=== PATIENT | female | born 1945 | race Caucasian/White ===

== ENCOUNTER 2024-04-14 22:45 | Emergency (ER) | payer MEDICARE, SELFPAY ==
--- NOTE | ~2024-04-14 | CT_ITS ---
EXAMINATION CT HEAD WITHOUT CONTRAST CT CERVICAL SPINE WITHOUT CONTRAST CLINICAL INFORMATION: Head trauma COMPARISON: None TECHNIQUE: CT of the head was performed without intravenous contrast. Reformatted axial, coronal, and sagittal images were reviewed. Then, multidetector CT of the cervical spine was performed without intravenous contrast. Reformatted axial, coronal and sagittal images were reviewed. This CT examination was performed using dose optimization techniques as appropriate, variously including the following: *Automated exposure control *Adjustment of mA and/or kV according to patient size (this includes techniques or standardized protocols for targeted exams where dose is matched to indication/reason for exam; i.e. extremities or head) *Use of iterative reconstruction technique DLP: 1235 mGy-cm FINDINGS: HEAD: No intracranial hemorrhage, extra-axial fluid collection, or midline shift is identified. Tran-white matter differentiation is preserved. Frontoparietal sulcal prominence disproportionate to ventricular size. The ventricles are within normal limits. Basal cisterns are within normal limits. Paranasal sinuses are clear. Mastoid air cells and middle ear cavities are clear. Right parietal scalp hematoma. No acute calvarial fractures. CERVICAL SPINE: There is no fracture, malalignment or prevertebral soft tissue abnormality seen in the cervical spine. There is no abnormal widening of the predental space, separation of the lateral masses of C1 or facet joint distraction. Vertebral body and intervertebral disc height are normal. No significant central canal or neuroforaminal stenosis. The visualized portions of the lung parenchyma is unremarkable. CT/CT head/brain wo IV con IMPRESSION: CT HEAD: 1. No acute intracranial abnormality. 2. Right parietal scalp hematoma without fracture. 3. Frontoparietal cerebral atrophy. CT CERVICAL SPINE: 1. No acute fracture or malalignment of the cervical spine. Electronically signed by: Barry Hansen DO 04/14/2024 11:52 PM EDT
--- NOTE | ~2024-04-14 | CT_ITS ---
EXAMINATION CT HEAD WITHOUT CONTRAST CT CERVICAL SPINE WITHOUT CONTRAST CLINICAL INFORMATION: Head trauma COMPARISON: None TECHNIQUE: CT of the head was performed without intravenous contrast. Reformatted axial, coronal, and sagittal images were reviewed. Then, multidetector CT of the cervical spine was performed without intravenous contrast. Reformatted axial, coronal and sagittal images were reviewed. This CT examination was performed using dose optimization techniques as appropriate, variously including the following: *Automated exposure control *Adjustment of mA and/or kV according to patient size (this includes techniques or standardized protocols for targeted exams where dose is matched to indication/reason for exam; i.e. extremities or head) *Use of iterative reconstruction technique DLP: 1235 mGy-cm FINDINGS: HEAD: No intracranial hemorrhage, extra-axial fluid collection, or midline shift is identified. Tran-white matter differentiation is preserved. Frontoparietal sulcal prominence disproportionate to ventricular size. The ventricles are within normal limits. Basal cisterns are within normal limits. Paranasal sinuses are clear. Mastoid air cells and middle ear cavities are clear. Right parietal scalp hematoma. No acute calvarial fractures. CERVICAL SPINE: There is no fracture, malalignment or prevertebral soft tissue abnormality seen in the cervical spine. There is no abnormal widening of the predental space, separation of the lateral masses of C1 or facet joint distraction. Vertebral body and intervertebral disc height are normal. No significant central canal or neuroforaminal stenosis. The visualized portions of the lung parenchyma is unremarkable. CT/CT cervical spine wo IV con IMPRESSION: CT HEAD: 1. No acute intracranial abnormality. 2. Right parietal scalp hematoma without fracture. 3. Frontoparietal cerebral atrophy. CT CERVICAL SPINE: 1. No acute fracture or malalignment of the cervical spine. Electronically signed by: Barry Hansen DO 04/14/2024 11:52 PM EDT
--- NOTE | ~2024-04-14 | XR_ITS ---
EXAMINATION: XR SHOULDER, RIGHT CLINICAL INFORMATION: Post reduction COMPARISON: Shoulder radiograph 04/15/2024. TECHNIQUE: AP and transscapular radiographs of the right shoulder. FINDINGS: Images are suboptimal secondary to suboptimal radiographic penetration and orientation. Grossly normal glenohumeral joint space and alignment is noted. Right axillary lymph node dissection clips are visualized. Focal cortical discontinuity and irregularity is present along the lateral aspect of the humeral head in the region of the greater tuberosity. XR/XR shoulder RT min 2V IMPRESSION: Normal glenohumeral alignment status post interval reduction compared with 04/15/2024 12:17 AM. Focal cortical irregularity of the humeral head in the region of the greater tuberosity which may represent partial visualization of an acute fracture. Electronically signed by: Riky Padilla MD 04/15/2024 01:54 AM EDT
--- NOTE | ~2024-04-14 | XR_ITS ---
EXAMINATION: RIGHT SHOULDER AND RIGHT HUMERUS CLINICAL INFORMATION: Fall with pain COMPARISON: None available. TECHNIQUE: 2 views right shoulder, 2 views right humerus FINDINGS: There is anteroinferior dislocation of the right glenohumeral joint. No fractures are seen. Some degenerative changes are seen at the right AC joint. Surgical clips present likely in the right axilla. XR/XR shoulder RT min 2V IMPRESSION: Anteroinferior dislocation of the right glenohumeral joint. Electronically signed by: Sadiq Piña MD 04/15/2024 12:37 AM EDT
--- NOTE | ~2024-04-14 | XR_ITS ---
EXAMINATION: RIGHT SHOULDER AND RIGHT HUMERUS CLINICAL INFORMATION: Fall with pain COMPARISON: None available. TECHNIQUE: 2 views right shoulder, 2 views right humerus FINDINGS: There is anteroinferior dislocation of the right glenohumeral joint. No fractures are seen. Some degenerative changes are seen at the right AC joint. Surgical clips present likely in the right axilla. XR/XR humerus RT IMPRESSION: Anteroinferior dislocation of the right glenohumeral joint. Electronically signed by: Sadiq Piña MD 04/15/2024 12:37 AM EDT
[2024-04-14 22:55] VITALS: BP 150/100; PULSE 80; O2SAT 98
[2024-04-14 22:56] VITALS: BP 180/88; PULSE 99; RESP 22; TEMP 36.7; O2SAT 97; BMI 41.0
--- NOTE | 2024-04-14 23:17 | ED.FALL ---
HPI - Fall General Chief Complaint: Fall Stated Complaint: HUBERT FALL +HS -LOC, R ARM PAIN PER EMS Source: patient and EMS Mode of arrival: EMS Limitations: no limitations History of Present Illness ED Provider: CARL HPI Narrative: 79 yo female with PMH of throat cancer on therapy, daily baby aspirin who reports feeling fine today but went to go downstairs and thought she was at the bottom of stairs but in fact there was another step and she fell down hitting her head on floor. No LOC. Brother came right up and got her. She has pain on R shoulder. She is R hand dominant. Denies any other injuries. complaint: fall Onset (ago): hour(s) (1) Fall from: standing Fall witnessed: no Place fall occurred: home Loss of consciousness: none Prolonged down time: no Symptoms prior to fall: none Context: tripped/slipped Location of injury: head Location of injury - extremities: right: shoulder Severity: moderate Quality: dull and aching Associated symptoms (after fall): headache Related Data Allergies Allergy/AdvReac Type Severity Reaction Status Date / Time No Known Allergies Allergy Verified 04/14/24 23:01 [No Known Allergies*] Review of Systems Review of Systems: Constitutional : No Fever, No Chills ENT/Mouth : No Ear Pain, No Hoarseness, No sore throat Eyes: No Eye Pain, No Swelling, No Redness, No Foreign Body Cardiovascular : No Chest Pain, No SOB Respiratory : No Cough, No Dyspnea Gastrointestinal : No Nausea, No Vomiting, No Diarrhea, No abdominal Pain Genitourinary : No Dysuria, No Hematuria Musculoskeletal : positive joint pain, No Myalgias, No Joint Swelling Skin : No Skin lacerations, No rash Neuro : No Weakness, No Numbness, No Loss of Consciousness, No Dizziness, pos Headache Psych : No Anxiety/Panic, No Depression All other systems reviewed and are negative COUNTS INCLUDE 234 BEDS AT THE [facility] Past Medical History Attestation statement: The following information was validated with the patient. Source: old records reviewed Medical History (Updated 04/15/24 @ 00:53 by Fern Barber DO) Throat cancer Social History Social History (Updated 04/14/24 @ 23:35 by Fern Barber DO) Patient Tobacco Use Status: Tobacco use Unknown Advance Directives: No Physical Exam Vital Signs: Vital Signs: Last Vital Signs Temp 98.2 F 04/15/24 03:13 Pulse 92 04/15/24 03:13 Resp 20 04/15/24 03:13 BP 139/66 04/15/24 03:13 Pulse Ox 94 04/15/24 03:13 O2 Del Method Room Air 04/15/24 03:13 Oxygen Flow Rate 3 04/15/24 01:30 BMI result Body Mass Index 41.0 Appearance: Alert. Oriented X3. No acute distress. Eyes: Pupils equal, round and reactive to light. ENT: Pharynx normal. R parietal scalp hematoma noted no iqbal or raccoon sign Neck: Normal inspection. Neck supple. CVS: Normal heart rate and rhythm. Pulses normal. Respiratory: No respiratory distress. Breath sounds normal. Abdomen: Soft and nontender. Skin: Skin warm and dry. Normal skin color. Normal skin turgor. Extremities: No lower extremity edema. 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 No motor deficit. No sensory deficit. Course Course Course Narrative: possible greater tuberosity fracture on xray but patient was very easy to reduce x 1 attempt with simple maneuver no issues did notify patient of results of post reduction xray Medications Administered Discontinued Medications Generic Name Dose Route Start Last Admin Trade Name Dick PRN Reason Stop Dose Admin Morphine Sulfate 15 mg 04/14/24 23:06 04/14/24 23:35 Morphine Sulfate Immed Release 15 Mg Tablet PO 04/14/24 23:07 15 mg ONCE ONE Administration Ondansetron HCl 4 mg 04/15/24 01:27 04/15/24 01:18 Ondansetron Hcl 4 Mg/2 Ml Vial IVPUSH 04/15/24 01:28 4 mg ONCE ONE Administration Propofol 100 mg 04/15/24 00:38 04/15/24 01:20 Propofol 200 Mg/20 Ml Vial IVPUSH 04/15/24 00:39 50 mg ONCE ONE Administration Procedures Orthopedic Joint Reduction Joint #1: Time Out Performed: Yes Side: right Joint Reduction Location: shoulder Analgesia: procedural sedation Shoulder Technique Used (if applicable): external rotation Post-reduction neuro exam: intact and no change Post-reduction vascular: intact and no change Post Reduction X-Ray Obtained: Yes Post Reduction X-Ray Results: reduced Splint Applied: Yes Patient Tolerated Procedure: well and no complications Procedural Sedation Indication: fracture/dislocation reduction ASA Class: II Mallampati Class: II Time of Last PO Intake: 18:00 Preparation: cardiac monitor technician applied, pulse oximeter, capnometry used, supplemental O2 applied, suction/airway equipment at bedside and IV secured IV Propofol dose (mg): 50 Patient Tolerated Procedure: well and no complications Complications: none Medical Decision Making Medical Decision Making MDM Narrative: 79 yo female with PMH of throat cancer here with c/o mechanical trip and fall now with R shoulder injury and head trauma not on thinners at this time will need shoulder xray and head/cspine. PO morphine ordered. Differential Diagnosis Differential Diagnoses: The differential diagnosis associated with the presentation includes head trauma, neck trauma, shoulder fracture/contusion/dislocation Admission/Observation Consideration of admission/observation: Escalation of care including admission/observation considered back to baseline GCS 15 Independent Interpretation I performed an independent interpretation of an: Plain X-Ray (+ dislocation) and CT Scan (no trauma) Radiology Impression Discussion of test interpretation with radiology: I have reviewed the radiologist's reading. Independent Historian Clinical information obtained from an independent historian. History obtained from or confirmed by: EMS and Other Discharge Plan Discharge Clinical Impression: Head injury Qualifiers: Encounter type: initial encounter Qualified Code(s): S09.90XA - Unspecified injury of head, initial encounter Anterior shoulder dislocation Qualifiers: Encounter type: initial encounter Laterality: right Qualified Code(s): S43.014A - Anterior dislocation of right humerus, initial encounter Patient Disposition: Home, Self-Care Instructions: Shoulder Dislocation (ED), Head Injury (ED), Shoulder Immobilizer (ED) Additional Instructions: no reaching above behind or below for 2 weeks no lifting more than 10lbs for 2 weeks sling for one week can take off to shower follow up with orthopedics call Tuesday to schedule appointment return for any worsening symptoms or concerns such as numbness weakness vomiting confusion xray did show possible small fracture of the greater tuberosity of the humeral head it is important you follow up with orthopedics so they can monitor you Referrals: [facility] [place] Orthopedic Surgeons [Provider Group] Interventions: ED Discharge Assessment Last Done: 04/15/24 03:13 Discharge Date/Time: 04/15/24 03:15 Print Language: Thai
[2024-04-14] MEDS: Morphine Sulfate Immed Release 15 MG TABLET PO (23:35)
--- OUTSIDE RECORDS SUMMARY | 2024-04-14 23:39 | XMS_ITS | Continuity of Care Document ---
Author Organization [facility] Address [address] [place] [address]- Care Team Providers Care Land Sales Agent Name Role Phone Aditya Haley HU Primary Care Physician Encounter [facility] Date(s): 11/10/21 - 12/10/21 [facility] [address] [place] [id number] Allergies, Adverse Reactions, Alerts No Known Allergies Immunizations Given and Recorded Vaccine Date Status Refusal Reason SARS-CoV-2 (COVID-19) mRNA BNT-162b2 vac 03/26/21 Recorded SARS-CoV-2 (COVID-19) mRNA BNT-162b2 vac 08/25/20 Given SARS-CoV-2 (COVID-19) mRNA BNT-162b2 vac 08/04/20 Given influenza virus vaccine, inactivated 02/17/21 Carrillo rded Influenza Virus Vaccine (oldterm) 03/19/20 Recorde d Influenza Virus Vaccine (oldterm) 03/17/19 Recorde d zoster vaccine, inactivated 08/05/18 Recorded zoster vaccine, inactivated 03/23/18 Recorded pneumococcal 23-valent vaccine 04/01/17 Recorded pneumococcal 23-valent vaccine 06/20/09 Recorded pneumococcal 13-valent vaccine 10/28/15 Recorded pneumococcal 13-valent vaccine 06/20/15 Recorded Not Given Vaccine Date Status Refusal Reason tetanus-diphtheria toxoids (Td) 06/27/19 Not Given Parent Or Guardian Refuses tetanus-diphtheria toxoids (Td) 01/16/19 Not Given Parent Or Guardian Refuses Medications benazepril-hydrochlorothiazide 10 mg-12.5 mg oral tablet 1 tablet, By Mouth, Daily, # 90 tablet, 3 Refills, Maintenance, 11/06/20 16:40:00 EDT, [facility], 90, TAKE 1 TABLET BY MOUTH DAILY, 156, cm, 12/27/19 12:57:00 EDT, Height Start Date: 11/06/20 Status: Ordered fenofibrate 160 mg oral tablet 1 tablet, By Mouth, Daily in AM, # 90 tablet, 3 Refills, [facility], 156, cm, 12/27/19 12:57:00 EDT, Height Start Date: 05/04/21 Status: Ordered Fish Oil = 1,000 mg, By Mouth, Daily, 0 Refills, Maintenance, 05/09/18 13:21:40 EST Start Date: 05/09/18 Status: Ordered lidocaine-prilocaine 2.5%-2.5% topical cream 1 application, Topically, Once, use 40 min before port access, # 30 Gm, 0 Refills, Soft Stop, 11/30/21 16:17:00 EDT, [id number], Partial fill upon patient request if the prescription is for a schedule II opioid drug., 1 applica... Start Date: 11/30/21 Status: Ordered Misc Rx Refills 0, Maintenance, [facility], 10/27/21 14:50:00 EDT, Supply Start Date: 10/27/21 Status: Ordered Multivitamin Daily, 0 Refills, Maintenance, 09/05/18 15:47:17 EDT Start Date: 09/05/18 Status: Ordered omeprazole 20 mg oral enteric coated capsule 1 capsule, By Mouth, Daily, # 90 capsule, 0 Refills, Maintenance, 09/01/21 10:17:00 EDT, [facility], 156, cm, 09/01/21 8:41:00 EDT, Height Start Date: 09/01/21 Status: Ordered ondansetron 8 mg oral tablet 1 tablet = 8 mg, By Mouth, Every 8 hours, PRN as needed for nausea/vomiting, # 30 tablet, 1 Refills, Maintenance, 11/30/21 8:53:00 EDT, Tablet, [facility] #[id number], Partial fill upon patient request if the prescription is for a schedule II opi... Start Date: 11/30/21 Status: Ordered oxybutynin 10 mg/24 hr oral tablet, extended release 1 tablet = 10 mg, By Mouth, Daily, # 90 tablet, 3 Refills, Maintenance, 05/02/19 13:43:21 EST, ER Tablet Start Date: 05/02/19 Status: Ordered prochlorperazine 5 mg oral tablet 1 tablet = 5 mg, By Mouth, Every 6 hours, PRN Nausea & Vomiting, may cause drowsiness, # 30 tablet, 0 Refills, Maintenance, 11/30/21 8:53:00 EDT, [facility] #[id number], Partial fill upon patient request if the prescription is for a schedule II o... Start Date: 11/30/21 Status: Ordered traMADol 50 mg oral tablet 1 tablet = 50 mg, By Mouth, Every 12 hours, PRN as needed for pain, # 8 tablet, 0 Refills, Maintenance, 11/25/21 14:58:00 EDT, Tablet, [facility] #[id number], Partial fill upon patient request if the prescription is for a schedule II opioid drug.... Start Date: 11/25/21 Status: Ordered Problem List Condition Effective Dates Status Health Status Inform ant Allergic rhinitis(Confirmed) Active OAB (overactive bladder)(Confirmed) Active Chronic kidney disease (CKD) stage G3a/Ax(Confirmed) Active Bochdalek hernia(Confirmed) Active Degenerative lumbar disc(Confirmed) Active Dyslipidemia(Confirmed) Active GERD (gastroesophageal reflu x disease)(Confirmed) Active History of breast cancer ([facility] breast) 1996 S/P umpectomy and radiation(Confirmed) Active Hypertension(Confirmed) Active Nephrolithiasis(Confirmed) Active Malignant neoplasm of tonsil(Confirmed) Active Morbid obesity(Confirmed) Active Multiple pulmonary nodules - incidental finding stable, next CT December 2019(Confirmed) Active DNR (do not resuscitate)(Confirmed) Active Osteopenia of femoral neck(Confirmed) Active NSAID long-term use(Confirmed) Active Severe obesity(Confirmed) Active Social History Social History Type Response Smoking Status Former smoker, quit more than 30 days ago; Tobacco use times per day: social smoker; Started at age: 18; Stopped at age: 23; entered on: 06/29/21 Sex
--- OUTSIDE RECORDS SUMMARY | 2024-04-14 23:40 | XMS_ITS | Continuity of Care Document ---
Author Organization [facility] Leonid Sergo lt Address [address] [place] [address]- Care Team Providers Care Cma Or Lpn Name Role Phone Aditya MANUFACTURING WEAVERHaley Primary Care Physician Encounter [facility] Date(s): 06/14/23 - 07/14/23 [facility] Adult [address] [place] [address]- Allergies, Adverse Reactions, Alerts No Known Allergies Immunizations Given and Recorded Vaccine Date Status Refusal Reason pneumococcal 20-valent conjugate vaccine 1 01/17/23 Given [id number] 12y+ bivalent booster vax 2 04/27/22 Given influenza virus vaccine, inactivated 04/09/22 Carrillo rded influenza virus vaccine, inactivated 02/17/21 Carrillo rded influenza virus vaccine, inactivated 03/23/18 Carrillo rded influenza virus vaccine, inactivated 04/01/17 Carrillo rded influenza virus vaccine, inactivated 03/18/16 Carrillo rded SARS-CoV-2 mRNA ([id number]) vax 09/30/21 Recorded SARS-CoV-2 (COVID-19) mRNA BNT-162b2 vac 03/26/21 Recorded SARS-CoV-2 (COVID-19) mRNA BNT-162b2 vac 08/25/20 Given SARS-CoV-2 (COVID-19) mRNA BNT-162b2 vac 08/04/20 Given Influenza Virus Vaccine (oldterm) 03/19/20 Recorde d Influenza Virus Vaccine (oldterm) 03/17/19 Recorde d zoster vaccine, inactivated 08/05/18 Recorded zoster vaccine, inactivated 03/23/18 Recorded pneumococcal 23-valent vaccine 04/01/17 Recorded pneumococcal 23-valent vaccine 06/20/09 Recorded pneumococcal 13-valent vaccine 10/28/15 Recorded pneumococcal 13-valent vaccine 06/20/15 Recorded 1Result Comment: [id number] 2Result Comment: [id number] Medications 1 breast prosthesis and three bras 1 breast prosthesis and three bras, See Instructions, # 4 each, Refills 0, Tot. Refills 0, Maintenance, DX: Breast cancer, 10/29/22 14:22:00 EDT, Supply Start Date: 10/29/22 Status: Ordered cevimeline 30 mg oral capsule 1 capsule = 30 mg, By Mouth, 3 times a day, Stop taking Pilocarpine when taking this medication, # 90 capsule, 1 Refills, Maintenance, 06/14/23 12:25:00 EST, Capsule, [id number], Partial fillupon patient request if the prescription is for a s... Start Date: 06/14/23 Stop Date: 08/13/23 Status: Ordered fenofibrate 160 mg oral tablet 1 tablet, By Mouth, Daily, # 90 tablet, 1 Refills, Maintenance, 06/14/23 20:37:00 EST, [facility], 153, cm, 04/14/23 15:06:00 EDT, Height, 87.6, kg, 04/14/23 15:06:00 EDT, Dry Weight Start Date: 06/14/23 Status: Ordered omeprazole 20 mg oral enteric coated capsule 1 capsule, By Mouth, Daily, PRN NEEDED FOR DYSPEPSIA, # 90 capsule, 1 Refills, Maintenance, 04/05/23 10:51:00 EDT, [facility] ([facility]), 153, cm, 01/17/23 9:12:00 EDT, Height, 93.3, kg, 09/29/22 15:49:00 EDT, Dry Weight Start Date: 04/05/23 Status: Ordered PreviDent 5000 Enamel Protect 1.1%-5% topical paste 1 application, Topically, 2 times a day, rinse and spit; do not swallow, # 100 mL, 6 Refills, Maintenance, 04/14/23 18:52:00 EDT, Paste, [id number], Partial fill upon patient request if the prescription is for a schedule II opioid drug., 1 aminah... Start Date: 04/14/23 Stop Date: 06/07/24 Status: Ordered Problem List Condition Confirmation Course Effective Dates Status H ealth Status Informant Allergic rhinitis Confirmed Active OAB (overactive bladder) Confirmed Active Chronic kidney disease (CKD) stage G3a/Ax Confirmed Active Bochdalek hernia Confirmed Active Degenerative lumbar disc Confirmed Active Dyslipidemia Confirmed Active GERD (gastroesophageal reflux disease) Confirmed Active History of breast cancer (right breast) 1996 S/P umpectomy and radiation Confirmed Active History of cancer tonsil Confirmed Active Nephrolithiasis Confirmed Active Multiple pulmonary nodules Confirmed Active DNR (do not resuscitate) Confirmed Active Osteopenia of femoral neck Confirmed Active Severe obesity (BMI 35.0-39.9) with comorbidity Confirmed Active 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 Social History Social History Type Response Smoking Status Former smoker, quit more than 30 days ago; Tobacco use times per day: social smoker; Started at age: 18; Stopped at age: 23; entered on: 06/29/21 Sex Patient Care team information Care Team Personnel Name: Camille Mathew RN Position: S RN Member Role: Primary Care Nurse Name: Haley Burgess NP Position: [facility] PCO Associate Professional Member Role: PCP Address: Address: [address] [place] [phone]- [place] Name: Poornima Martinez RN Position: S RN Member Role: Primary Care Nurse Name: Suhail Duckworth RN Position: [facility] RN Adela Member Role: Primary Care Nurse Name: Holli Ramos RN Position: S RN Member Role: Primary Care Nurse Name: Katina Samaniego Position: S RN Member Role: Primary Care Nurse Name: Felecia Hernandez RN Position: [facility] Onco RN Member Role: Primary Care Nurse Name: Verito Alonzo NP Position: [facility] Associate Professional Member Role: Primary Care Nurse Address: Address: [address] [place] [address] [place] [address]- [place] Name: Minh Bryant RN Position: S RN Member Role: Primary Care Nurse Care Team Related Persons Name: ZAINA ROBERSON Address: [address] [address]
--- OUTSIDE RECORDS SUMMARY | 2024-04-14 23:40 | XMS_ITS | Continuity of Care Document ---
Author Organization [facility] ter Address [address] [place] [id number]- Care Team Providers Care Glass Mold Repairer Name Role Phone Aditya Haley HU Primary Care Physician Encounter [facility] Date(s): 11/23/21 - 11/23/[address] [address] Dis[facility] Disposition: A-D/C Home Attending Physician: Ken Young MD Admitting Physician: Ken Young MD Referring Physician: Ken Young MD Allergies, Adverse Reactions, Alerts No Known Allergies [...] 13:21:40 EST Start Date: 05/09/18 Status: Ordered Misc Rx Refills 0, Maintenance, [...] EDT, Height Start Date: 09/01/21 Status: Ordered oxybutynin 10 mg/24 hr oral tablet, extended release 1 tablet = 10 mg, By Mouth, Daily, # 90 tablet, 3 Refills, Maintenance, 05/02/19 13:43:21 EST, ER Tablet Start Date: 05/02/19 Status: Ordered Problem List Condition Effective Dates Status Health Status Inform ant Allergic rhinitis(Confirmed) Active OAB (overactive bladder)(Confirmed) Active Chronic kidney disease (CKD) stage G3a/Ax(Confirmed) Active Bochdalek hernia(Confirmed) Active Degenerative lumbar disc(Confirmed) Active Dyslipidemia(Confirmed) Active GERD (gastroesophageal reflu x disease)(Confirmed) Active History of breast cancer ([facility] breast) 1996 S/P umpectomy and radiation(Confirmed) Active Hypertension(Confirmed) Active Nephrolithiasis(Confirmed) Active Malignant neoplasm of tonsil(Confirmed) Active Morbid obesity(Confirmed) Active Multiple pulmonary nodules - incidental finding stable, next CT December 2019(Confirmed) Active DNR (do not resuscitate)(Confirmed) Active Osteopenia of femoral neck(Confirmed) Active NSAID long-term use(Confirmed) Active Severe obesity(Confirmed) Active Vital Signs Most recent to oldest [Reference Range]: 1 2 3 Height 155 cm (11/23/21 6:51 PM) 155 cm (11/23/21 11:59 AM) 155 cm (11/19/21 11:50 AM) Weight 104.1 kg (11/23/21 6:51 PM) 104.1 kg (11/23/21 6:23 PM) 103.5 kg (11/19/21 11:50 AM) Oxygen Saturation [94-100 %] 97 % (11/23/21 6:51 PM) 96 % (11/23/21 6:00 PM) 93 % *L* (11/23/21 5:45 PM) Pulse Rate [55-90 bpm] 95 bpm *H* (11/23/21 6:51 PM) 92 bpm *H* (11/23/21 11:59 AM) Body Mass Index [18.5-24.99] 43.33 *>HHI* (11/23/21 6:51 PM) 43.08 *>HHI* (11/19/21 11:50 AM) Blood Pressure [90-138/55-84 mm Hg] 105/47mm Hg (11/23/21 6:51 PM) 116/59mm Hg (11/23/21 6:00 PM) 122/60mm Hg (11/23/21 5:45 PM) Respiratory Rate [16-30 br/min] 18 br/min (11/23/21 6:51 PM) 24 br/min (11/23/21 6:00 PM) 21 br/min (11/23/21 5:45 PM) Temperature [96.8-100.4 DegF] 98.2 DegF (11/23/21 6:51 PM) 98.2 DegF (11/23/21 4:30 PM) 97.7 DegF (11/23/21 11:59 AM) Liters per Minute 2 L/min (11/23/21 6:51 PM) 4 L/min (11/23/21 5:45 PM) 4 L/min (11/23/21 5:30 PM) Mode of Delivery (Oxygen) Nasal cannula (11/23/21 6:51 PM) Nasal cannula (11/23/21 5:45 PM) Nasal cannula (11/23/21 5:30 PM) Blood pressure sites Arm, right (11/23/21 6:51 PM) Arm, left (11/23/21 6:00 PM) Arm, left (11/23/21 5:45 PM) Temperature Route Oral (11/23/21 6:51 PM) Temporal (11/23/21 4:30 PM) Temporal (11/23/21 11:59 AM) Dry Weight 103.5 kg (11/19/21 11:50 AM) Weight Obtained Via Standing scale (11/23/21 6:51 PM) Standing scale (11/23/21 6:23 PM) Patient/family stated (11/19/21 11:50 AM) Dry Weight Obtained Via Patient/family s tated (11/19/21 11:50 AM) Social History Social History Type Response Smoking Status Former smoker, quit more than 30 days ago; Tobacco use times per day: social smoker; Started at age: 18; Stopped at age: 23; entered on: 06/29/21 Sex
--- OUTSIDE RECORDS SUMMARY | 2024-04-14 23:40 | XMS_ITS | Continuity of Care Document ---
Author Organization [facility] Address [address] [place] [address]- Care Team Providers Care Multicut Line Operator Name Role Phone Aditya Haley HU Primary Care Physician Encounter [facility] Date(s): 05/11/22 - 06/10/22 [facility] [address] [place] [id number] Allergies, Adverse Reactions, Alerts No Known Allergies Immunizations Given and Recorded Vaccine Date Status Refusal Reason [id number] 12y+ bivalent booster vax 1 04/27/22 Given influenza virus vaccine, inactivated 04/09/22 Carrillo rded influenza virus vaccine, inactivated 02/17/21 Carrillo rded influenza virus vaccine, inactivated 03/23/18 Carrillo rded influenza virus vaccine, inactivated 04/01/17 Carrillo rded influenza virus vaccine, inactivated 03/18/16 Carrillo rded SARS-CoV-2 mRNA ([id number]) vax 09/30/21 Recorded SARS-CoV-2 (COVID-19) mRNA BNT-162b2 [...] 01/16/19 Not Given Parent Or Guardian Refuses 1Result Comment: [id number] Medications acetaminophen 160 mg/5 mL oral liquid 20 mL = 640 mg, By Mouth, 3 times a day, PRN Pain , Mild, Check temperature before using, # 480 mL,2 Refills, Maintenance, 12/22/21 14:32:00 EDT, Liquid, [id number], Partial fill upon patient request if the prescription is for a sche... Start Date: 12/22/21 Status: Ordered cevimeline 30 mg oral capsule 1 capsule = 30 mg, By Mouth, 3 times a day, for 14 days, Stop taking Pilocarpine when taking this medication, # 42 capsule, 0 Refills, Hard Stop 06/14/22 11:18:00 EST, 05/31/22 11:18:00 EST, [id number], Partial fill upon edita... Start Date: 05/31/22 Stop Date: 06/14/22 Status: Ordered cevimeline 30 mg oral capsule 1 capsule = 30 mg, By Mouth, 3 times a day, Stop taking Pilocarpine when taking this medication, # 90 capsule, 5 Refills, Maintenance, 06/14/22 11:18:00 EST, Capsule, [facility] #[id number], Partial fill upon patient request if the prescription i... Start Date: 06/14/22 Stop Date: 12/11/22 Status: Ordered lidocaine-prilocaine 2.5%-2.5% topical cream 1 application, Topically, Once, use 40 min before port access, # 30 Gm, 0 Refills, Soft Stop, 11/30/21 16:17:00 EDT, [facility][id number], Partial fill upon patient request if the prescription is for a schedule II opioid drug., 1 applica... Start Date: 11/30/21 Status: Ordered omeprazole 20 mg oral enteric coated capsule 1 capsule = 20 mg, By Mouth, Daily, Maintenance, 05/11/22 11:55:00 EST, [facility], Partial fill upon patient request if the prescription is for a schedule II opioid drug. Start Date: 05/11/22 Status: Ordered Problem List Condition Confirmation Course Effective Dates Status H ealth Status Informant Allergic rhinitis Confirmed Active OAB (overactive bladder) Confirmed Active Chronic kidney disease (CKD) stage G3a/Ax Confirmed Active Bochdalek hernia Confirmed Active Degenerative lumbar disc Confirmed Active Dyslipidemia Confirmed Active GERD (gastroesophageal reflux disease) Confirmed Active History of breast cancer (right breast) 1996 S/P umpectomy and radiation Confirmed Active Hypertension Confirmed Active Nephrolithiasis Confirmed Active Malignant neoplasm of tonsil Confirmed Active Multiple pulmonary nodules Confirmed Active DNR (do not resuscitate) Confirmed Active Osteopenia of femoral neck Confirmed Active NSAID long-term use Confirmed Active Severe obesity (BMI 35.0-39.9) with comorbidity Confirmed Active Social History Social History Type Response Smoking Status Former smoker, quit more than 30 days ago; Tobacco use times per day: social smoker; Started at age: 18; Stopped at age: 23; entered on: 06/29/21 Sex Patient Care team information Care Team Personnel Name: Camille Mathew RN Position: [facility] RN Member Role: Primary Care Nurse Name: Haley Burgess NP Position: [facility] PCO Associate Professional Member Role: PCP Address: Address: [address] [place] [phone]- Name: Suhail Duckworth RN Position: S RN Member Role: Primary Care Nurse Name: Holli Ramos RN Position: S RN Member Role: Primary Care Nurse Name: Felecia Hernandez RN Position: S Onco RN Member Role: Primary Care Nurse Name: Verito Alonzo RN Position: S RN Member Role: Primary Care Nurse Name: Minh Bryant RN Position: S RN Member Role: Primary Care Nurse Care Team Related Persons Name: DAZAINA Melissa Address: home [address] [place] [address]
--- OUTSIDE RECORDS SUMMARY | 2024-04-14 23:40 | XMS_ITS | Continuity of Care Document ---
Author Organization [facility] Address [address] [place] [address]- Care Team Providers Care Tank Calibrator Name Role Phone Aditya LEAD CYTOGENETIC TECHNOLOGIST, Haley Brownlee Primary Care Physician Encounter 10/03/22 - 10/28/22 [facility] [address] [place] [phone]- Discharge Disposition: [facility] Allergies, Adverse Reactions, Alerts No Known Allergies Immunizations Given and Recorded Vaccine Date Status Refusal Reason [id number] 12y+ bivalent booster vax 1 04/27/22 Given influenza virus vaccine, inactivated 04/09/22 Carrillo rded influenza virus vaccine, inactivated 02/17/21 Carrillo rded influenza virus vaccine, inactivated 03/23/18 Carrillo rded influenza virus vaccine, inactivated 04/01/17 Carrillo rded influenza virus vaccine, inactivated 03/18/16 Carrillo rded SARS-CoV-2 mRNA ([id number]) vax 09/30/21 Recorded SARS-CoV-2 (COVID-19) mRNA BNT-162b2 [...] 13-valent vaccine 10/28/15 Recorded pneumococcal 13-valent vaccine 1/1/16 Recorded Not Given Vaccine Date Status Refusal Reason tetanus-diphtheria toxoids (Td) 06/27/19 Not Given Parent Or Guardian Refuses tetanus-diphtheria toxoids (Td) 01/16/19 Not Given Parent Or Guardian Refuses 1Result Comment: [id number] Medications acetaminophen 160 mg/5 mL oral liquid 20 mL = 640 mg, By Mouth, 3 times a day, PRN Pain , Mild, Check temperature before using, # 480 mL,2 Refills, Maintenance, 12/22/21 14:32:00 EDT, Liquid, [facility][id number], Partial fill upon patient request if the prescription is for a sche... Start Date: 12/22/21 Status: Ordered cevimeline 30 mg oral capsule 1 capsule = 30 mg, By Mouth, 3 times a day, Stop taking Pilocarpine when taking this medication, # 90 capsule, 5 Refills, Maintenance, 06/14/22 11:18:00 EST, Capsule, [facility] #[id number], Partial fill upon patient request if the prescription i... Start Date: 06/14/22 Stop Date: 12/11/22 Status: Ordered cevimeline 30 mg oral capsule 1 capsule = 30 mg, By Mouth, 3 times a day, # 270 capsule, 0 Refills, Maintenance, 09/29/22 4:45:00EDT, Capsule, Partial fill upon patient request if the prescription is for a schedule II opioid drug. Start Date: 09/29/22 Status: Ordered fenofibrate 160 mg oral tablet 1 tablet = 160 mg, By Mouth, Daily, # 90 tablet, 1 Refills, Maintenance, 07/16/22 11:49:00 EST, Tablet, [facility] #[id number], 156, cm, 07/14/22 10:10:00 EST, Height, 91.5, kg, 06/08/22 10:54:00 EST, Dry Weight Start Date: 07/16/22 Stop Date: 01/12/23 Status: Ordered omeprazole 20 mg oral enteric coated capsule 1 capsule = 20 mg, By Mouth, Daily, PRN Dyspepsia, Maintenance, 05/11/22 11:55:00 EST, EC Capsule Start Date: 05/11/22 Status: Ordered ondansetron 4 mg oral tablet 1 tablet = 4 mg, By Mouth, Every 8 hours, # 30 tablet, 0 Refills, Maintenance, 09/26/22 11:11:00 EDT, Tablet, [id number], Partial fill upon patient request if the prescription is for a schedule II opioid drug., 156, cm, 09/16/22 14:53:00 EDT,... Start Date: 09/26/22 Status: Ordered Problem List Condition Confirmation Course Effective Dates Status H ealth Status Informant Allergic rhinitis Confirmed Active OAB (overactive bladder) Confirmed Active Chronic kidney disease (CKD) stage G3a/Ax Confirmed Active Bochdalek hernia Confirmed Active Degenerative lumbar disc Confirmed Active Dyslipidemia Confirmed Active GERD (gastroesophageal reflux disease) Confirmed Active History of breast cancer (right breast) 1996 S/P umpectomy and radiation Confirmed Active Nephrolithiasis Confirmed Active Malignant neoplasm [...] Team Personnel Name: Camille Mathew RN Position: [facility] RN Member Role: Primary Care Nurse Name: Haley Burgess NP Position: [facility] PCO Associate Professional Member Role: PCP Address: Address: [address] [place] [id number] Name: Poornima Martinez RN Position: S RN Member Role: Primary Care Nurse Name: Suhail Duckworth RN Position: [facility] RN Supv Member Role: Primary Care Nurse Name: Holli [...] Persons Name: DAZAINA Melissa Address: home [address] [place] [address]
--- OUTSIDE RECORDS SUMMARY | 2024-04-14 23:40 | XMS_ITS | Continuity of Care Document ---
Author Organization [facility] Leonid Sergo lt Address [address] [place] [address]- Care Team Providers Care Animal Rescuer Name Role Phone Cynthia SEGURA, Ricardo Nicole Primary Care Physician Encounter [facility] Date(s): 06/23/20 - 07/23/20 [facility] Adult [address] [place] [address]- Allergies, Adverse Reactions, Alerts Substance Reaction Severity Status NKA Active Immunizations Given and Recorded Vaccine Date Status Refusal Reason Influenza Virus Vaccine (oldterm) 03/19/20 Recorde d Influenza Virus Vaccine (oldterm) 03/17/19 Recorde d zoster vaccine, inactivated 08/05/18 Recorded zoster vaccine, inactivated 03/23/18 Recorded pneumococcal 13-valent vaccine 06/20/15 Recorded pneumococcal 23-valent vaccine 06/20/09 Recorded Not Given Vaccine Date Status Refusal Reason tetanus-diphtheria toxoids (Td) 06/27/19 Not Given Parent Or Guardian Refuses tetanus-diphtheria toxoids (Td) 01/16/19 Not Given Parent Or Guardian Refuses Medications aspirin 81 mg oral tablet 1 tablet = 81 mg, By Mouth, Daily, 0 Refills, Maintenance, 05/09/18 13:22:31 EST Start Date: 05/09/18 Status: Ordered benazepril-hydrochlorothiazide 10 mg-12.5 mg oral tablet 1 tablet, By Mouth, Daily, # 90 tablet, 0 Refills, Maintenance, 06/23/20 11:16:00 EST, Tablet, [facility], 1 tablet By Mouth Daily, 156, cm, 12/27/19 12:57:00 EDT, Height, 117.7, kg, 08/22/18 15:00:00 EST, Dry Weight Start Date: 06/23/20 Status: Ordered fenofibrate 160 mg oral tablet 1 tablet = 160 mg, By Mouth, Daily in AM, # 90 tablet, 3 Refills, Maintenance, 06/26/20 17:13:00 EST, Tablet, [facility], 156, cm, 12/27/19 12:57:00 EDT, Height, 117.7, kg, 08/22/18 15:00:00 EST, Dry Weight Start Date: 06/26/20 Status: Ordered Fish Oil By Mouth, Daily, 0 Refills, Maintenance, 05/09/18 13:21:40 EST Start Date: 05/09/18 Status: Ordered Lab Order Lab Order, See Instructions, # 1 applicator, Refills 0, Tot. Refills 0, Maintenance, Electrolytes, BUN, Creatinine Please draw by Tuesday Send results to myself and Dr. Ricardo Marie, 08/23/18 11:40:52EST, Compound Start Date: 08/23/18 Status: Ordered Multivitamin Daily, 0 Refills, Maintenance, 09/05/18 15:47:17 EDT Start Date: 09/05/18 Status: Ordered Nasacort Allergy 24HR 55 mcg/inh nasal spray 2 sprays, Nares, Both, Daily at bedtime, # 40 Gm, 5 Refills, Maintenance, 04/12/19 13:35:04 EDT, 2 sprays Nares, Both Daily at bedtime Start Date: 04/12/19 Status: Ordered omeprazole 20 mg oral enteric coated capsule 1 capsule = 20 mg, By Mouth, Daily, # 90 capsule, 0 Refills, Maintenance, 06/04/20 9:21:00 EST, EC Capsule, [facility], 156, cm, 12/27/19 12:57:00 EDT, Height, 117.7, kg, 08/22/18 15:00:00 EST, Dry Weight Start Date: 06/04/20 Status: Ordered oxybutynin 10 mg/24 hr oral tablet, extended release 1 tablet = 10 mg, By Mouth, Daily, # 90 tablet, 3 Refills, Maintenance, 05/02/19 13:43:21 EST, ER Tablet Start Date: 05/02/19 Status: Ordered Problem List Condition Effective Dates Status Health Status Inform ant Allergic rhinitis(Confirmed) Active OAB (overactive bladder)(Confirmed) Active Chronic kidney disease (CKD) stage G3a/Ax(Confirmed) Active Dyslipidemia(Confirmed) Active GERD (gastroesophageal reflu x disease)(Confirmed) Active Hypertension(Confirmed) Active Nephrolithiasis(Confirmed) Active Breast cancer, right - 1996, Lumpectomy and radiation(Confirmed) Active Morbid obesity(Confirmed) Active Multiple pulmonary nodules - incidental finding stable, next CT December 2019(Confirmed) Active Social History Social History Type Response Smoking Status Former smoker, quit more than 30 days ago; Total pack years: 5; Started at age: 18; Stopped at age: 23; entered on: 08/21/18 Sex
--- OUTSIDE RECORDS SUMMARY | 2024-04-14 23:40 | XMS_ITS | Continuity of Care Document ---
Author Organization [facility] Sal Jaquez Sergo lt Address [address] [place] [phone]- Care Team Providers Care Cavalry Scout Name Role Phone Ricardo Marie MD Primary Care Physician [place] [facility] [place] 06/27/19 - 07/04/19 [facility] Sal Jaquez Adult [address] [place] [address]- [facility] Encounter Diagnosis Chronic cough(Discharge Diagnosis) - 06/27/19 GERD (gastroesophageal reflux disease)(Discharge Diagnosis) - 06/27/19 Attending Physician: Ricardo Marie MD Allergies, Adverse Reactions, Alerts Substance Reaction Severity Status NKA Active Immunizations Given and Recorded Vaccine Date Status Refusal Reason Influenza Virus Vaccine (oldterm) 03/17/19 Recorde d [...] Daily, # 90 tablet, 3 Refills, Maintenance, 06/27/19 13:55:00 EST, Tablet Start Date: 06/27/19 Status: Ordered fenofibrate 160 mg oral tablet 1 tablet = 160 mg, By Mouth, Daily in AM, # 90 tablet, 3 Refills, Maintenance, 09/05/18 16:16:30 EDT, Tablet Start Date: 09/05/18 Status: Ordered Fish Oil By Mouth, Daily, [...] 04/12/19 Status: Ordered omeprazole 20 mg oral delayed release tablet 1 tablet = 20 mg, By Mouth, Daily, # 90 tablet, 3 Refills, Maintenance, 06/27/19 13:55:00 EST, EC Tablet, [facility], 156, cm, 06/27/19 13:30:00 EST, Height, 117.7, kg, 08/22/18 15:00:00 EST, Dry Weight Start Date: 06/27/19 Status: Ordered oxybutynin 10 mg/24 hr oral [...] Active Nephrolithiasis(Confirmed) Active Breast cancer, right - 1997, Lumpectomy and radiation(Confirmed) Active Morbid obesity(Confirmed) Active Multiple pulmonary nodules - incidental finding stable, next CT December 2019(Confirmed) Active Diagnosis Diagnosis Type Effective Dates Health Status Cl inical Service Informant Chronic cough Discharge Diagnosis 06/27/19 GERD (gastroesophagea l reflux disease) Discharge Diagnosis 06/27/19 Vital Signs Most recent to oldest [Reference Range]: 1 Height 156.0 cm (06/27/19 1:30 PM) Weight 119.6 kg (06/27/19 1:30 PM) Oxygen Saturation [94-100 %] 96 % (06/27/19 1:30 PM) Pulse Rate [55-90 bpm] 91 bpm *H* (06/27/19 1:30 PM) Body Mass Index [18.5-24.99] 49.15 *>HHI* (06/27/19 1:30 PM) Blood Pressure [90-138/55-84 mm Hg] 126/ 70mm Hg (06/27/19 1:30 PM) Respiratory Rate [16-30 br/min] 16 br/mi n (06/27/19 1:30 PM) Temperature [96.8-100.4 DegF] 98.1 DegF (06/27/19 1:30 PM) Mode of Delivery (Oxygen) Room air (06/27/19 1:30 PM) Blood pressure sites Arm, left (06/27/19 1:30 PM) Temperature Route Oral (06/27/19 1:30 PM) Weight Obtained Via Standing scale (06/27/19 1:30 PM) Social History Social History Type Response Smoking Status Former smoker, quit more than 30 days ago; Total pack years: 5; Started at age: 18; Stopped at age: 23; entered on: 08/21/18 Sex
--- OUTSIDE RECORDS SUMMARY | 2024-04-14 23:40 | XMS_ITS | Continuity of Care Document ---
Author Organization [facility] Address [address] [place] [phone]- Care Team Providers Care City Engineer Name Role Phone Aditya Haley HU Primary Care Physician Encounter [facility] Date(s): 01/28/23 - 02/27/23 [facility] [address] [place] [phone]- [place] Allergies, Adverse Reactions, Alerts No Known Allergies Immunizations Given and Recorded Vaccine Date Status Refusal Reason pneumococcal 20-valent conjugate vaccine 1 01/17/23 Given [id number] 12y+ bivalent booster vax 2 04/27/22 Given influenza virus vaccine, inactivated 04/09/22 Carrillo rded influenza virus vaccine, inactivated 02/17/21 Carrillo rded influenza virus vaccine, inactivated 03/23/18 Carrillo rded influenza virus vaccine, inactivated 04/01/17 Carrillo rded influenza virus vaccine, inactivated 03/18/16 Carrillo rded SARS-CoV-2 mRNA ([id number]) vax 09/30/21 Recorded SARS-CoV-2 (COVID-19) mRNA BNT-162b2 [...] pneumococcal 13-valent vaccine 06/20/15 Recorded 1Result Comment: [id number] 2Result Comment: [id number] Medications 1 breast prosthesis and three bras [...] medication, # 90 capsule, 5 Refills, Maintenance, 12/16/22 12:25:00 EDT, Capsule, [id number], Partial fillupon patient request if the prescription is for a s... Start Date: 12/16/22 Stop Date: 06/14/23 Status: Ordered fenofibrate 160 mg oral tablet 1 tablet = 160 mg, By Mouth, Daily, # 90 tablet, 1 Refills, Maintenance, 01/27/23 16:11:00 EDT, Tablet, [facility]), 153, cm, 01/17/23 9:12:00 EDT, Height, 93.3, kg, 09/29/22 15:49:00 EDT, Dry Weight Start Date: 01/27/23 Stop Date: 07/26/23 Status: Ordered omeprazole 20 mg oral enteric coated capsule 1 capsule = 20 mg, By Mouth, Daily, PRN Dyspepsia, # 90 capsule, 0 Refills, Maintenance, 01/31/23 20:54:00 EDT, EC Capsule, [facility]), Partial fill upon patient request if the prescription is for a schedule II opioid d... Start Date: 01/31/23 Status: Ordered Problem List Condition Confirmation Course [...] Care Nurse Name: Haley Burgess NP Position: [facility] Associate Professional Member Role: PCP Address: Address: [address] [place] [phone]- Name: Poornima Martinez RN Position: S RN Member Role: Primary Care Nurse Name: Suhail Duckworth RN Position: [facility] RN Supv Member Role: Primary Care Nurse Name: Katina Samaniego Position: S RN Member Role: Primary Care Nurse Name: Felecia Hernandez RN Position: [facility] Onco RN Member Role: Primary Care Nurse Name: Verito Alonzo RN Position: S RN Member Role: Primary Care Nurse Name: Minh Bryant RN Position: S RN Member Role: Primary Care Nurse Care Team Related Persons Name: ZAINA ROBERSON Address: home [address] [place] [phone]
--- OUTSIDE RECORDS SUMMARY | 2024-04-14 23:40 | XMS_ITS | Continuity of Care Document ---
Author Organization [facility] [place] Sergo lt Address [address] [place] [address]- Care Team Providers Care Calculation Reviewer Name Role Phone Haley Burgess NP Primary Care Physician [phone] [place] [facility] [place](s): 04/27/22 - 05/04/22 [facility] Adult [address] [place] [address]- Encounter Diagnosis Hypertension(Discharge Diagnosis) - 04/27/22 Dyslipidemia(Discharge Diagnosis) - 04/27/22 Malignant neoplasm of tonsil(Discharge Diagnosis) - 04/27/22 Multiple pulmonary nodules(Discharge Diagnosis) - 04/27/22 Obese class II(Discharge Diagnosis) - 04/27/22 Chronic kidney disease (CKD) stage G3a/Ax(Discharge Diagnosis) - 04/27/22 Osteopenia of femoral neck(Discharge Diagnosis) - 04/27/22 Attending Physician: Haley Burgess NP Referring Physician: Elizabet SEGURA, Austin Lin Allergies, Adverse Reactions, Alerts No Known Allergies Immunizations Given and Recorded Vaccine Date Status Refusal Reason [id number] 12y+ bivalent booster vax 1 04/27/22 Given influenza virus vaccine, inactivated 04/09/22 Carrillo rded influenza virus vaccine, inactivated 02/17/21 Carrillo rded influenza virus vaccine, inactivated 03/23/18 Carrillo rded influenza virus vaccine, inactivated 04/01/17 Carrillo rded influenza virus vaccine, inactivated 03/18/16 Carrillo rded SARS-CoV-2 mRNA ([id number]) vax 09/30/21 Recorded SARS-CoV-2 (COVID-19) mRNA BNT-162b2 [...] Given Parent Or Guardian Refuses 1Result Comment: [id number] Medications acetaminophen 160 mg/5 mL oral liquid 20 mL = 640 mg, By Mouth, 3 times a day, PRN Pain , Mild, Check temperature before using, # 480 mL,2 Refills, Maintenance, 12/22/21 14:32:00 EDT, [facility] #[id number], Partial fill upon patient request if the prescription is for a sche... Start Date: 12/22/21 Status: Ordered lidocaine-prilocaine 2.5%-2.5% topical cream 1 application, Topically, Once, use 40 min before port access, # 30 Gm, 0 Refills, Soft Stop, 11/30/21 16:17:00 EDT, [facility] #[id number], Partial fill upon patient request if the prescription is for a schedule II opioid drug., 1 applica... Start Date: 11/30/21 Status: Ordered pilocarpine 5 mg oral tablet 1 - 1.5 tablets, By Mouth, 4 times a day, May cause sweating or dizziness so do not drive after first dose to ensure you tolerate it. Do not take more than 6 tablets (30 mg) in 24 hours, # 540 tablet, 1 Refills, Maintenance, 04/15/22 17:43:00 EDT, Tab... Start Date: 04/15/22 Status: Ordered Problem List Condition Confirmation Course [...] Active DNR (do not resuscitate) Confirmed Active Obese class II Confirmed Active Osteopenia of femoral neck Confirmed Active NSAID long-term use Confirmed Active Diagnosis Diagnosis Type Effective Dates Health Status Clinical Service Informant Hypertension Discharge Diagnosis 04/27/22 Dyslipidemia Discharge Diagnosis 04/27/22 Malignant neoplasm of tonsil Discharge Diagnosis 04/27/22 Multiple pulmonary nodules Discharge Diagnosis 04/27/22 Obese class II Discharge Diagnosis 04/27/22 Chronic kidney disease (CKD) stage G3a/Ax Discharge Diagnosis 04/27/22 Osteopenia of femoral neck Discharge Diagnosis 04/27/22 Vital Signs Most recent to oldest [Reference Range]: 1 2 Height 156 cm (04/27/22 9:54 AM) 156 cm (04/27/22 9:29 AM) Weight 94 kg (04/27/22 9:29 AM) Oxygen Saturation [94-100 %] 95 % (04/27/22 9:29 AM) Pulse Rate [55-90 bpm] 90 bpm (04/27/22 9:54 AM) 104 bpm *H* (04/27/22 9:29 AM) Body Mass Index [18.5-24.99 kg/m2] 38.63 kg/m2 *>HHI* (04/27/22 9:29 AM) Blood Pressure [90-138/55-84 mm Hg] 128/ 70mm Hg (04/27/22 9:29 AM) Mode of Delivery (Oxygen) Room air (04/27/22 9:29 AM) Blood pressure sites Arm, left (04/27/22 9:29 AM) Weight Obtained Via Standing scale (04/27/22 9:29 AM) Social History Social History Type Response Smoking Status Former smoker, quit more than 30 days ago; Tobacco use times per day: social smoker; Started at age: 18; Stopped at age: 23; entered on: 06/29/21 Sex Note * Aide Lopez: PERFORM, SIGN, VERIFY Event Display: Patient Education/Instruction Authored Date: [id number] [facility] *BMP So [place] Clinical Summary Name OBINNA RIOS Age 77 Years 1945 PCP Haley Burgess NP PCP Visit Date 04/27/2022 09:26:00 Additional Instructions: Scheduled Appointments?? Future Appointments ?*BMP??So[facility] [address],??[address] ?Phone:??--?Fax:??-- ?Appt. Date:??07/14/2022?10:10 AM ?Scheduled Provider:??Haley Burgess NP. Follow-Up Instructions ?? Diagnosis Malignant neoplasm of tonsil, unspecified; Hyperlipidemia, unspecified; Other nonspecific abnormal finding of lung field; Body mass index [BMI] 35.0-35.9, adult; Other specified disorders of bone density and structure, unspecified thigh; Chronic kidney disease, stage 3a; Essential (primary) hypertension Medications: Please continue your medications until treatment is completed or stopped by your provider. Discuss any questions related to medications with your provider. Medications to Continue with No Changes These medications were not printed or sent to your pharmacy Acetaminophen (acetaminophen 160 mg/5 mL oral liquid) 20 Milliliter Oral 3 times a day as needed Pain , Mild. Check temperature before using. Refills: 2. Next Dose: Lidocaine/Prilocaine Topical (lidocaine-prilocaine 2.5%-2.5% topical cream) 1 aminah Topically once. use 40 min before port access. Refills: 0. Next Dose: Pilocarpine (pilocarpine 5 mg oral tablet) 1 - 1.5 tablets Oral 4 times a day. May cause sweating or dizziness so do not drive after first dose to ensure you tolerate it. Do not take more than 6 tablets (30 mg) in 24 hours. Refills: 1. Next Dose: Allergy Info:?? NKA Medications Given This Visit Medication Dose Route [id number] 12y+ bivalent booster vax (NotesFirst-BioNTech COVID-19 (12y+) Bivalent Booster vacc) 0.3 mL Intramuscular Future Orders ?No future orders Vital Signs Height 156 cm Weight 94 kg BMI 38.63 kg/m2 Blood Pressure 128 mm Hg/70 mm Hg Temperature Pulse Rate 90 bpm Respiratory Rate 02 Sat Mode of Delivery 95 %/Room air You can now view a summary of your hospital visit from the comfort of your home through a free online portal called [employer]. [employer] is a website that allows you to securely view your medical information including discharge summary, medications and follow-up visits. ??You can alsosend a secure electronic message to your doctor???s office to request appointments, renew medications or just ask a question. You can enroll at [email or web address] or register during your next office visit. Disclaimer:?? The information provided is of a general nature and is intended to be used in conjunction with the recommendations and advice of your health care practitioner. ??Every effort has been made to ensure that the information provided is accurate and complete at the time it is provided to you however, as your needs change, or, as new ??information becomes available, different or additional instructions may be required. If you have questions, please consult with your primary care provider or pharmacist, as appropriate. ??This information is not intended to serve as substitution for assessment and evaluation by a qualified health care provider. If you do not have a primary care provider, you may find a [facility] provider by calling [facility] at [phone]. For information about the plan of care including goals and instructions for your diagnosis, please see the patient education orders section of this document. Patient Education Materials?? The content of this educational material or handout may have been modified, supplemented, or adapted from its original content and format to support your individualized medical care. Patient Care team information Care Team Personnel Name: Camille Mathew RN Position: S RN Member Role: Primary Care Nurse Name: Haley Burgess NP Position: [facility] Associate Professional Member Role: PCP Address: Address: [address] [place] [id number] Name: Suhail Duckworth RN Position: S RN [...] Related Persons Name: ZAINA ROBERSON Address: home [address] [place] [address]
--- OUTSIDE RECORDS SUMMARY | 2024-04-14 23:40 | XMS_ITS | Continuity of Care Document ---
Author Organization [facility] [place] Sergo lt Address [address] [place] [address]- Care Team Providers Care Supply Chain Director Name Role Phone Aditya PERIPHERAL EDP EQUIPMENT OPERATOR, Haley Brownlee Primary Care Physician Encounter [facility] Date(s): 01/17/23 - 02/16/23 [facility] Adult [address] [place] [address]- Attending Physician: Dena Burroughs Admitting Physician: AdmtrDena Referring Physician: Admtr, Dnea Allergies, Adverse Reactions, Alerts No Known Allergies Immunizations Given and Recorded Vaccine Date Status Refusal Reason pneumococcal 20-valent conjugate vaccine 1 01/17/23 Given [id number] 12y+ bivalent booster vax 2 04/27/22 Given influenza virus vaccine, inactivated 04/09/22 Carrillo rded influenza virus vaccine, inactivated 02/17/21 Carrillo rded influenza virus vaccine, inactivated 03/23/18 Carrillo rded influenza virus vaccine, inactivated 04/01/17 Carrillo rded influenza virus vaccine, inactivated 03/18/16 Carrillo rded SARS-CoV-2 mRNA ([id number]) vax 09/30/21 Recorded SARS-CoV-2 (COVID-19) mRNA BNT-162b2 vac 03/26/21 Recorded SARS-CoV-2 (COVID-19) mRNA BNT-162b2 vac 08/25/20 Given SARS-CoV-2 (COVID-19) mRNA BNT-162b2 vac 08/04/20 Given Influenza Virus Vaccine (oldterm) 03/19/20 Recorde d Influenza Virus Vaccine (oldterm) 03/17/19 Recorde d zoster vaccine, inactivated 08/05/18 Recorded zoster vaccine, inactivated 10/4/18 Recorded pneumococcal 23-valent vaccine 04/01/17 Recorded pneumococcal 23-valent vaccine 06/20/09 Recorded pneumococcal 13-valent vaccine 10/28/15 Recorded pneumococcal 13-valent vaccine 06/20/15 Recorded 1Result Comment: [id number] 2Result Comment: [id number] Medications 1 breast prosthesis and three bras [...] 01/27/23 16:11:00 EDT, Tablet, [facility] ([facility]), 153, cm, 01/17/23 9:12:00 EDT, Height, 93.3, kg, 09/29/22 15:49:00 EDT, Dry Weight Start Date: 01/27/23 Stop Date: 07/26/23 Status: Ordered omeprazole 20 mg oral enteric coated capsule 1 capsule = 20 mg, By Mouth, Daily, PRN Dyspepsia, # 90 capsule, 0 Refills, Maintenance, 01/31/23 20:54:00 EDT, EC Capsule, [facility] ([facility]), Partial fill upon patient request [...] at age: 23; entered on: 06/29/21 Sex Laboratory * Event Display: Non BH Lab Results Authored Date: * Event Display: Non BH Lab Results Authored Date: * Event Display: Non BH Lab Results Authored Date: Radiology * Event Display: IR Special Procedures, Non-BH Authored Date: * Event Display: IR Special Procedures, Non-BH Authored Date: Patient Care team information Care Team Personnel Name: Camille Mathew RN Position: S RN Member Role: Primary Care Nurse Name: Haley Burgess NP Position: [facility] Associate Professional Member Role: PCP Address: Address: [address] [place] [id number]- Name: Poornima Martinez RN Position: S RN Member Role: Primary Care Nurse Name: Suhail Duckworth RN Position: S RN Supv Member Role: Primary Care Nurse Name: Katina Samaniego Position: S RN Member Role: Primary Care Nurse Name: Felecia Hernandez RN Position: S Onco RN Member Role: Primary Care Nurse Name: Verito Alonzo RN Position: S RN Member Role: Primary Care Nurse Name: Minh Bryant RN Position: S RN Member Role: Primary Care Nurse Care Team Related Persons Name: DAZAINA RANDALL Address: home [address] [place] [address]
--- OUTSIDE RECORDS SUMMARY | 2024-04-14 23:40 | XMS_ITS | Continuity of Care Document ---
Author Organization [facility] Address [address] [place] [address]- Care Team Providers Care Collet Driller Name Role Phone Aditya Haley HU Primary Care Physician Encounter [facility] Date(s): 09/17/22 - 10/17/22 [facility] [address] [place] [id number]- Allergies, Adverse Reactions, Alerts No Known Allergies Immunizations Given and Recorded Vaccine Date Status Refusal Reason [id number] 12y+ bivalent booster vax 1 04/27/22 Given influenza virus vaccine, inactivated 04/09/22 Carrillo rded influenza virus vaccine, inactivated 02/17/21 Carrillo rded influenza virus vaccine, inactivated 03/23/18 Carrillo rded influenza virus vaccine, inactivated 04/01/17 Carrillo rded influenza virus vaccine, inactivated 03/18/16 Carrillo rded SARS-CoV-2 mRNA ([id number]) vax 09/30/21 Recorded SARS-CoV-2 (COVID-19) mRNA BNT-162b2 [...] Given Parent Or Guardian Refuses 1Result Comment: [id number] Medications acetaminophen 160 mg/5 mL oral liquid 20 mL = 640 mg, By Mouth, 3 times a day, PRN Pain , Mild, Check temperature before using, # 480 mL,2 Refills, Maintenance, 12/22/21 14:32:00 EDT, Liquid, [facility] #[id number], Partial fill upon patient request if the prescription is for a sche... Start Date: 12/22/21 Status: Ordered cevimeline 30 mg oral capsule 1 capsule = 30 mg, By Mouth, 3 times a day, Stop taking Pilocarpine when taking this medication, # 90 capsule, 5 Refills, Maintenance, 06/14/22 11:18:00 EST, Capsule, [id number], Partial fill upon patient request if the [...] 1 Refills, Maintenance, 07/16/22 11:49:00 EST, Tablet, [id number], 156, cm, 07/14/22 10:10:00 EST, Height, 91.5, [...] 0 Refills, Maintenance, 09/26/22 11:11:00 EDT, Tablet, [facility] #[id number], Partial fill upon patient request if [...] Team Personnel Name: Camille Mathew RN Position: [facility] RN Member Role: Primary Care Nurse Name: Haley Burgess NP Position: [facility] Associate Professional Member Role: PCP Address: Address: [address] [place] [id number] Name: Poornima Martinez RN Position: S RN Member Role: Primary Care Nurse Name: Suhail Duckworth RN Position: [facility] RN Supv Member Role: Primary Care Nurse Name: Holli Ramos RN Position: S RN Member Role: Primary Care Nurse Name: Katina Samaniego Position: S RN Member Role: Primary Care Nurse Name: Felecia Hernandez RN Position: [facility] Onco RN Member Role: Primary Care Nurse Name: Verito Alonzo RN Position: S RN Member Role: Primary Care Nurse Name: Minh Bryant RN Position: S RN Member Role: Primary Care Nurse Care Team Related Persons Name: ZAINA ROBERSON Address: [address] [place] [address]
--- OUTSIDE RECORDS SUMMARY | 2024-04-14 23:40 | XMS_ITS | Continuity of Care Document ---
Author Organization [facility] ter Address [address] [place] [id number]- Care Team Providers Care Outlet Manager Name Role Phone Aditya Haley HU Primary Care Physician [phone] Encounter [facility] Date(s): 09/29/22 - 10/02/[address] [address]- Encounter Diagnosis Inguinal hernia, right(Final) - 09/29/22 CKD (chronic kidney disease)(Final) - 09/29/22 Discharge Disposition: A-D/C Home Attending Physician: Deon Black MD Admitting Physician: Deon Black MD Referring Physician: Not on Staff, Referring MD Allergies, Adverse Reactions, Alerts No Known Allergies Immunizations Given and Recorded Vaccine Date Status Refusal Reason [id number] 12y+ bivalent booster vax 1 04/27/22 Given influenza virus vaccine, inactivated 04/09/22 Carrillo rded influenza virus vaccine, inactivated 02/17/21 Carrillo rded influenza virus vaccine, inactivated 03/23/18 Carrillo rded influenza virus vaccine, inactivated 04/01/17 Carrillo rded influenza virus vaccine, inactivated 03/18/16 Carrillo rded SARS-CoV-2 mRNA ([id number]) vax 09/30/21 Recorded SARS-CoV-2 (COVID-19) mRNA BNT-162b2 [...] Given Parent Or Guardian Refuses 1Result Comment: [id number] Medications acetaminophen 160 mg/5 mL oral liquid 20 mL = 640 mg, By Mouth, 3 times a day, PRN Pain , Mild, Check temperature before using, # 480 mL,2 Refills, Maintenance, 12/22/21 14:32:00 EDT, Liquid, [facility] #[id number], Partial fill upon patient request if the prescription is for a sche... Start Date: 12/22/21 Status: Ordered cevimeline 30 mg oral capsule 1 capsule = 30 mg, By Mouth, 3 times a day, Stop taking Pilocarpine when taking this medication, # 90 capsule, 5 Refills, Maintenance, 06/14/22 11:18:00 EST, Capsule, [facility] #[id number], Partial fill upon patient request if the [...] 1 Refills, Maintenance, 07/16/22 11:49:00 EST, Tablet, [facility] #[id number], 156, cm, 07/14/22 10:10:00 EST, Height, 91.5, [...] 0 Refills, Maintenance, 09/26/22 11:11:00 EDT, Tablet, [facility]/pharmacy #[id number], Partial fill upon patient request if the prescription is for a schedule II opioid drug., 156, cm, 09/16/22 14:53:00 EDT,... Start Date: 09/26/22 Status: Ordered oxyCODONE 5 mg oral capsule 1 capsule = 5 mg, By Mouth, Every 6 hours, PRN as needed for pain, # 10 capsule, 0 Refills, Acute 10/12/22 0:00:00 EDT, 10/02/22 14:11:00 EDT, Capsule, [facility], Partial fill upon patient request if the prescription is for a schedule I... Start Date: 10/02/22 Stop Date: 10/12/22 Status: Ordered Problem List Condition Confirmation Course [...] obesity (BMI 35.0-39.9) with comorbidity Confirmed Active Procedures Procedure Date Related Diagnosis Body Site Status Femoral hernia repair Com pleted Laparoscopic resection of small intestine Completed Laparoscopy Completed Vital Signs Most recent to oldest [Reference Range]: 1 2 3 Height 155 cm (09/29/22 3:49 PM) Weight 93.3 kg (09/29/22 3:49 PM) Oxygen Saturation [94-100 %] 93 % *L* (10/02/22 11:59 AM) 96 % (10/02/22 8:15 AM) 98 % (10/02/22 6:00 AM) Pulse Rate [55-90 bpm] 76 bpm (10/02/22 6:00 AM) 77 bpm (10/02/22 4:00 AM) 84 bpm (10/02/22 2:00 AM) Body Mass Index [18.5-24.99 kg/m2] 38.83 kg/m2 *>HHI* (09/29/22 3:49 PM) Blood Pressure [90-138/55-84 mm Hg] 124/68mm Hg (10/02/22 11:59 AM) 126/66mm Hg (10/02/22 8:15 AM) 122/71mm Hg (10/02/22 6:00 AM) Respiratory Rate [16-30 br/min] 25 br/min (10/02/22 11:59 AM) 18 br/min (10/02/22 8:15 AM) 15 br/min *L* (10/02/22 6:00 AM) Temperature [96.8-100.4 DegF] 97.7 DegF (10/02/22 11:59 AM) 97.8 DegF (10/02/22 6:00 AM) 97.8 DegF (10/02/22 2:00 AM) Liters per Minute 2 L/min (10/01/22 6:00 AM) 2 L/min (10/01/22 4:00 AM) 2 L/min (10/01/22 2:00 AM) Mode of Delivery (Oxygen) Room air (10/02/22 11:59 AM) Room air (10/02/22 8:15 AM) Room air (10/02/22 6:00 AM) Blood pressure sites Arm, left (10/02/22 11:59 AM) Arm, left (10/02/22 8:15 AM) Arm, left (10/02/22 6:00 AM) Temperature Route Oral (10/02/22 11:59 AM) Oral (10/02/22 6:00 AM) Oral (10/02/22 2:00 AM) Dry Weight 93.3 kg (09/29/22 3:49 PM) Social History Social History Type Response Smoking Status Former smoker, quit more than 30 days ago; Tobacco use times per day: social smoker; Started at age: 18; Stopped at age: 23; entered on: 06/29/21 Sex Note * Tala Ding RN: PERFORM Event Display: Discharge/Transfer Note Hospital Authored Date: [id number] Nursing Discharge Note Entered On: 10/02/2022 15:29 EDT Performed On: 10/02/2022 15:28 EDT by Tala Ding RN Nursing Discharge Note 2 Discharge Time : 10/02/2022 14:55 EDT Discharge Level of Care at Discharge : Homehealth/VNA Patient Left Unit Via : Wheelchair Patient Accompanied Off Unit with : Responsible adult DC Instructions Provided & Signed by Pt : Yes Patient Understands D/C Instructions : Yes Patient Instructions Discharge Signed : Yes Discharge Comments : all d/c instructions reviewed with patient including s/s of infection at incision sites & home health services. all questions answered Did Pt have Specialty Bed or Wound Vac : No Tala Ding RN - 10/02/2022 15:28 EDT * Martha Garcia DO: PERFORM, MODIFY, MODIFY, MODIFY Event Display: Discharge/Transfer Note Hospital Authored Date: [id number] Patient: ??JENNIFER RIOS ? Age:??77 Years?Sex:??Female?:??1945?? Patient Information Discharge Location: [facility] Primary Care Physician: Haley Burgess NP Admit Date/Time: 09/29/22 04:42 Discharge Disposition Discharge Disposition: Home with Home Health Discharge Diagnosis CKD (chronic kidney disease) (N18.9) Femoral hernia of right side with gangrene and obstruction (K41.40) Inguinal hernia, right (K40.90) ?? _ Discharge Medications Acetaminophen (acetaminophen 160 mg/5 mL oral liquid)?20?Milliliter?640?Milligram?ByMouth?3 times a day?as needed?Pain , Mild?Check temperature before using Cevimeline (cevimeline 30 mg oral capsule)?1?capsule?30?Milligram?By Mouth?3 times a day?for 30?Days?Stop taking Pilocarpine when taking this medication Cevimeline (cevimeline 30 mg oral capsule)?1?capsule?30?Milligram?By Mouth?3 times a day Fenofibrate (fenofibrate 160 mg oral tablet)?1?tab(s)?160?Milligram?By Mouth?Daily?for 90?Days Omeprazole (omeprazole 20 mg oral enteric coated capsule)?1?capsule?20?Milligram?By Mouth?Daily?as needed?Dyspepsia Ondansetron (ondansetron 4 mg oral tablet)?1?tab(s)?4?Milligram?By Mouth?Every 8 hours Oxycodone (oxyCODONE 5 mg oral tablet)?5?Milligram?1?tablet?By Mouth?Every 4 hours?as needed?Pain , Severe ? Medications Started Oxycodone (oxyCODONE 5 mg oral tablet)?5?Milligram?1?tablet?By Mouth?Every 4 hours?as needed?Pain , Severe Allergies Allergies ?(Active and Proposed Allergies Only) NKA? (Severity: Unknown severity, Onset: Unknown) ? Future Appointments Tuesday. 2022 10:30 AM EDT ?? Where: Interventional Radiology Hospital Course Jennifer Rios is a 77-year-old woman with multiple medical comorbidities, who presented to [facility] as a transfer from [place] with a 3-day history of lower abdominal discomfort, nausea, and vomiting. ??Work-up at [place] was consistent with a small bowel obstruction secondary to an incarcerated vs strangulated right inguinal hernia. ??Upon [facility] arrival, patient was afebrile, hemodynamically normal andsatting at 100% on room air. ??Laboratory noted mild leukocytosis 14.[address] scan obtained at [facility] was reviewed and showed evidence of multiple dilated loops of small bowel with air-fluid levels, and a right inguinal hernia containing thick walled small bowel loops measuring up to 3.2 cm with fat stranding, no evidence of free air. ??On exam, she was tender to palpation to right lower quadrant, there is a notable right inguinal bulge and palpable mass consistent with the noted small loops of bowel on CT scan. ??Unable to fully reduce the hernia at bedside. Pt was taken to the OR and underwent femoral hernia of right side with gangrene and obstruction. ??She had a laparoscopic small bowel resection, with primary anastomosis. Post op without complications. ??Advance to clear liquid diet and tolerating without issues. ??Has been out of bed. At this time, pt is stable for discharge as she is doing well this morning. Objective Physical Exam ?? Patient is: in no acute distress. ? Cardiac: RRR. ? Respiratory: CTA. ? Abdomen: Abdomen is (soft, non-tender, non-distended, mild tenderness of the incision site, no abdominal tenderness. ??Bandage removed with intact Steri- Strips. ??No bleeding or drainage from the incision sites. ??Interdry replaced in the right lower quadrant). ? Extremities: no calf tenderness.? Surgical Procedures Repair Hernia Inguinal Open Procedure Date: 09/29/2022.?? Preoperative Diagnosis: Inguinal hernia, right.?? Postoperative Diagnosis: Femoral hernia of right side with gangrene and obstruction.?? Procedure Performed: ?? Femoral hernia repair (8109337074). Laparoscopic resection of small intestine ([id number]). Laparoscopy ([id number])..?? Surgeon: Michelle SEGURA, Dariana Lin.?? Assistants: Sabi Goldman MD.?? Anesthesia Type: General.? 09/29/2022 08:15 Follow-Up Appointments Added Follow Up ?Time Frame ?Comments Michelle SEGURA, Dariana Lin?2 ?? Weeks Aditya HU, Hlaey Brownlee Patient Instructions Please follow up with the general surgery clinic in 2 weeks. Post Discharge Care Nursing will be visiting you regarding wound care and physical therapy. Home Health Face to Face *Denotes mandatory gambino ?? *I certify that this patient is under my care and that I or an allowed non- physician working with me had a face to face encounter with the patient on this date:??10/02/2022 12:34 ?? *The encounter with the patient was in whole, or in part, for the following medical condition, which is the primary diagnosis(es) for home health care:??CKD (chronic kidney disease) (N18.9) Femoral hernia of right side with gangrene and obstruction (K41.40) Inguinal hernia, right (K40.90) ? *Select the indications for the discipline/s that are being arranged for this patient. Nursing (select all that apply): [_] None [_] Medication management (reconciliation, teaching)?? [x] Chronic disease management?? [x] Wound care and treatment?? [_] Home safety evaluation [_] Administer SQ/IM/IV medications?? [_] Cath care?? [_] Drain care?? [_] Trach or GT care [x] Gait training [x] Transfer training [x] Therapeutic exercise [x] Functional Activities [x] Balance training? Other: For wound care, right groin DSD and ensure that wound is dry. Occupation Therapy (select all that apply): [_] None [x] ADL Management [x] Fall prevention training [x] Energy conservation [_] Cognitive training Other _ Physical Therapy (select all that apply): [_] None [x] Functional mobility training [x] Home exercise program to strengthen [x] Increase ROM?? [x] Falls prevention training [_] Home maintenance program for chronic disease Other _ Speech Therapy (select all that apply): [_] None [_] Swallow evaluation and training [_] Speech and language training [_] Cognitive training to process, organize, and/or recall information Other _ ? *Homebound due to (select all that apply): [x] Inability to leave home without assistance/supervision [_] Inability to ambulate without assistance [x] Pain [x] Decreased strength and endurance [_] Unsteady gait [_] Severe SOB and fatigue [_] Impaired transfers [_] Inability to negotiate stairs [_] Limited weight bearing [_] Mental status change? *Physician Signature:??Martha Garcia, DO ?? *By signing this, I certify that I have personally evaluated the patient and agree with the findings and recommendations as documented above. ?? Results Discharge Labs BLOOD COUNT & DIFF WBC 5.3 k/mm3 ()?? 10/02/2022 02:22 RBC 3.47 m/mm3 (Low)?? 10/02/2022 02:22 Hgb 10.2 Gm/dL (Low)?? 10/02/2022 02:22 Hct 31.6 % (Low)?? 10/02/2022 02:22 MCV 91.1 femtoliters ()?? 10/02/2022 02:22 MCH 29.4 pg ()?? 10/02/2022 02:22 MCHC 32.3 g/dL (Low)?? 10/02/2022 02:22 Platelet Count 174 k/mm3 ()?? 10/02/2022 02:22 RDW-SD 47.8 femtoliters (High)?? 10/02/2022 02:22 MPV 11.3 femtoliters ()?? 10/02/2022 02:22 Nucleated RBC (Automated) 0.0 #/100 WBC'S ()?? 10/02/2022 02:22 Abs. NRBC 0.0 k/mm3 ()?? 10/02/2022 02:22 Abs. Neut 3.6 k/mm3 ()?? 10/02/2022 02:22 Abs. Lymph 0.7 k/mm3 (Low)?? 10/02/2022 02:22 Abs. [place] 0.6 k/mm3 ()?? 10/02/2022 02:22 Abs. Eo 0.2 k/mm3 ()?? 10/02/2022 02:22 Abs. Baso 0.0 k/mm3 ()?? 10/02/2022 02:22 Neut % 68.4 % ()?? 10/02/2022 02:22 Lymph % 13.3 % (Low)?? 10/02/2022 02:22 [place] % 11.8 % (High)?? 10/02/2022 02:22 Eos % 4.4 % ()?? 10/02/2022 02:22 Baso % 0.8 % ()?? 10/02/2022 02:22 Imm Gran 1.3 % ()?? 10/02/2022 02:22 Abs. Imm Gran 0.1 k/mm3 ()?? 10/02/2022 02:22 ?? CHEM GENERAL Sodium 139 mmol/L ()?? 10/02/2022 02:22 Potassium 4.0 mmol/L ()?? 10/02/2022 02:22 Chloride 103 mmol/L ()?? 10/02/2022 02:22 Bicarbonate Level 27 mmol/L ()?? 10/02/2022 02:22 Anion Gap 9 ()?? 10/02/2022 02:22 Glucose Level 81 mg/dL ()?? 10/02/2022 02:22 Glucose, POC 80 mg/dL ()?? 09/30/2022 07:16 BUN 8 mg/dL ()?? 10/02/2022 02:22 Creatinine-Blood 0.7 mg/dL ()?? 10/02/2022 02:22 Estimated GFR Creatinine 89 ML/MIN/1.73 M2 ()?? 10/02/2022 02:22 Calcium 9.1 mg/dL ()?? 09/29/2022 04:13 Calcium, Ionized pH Corrected 1.25 mmol/L ()?? 10/02/2022 02:22 Phosphorus 2.6 mg/dL ()?? 10/02/2022 02:22 Magnesium 1.5 mg/dL (Low)?? 10/02/2022 02:22 Protein, Total 6.4 Gm/dL ()?? 09/29/2022 04:13 Albumin 4.0 Gm/dL ()?? 09/29/2022 04:13 AG Ratio 1.7 ()?? 09/29/2022 04:13 Alkaline Phosphatase 57 units/L ()?? 09/29/2022 04:13 AST (SGOT) 21 units/L ()?? 09/29/2022 04:13 ALT (SGPT) 11 units/L ()?? 09/29/2022 04:13 Bilirubin, Total 0.6 mg/dL ()?? 09/29/2022 04:13 Lactate 0.8 mmol/L ()?? 09/29/2022 04:13 ?? VIROLOGY COVID-19 PCR Specimen Source NASAL ()?? 09/29/2022 06:42 COVID-19 PCR Result NEGATIVE ()?? 09/29/2022 06:42 ?? This patient was seen and discussed with Dr. Cortes 30??minutes spent on discharge * Martha Garcia DO: PERFORM Event Display: Discharge/Transfer Note Hospital Authored Date: [id number] The general surgery??follow up appointment can be made at the phone number [phone]. * Martha Garcia DO: PERFORM Event Display: Discharge/Transfer Note Hospital Authored Date: [id number] Pt refusing PT services; pt understands that it is the recommendation from the PT evaluation but states that she and her daughter will be able to manage it at home on their own. * Timur CASTANEDA, Tala: PERFORM Event Display: Patient Education/Instruction Authored Date: [id number] Inpatient Adult Discharge Instructions [address] [address] Name: JENNIFER RIOS : 1945 Visit: 09/29/2022 04:42:00 Current Date: 10/02/2022 14:14 Account: [id number] Inpatient Adult Discharge Instructions We would like to thank you for allowing us to assist you with your healthcare needs. The following includes patient education materials and information regarding your injury/illness. Our entire staffstrives to provide an excellent experience for our patients and their families. PLEASE ENSURE YOU FOLLOW-UP PER THE INSTRUCTIONS BELOW! ?? YOUR OPINION IS IMPORTANT TO US! Please complete the survey you may receive by mail or email. Your feedback will be used to make improvements to the healthcare experiences of our patients and their families. Surveys are administered by [employer] ?? If further treatment with your primary care physician or another doctor is recommended, it is important for you to keep the appointment. Call your primary care physician or return to the Emergency Department immediately if your condition worsens, fails to improve, or new symptoms develop. If you need to find a doctor, you can call [facility] [employer] for a referral at [phone] or toll free at [phone] ([phone]) or log in to [email or web address] ?? You can view and manage your care through the patient portal or by using a health care aminah of your choosing. [employer] is a website that allows you to securely view your medical information including your hospital discharge summary, office visit summaries, medications and follow-up visits. You can also request appointments, renew medications, and request access to your medical information using a health care aminah of your choosing, or just ask a question. You can enroll at [email or web address] or register during your next office visit. You have been discharged from [facility], Patient Care Unit: SW5. If you have any questions regarding these instructions after you leave, please call us and we will be happy to assist you. [facility] Your Care Team Attending Physician Wayne SEGURA, Deon Consulting Providers Michelle SEGURA, Dariana Lin Discharging Providers Martha Garcia DO Reason for Your Visit hernia Your Diagnosis Abdominal pain CKD (chronic kidney disease) Femoral hernia of right side with gangrene and obstruction Inguinal hernia, right Tests Performed Below is a partial list of the tests performed during your hospitalization. You may have had other tests and procedures not included in this list. Please discuss all test results with your provider. BUN CBC w/ Differential Comprehensive Metabolic Panel COVID-19 (2019 Novel Coronavirus) PCR Creatinine Electrolytes Glucose Level GLUCOSE POC Ionized Calcium Lactate Level Magnesium Level Phosphorus Level Primary Care Provider Haley Burgess NP Advance Directive . Discharge Vitals Temperature: 97.7 DegF Height: 155 cm Pulse Rate: 76 bpm Weight: 93.3 kg Respiratory Rate: 25 br/min Body Mass Index:??38.83 kg/m2??Critical Systolic Blood Pressure: 124 mm Hg Body surface area: 2 Diastolic Blood Pressure: 68 mm Hg ?? Oxygen Saturation:??93 %??Low ?? Studies Pending All tests and labs ordered during this hospital stay have been completed unless listed below. Please discuss all pending results with your provider listed above in these instructions. ?? BUN CBC w/ Differential Creatinine Electrolytes Glucose Level Ionized Calcium Magnesium Level Pathology Tissue Request () Phosphorus Level What to do next Instructions From Your Doctor Discharge Orders Scheduled Follow-Up Appointments Tuesday. 2022 10:30 AM EDT ?? Where: Interventional Radiology You Need to Schedule the Following Appointments Follow Up with??Michelle SEGURA, Dariana Lin When??In 2 weeks Where: ?? [phone] Follow Up with??Aditya HU, Haley Brownlee When?? Where: ?? Discharge Medications JENNIFER RIOS :1945 Visit Date:09/29/2022 Medications: Please continue your medications until treatment is completed or stopped by your provider. Medications not listed below should be discontinued. Discuss any questions related to medications with your provider. What How Much When Instructions Next Dose New Oxycodone (oxyCODONE 5 mg oral capsule) 1 capsule Oral Every 6 hours as needed for as needed for pain Pickup at [facility] 3 can take now then every 6 hours as needed Unchanged Acetaminophen (acetaminophen 160 mg/ 5 mL oral liquid) 20 Milliliter Oral 3 times a day as needed for Pain , Mild Check temperature before using ?? can take now then as needed Unchanged Cevimeline (cevimeline 30 mg oral capsule) 1 capsule Oral 3 times a day Duration: 30 Days Stop taking Pilocarpine when taking this medication ?? 10/02 3pm Unchanged Fenofibrate (fenofibrate 160 mg oral tablet) 1 tab(s) Oral Daily Duration: 90 Days 10/03 9am Unchanged Omeprazole (omeprazole 20 mg oral enteric coated capsule) 1 capsule Oral Daily as needed for Dyspepsia as needed Unchanged Ondansetron (ondansetron 4 mg oral tablet) 1 tab(s) Oral Every 8 hours as needed Pharmacy Information [facility] 3: [address], [place] [id number] [phone] Test Results Below is a partial list of the most recent Laboratory test results done prior to this discharge. You may have had other tests and procedures not included in this list. Please discuss all test resultswith your provider. BUN (10/02/2022) ???BUN - 8 mg/dL CBC w/ Differential (10/02/2022) ???WBC - 5.3 k/mm3???RBC - 3.47 m/mm3???Hgb - 10.2 Gm/dL???Hct - 31.6 %???MCV - 91.1 femtoliters???MCH - 29.4 pg???MCHC - 32.3 g/dL???Platelet Count - 174 k/mm3???RDW-SD - 47.8 femtoliters???MPV - 11.3 femtoliters???Nucleated RBC (Automated) - 0.0 #/100 WBC'S???Abs. NRBC - 0.0 k/mm3???Abs. Neut - 3.6 k/mm3???Abs. Lymph - 0.7 k/mm3???Abs. [place] - 0.6 k/mm3???Abs. Eo - 0.2 k/mm3???Abs. Baso - 0.0 k/mm3???Neut % - 68.4 %???Lymph % - 13.3 %???[place] % - 11.8 %???Eos % - 4.4 %???Baso % - 0.8 %???Imm Gran - 1.3 %???Abs. Imm Gran - 0.1 k/mm3 Comprehensive Metabolic Panel (09/29/2022) ???Sodium - 136 mmol/L???Potassium - 4.1 mmol/L???Chloride - 101 mmol/L???Bicarbonate Level - 23 mmol/L???Anion Gap - 12???Glucose Level - 99 mg/dL???BUN - 34 mg/dL???Creatinine-Blood - 1.3 mg/dL???Estimated GFR Creatinine - 43 ML/MIN/1.73 M2???Calcium - 9.1 mg/dL???Protein, Total - 6.4 Gm/dL???Albu min - 4.0 Gm/dL???AG Ratio - 1.7???Alkaline Phosphatase - 57 units/L???AST (SGOT) - 21 units/L???ALT (SGPT) - 11 units/L???Bilirubin, Total - 0.6 mg/dL COVID-19 (2019 Novel Coronavirus) PCR (09/29/2022) ???COVID-19 PCR Specimen Source - NASAL???COVID-19 PCR Result - NEGATIVE Creatinine (10/02/2022) ???Creatinine-Blood - 0.7 mg/dL???Estimated GFR Creatinine - 89 ML/MIN/1.73 M2 Electrolytes (10/02/2022) ???Sodium - 139 mmol/L???Potassium - 4.0 mmol/L???Chloride - 103 mmol/L???Bicarbonate Level - 27 mmol/L???Anion Gap - 9 Glucose Level (10/02/2022) ???Glucose Level - 81 mg/dL GLUCOSE POC (09/30/2022) ???Glucose, POC - 80 mg/dL Ionized Calcium (10/02/2022) ???Calcium, Ionized pH Corrected - 1.25 mmol/L Lactate Level (09/29/2022) ???Lactate - 0.8 mmol/L Magnesium Level (10/02/2022) ???Magnesium - 1.5 mg/dL Phosphorus Level (10/02/2022) ???Phosphorus - 2.6 mg/dL Allergies (NKA means No Known Allergies) NKA Problems Active Problems??(14) Allergic rhinitis?? Bochdalek hernia?? Chronic kidney disease (CKD) stage G3a/Ax?? Degenerative lumbar disc?? DNR (do not resuscitate)?? Dyslipidemia?? GERD (gastroesophageal reflux disease)?? History of breast cancer (right breast) 1997 S/P umpectomy and radiation?? Malignant neoplasm of tonsil?? Multiple pulmonary nodules?? Nephrolithiasis?? OAB (overactive bladder)?? Osteopenia of femoral neck?? Severe obesity (BMI 35.0-39.9) with comorbidity?? Education Materials Below is the list of Educational Leaflet Providered with your Discharge Instructions. Valuables and Belongings I fully understand and agree that [facility] accepts no responsibility for all my personal property including clothing, toilet articles, radios, jewelry, dentures, hearing aids, rings, money, or any other property that is in my possession or is brought to me after admission. I understand certain valuables may be placed in a hospital safe for a short period of time. I understand that the hospital is not liable for loss or damage due to accident, fire, or other natural occurrence while said property is in the safe. I accept full responsibility for any personal property that I keep with me, and will not hold the hospital responsible in case of loss or disappearance. I acknowledge that i have been encouraged to send valuables and belongings home. ?? Review of Valuable and Belonging List: With patient Date for Pt to Sign Valuables/Belongings: 09/29/22 18:29:00 ?? Other Discharge Information ? Pulmonary Rehab Status?? Pulmonary Rehab Discharge Status?? Respiratory Rate: 25 br/min ? Common Emergency Awareness Tips IS IT A STROKE? Act FAST and Check for these signs: FACE Does the face look uneven? ARM Does one arm drift down? SPEECH Does their speech sound strange? TIME Call at any sign of stroke ?? Heart Attack Signs Chest discomfort: Most heart attacks involve discomfort in the center of the chest and lasts more than a few minutes, or goes away and comes back. It can feel like uncomfortable pressure, squeezing, fullness or pain. Discomfort in upper body: Symptoms can include pain or discomfort in one or both arms, back, neck, jaw or stomach. Shortness of breath: With or without discomfort. Other signs: Breaking out in a cold sweat, nausea, or lightheaded. Remember, MINUTES DO MATTER. If you experience any of these heart attack warning signs, call to get immediate medical attention! ?? Smoking can increase your chances of developing chronic health problems and can cause harmful effects to other family members in your house. If you smoke, you are strongly encouraged to quit. Please call [facility] Link at [phone] or [phone] ([phone]) or log in to [email or web address] for referrals to smoking cessation programs. ?? 988 Suicide & Crisis Lifeline is available 10/01 if you or someone you know needs to find a reason to keep living. By calling 988 you'll be connected to a skilled, trained counselor at a crisis center in your area. INPATIENT DISCHARGE INSTRUCTIONS SIGNATURE PAGE JENNIFER RIOS Location:[facility] Registration Date and Time:09/29/2022 04:42 EDT Primary Care Physician: Haley Burgess NP, I GABRIELJENNIFER CLAUDIO, have received the above patient education materials/instructions and have verbalized understanding. If ambulance or transport services are being used I further acknowledge being given a choice of service. ?? If you need to contact me, please call me at this number: . Patient/Supervisor Sunglasses Name: Patient/Supervisor Sunglasses Signature: Relationship to Patient: Witness Name/Signature: Date: * Event Display: Cardiac Rhythm Strips Authored Date: EKG study * Event Display: EKG Authored Date: Hospital Progress note * Tala Ding RN: PERFORM, SIGN, VERIFY, SIGN, MODIFY Event Display: Progress Note Hospital Authored Date: [id number] Patient: JENNIFER RIOS Age: 77 years Sex: Female : 1945 Associated Diagnoses: None Author: Tala Ding RN Findings Problem Related to Alteration in Gastrointestinal : Alteration in Gastrointestinal Func/new 10/02/2022 10:00 EDT Alteration in GI status Related to Abdominal Surgery Goals & Outcomes, Gastrointestinal Establish a regular pattern of elimination for pt, Nutritional intake is adequate for metabolic needs, Pt will achieve normal/improved fluid balance, Pt will have a bowel movement prior to discharge, Pt will maintain adequate GI function appropriate for pt, Ptwill maintain normal elimination patterns, Pt will resume/maintain adequate hemodynamic status, Pt will tolerate age appropriate diet prior to discharge, Pt will not experience s/s of infection priorto discharge Interventions, Gastrointestinal Assess/monitor abdomen for distention, tenderness, Assess/monitor abdominal girth & bowel function, Assess/monitor bowel pattern, bowel sounds, flatus, Assess/monitor number of bowel movements, Assess/monitor color, quantity, quality, consistency of stoo, Assess/monitor pt for nausea, vomiting, Assess/monitor effects of re-hydration, Assess/monitor intake &output, Assess if pt tolerating diet, DVT prophylaxis as ordered, Elevate HOB to facilitate lung expansion, prevent aspiration, Taking PO: Encourage/monitor intake & swallowing ability, Teach Pt/caregiver diet & give copy of dietary instructions, Teach Pt/caregiver on bowel elimination inter ventions, Teach Pt/caregiver re: importance of bowel regime, Teach Pt/caregiver re: nutritional intake & dietary restrict, Teach/encourage deep breath & cough exercises, Teach/encourage use of incentive spirometer Goals/Interventions, Gastrointestinal Yes Gastrointestinal, Problem Start 09/29/2022 15:00 Reviewed plan with, Gastrointestinal Patient Patient Progression, Gastrointestinal Pt progressing according to plan . Narrative/Incidental Patient is a+ox4. WALTER. NSR 90s on monitor. +peripheral pulses with trace ankle edema. denies any chest pain, sob, dizziness, or nausea. Lung sounds clear. on room air sating > 93%. Abdomen is round soft and appropriately/midly tender to incision sites. pt endorses a mild soreness with adequate pain control. +flatus having loose stools today however pt reports they are more formed than previous days. denies any nausea. Voiding CYU by ambulating within the room with walker and steady gait. patient sitting OOB to chair for all of shift. Surgical sites to abdomen CDI with steri strips. Right groin incision CDI with steri strips as wll, interdry placed in skin fold per MD request. Patient currently pending discharge. call scales within reach. . 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 She had a laparoscopic small bowel resection, with primary anastomosis. near baseline. Will follow for further PT. Anticipate home w services. Walker: distance 20-50 Distance pt will ambulate >100' Full chart review completed Yes Hospital course Per CIS Other findings low complexity 2/2 PMH and reason for hospitalization Plan of care PT Gait training, Transfer training, Therapeutic exercise, Functional Activities, Balance training * Tala Ding RN: PERFORM Event Display: Progress Note Hospital Authored Date: Patient informed of recommendation for physical therapy & wound care services at home. Patient refuses PT at this time. She understands the risks and benefits of having such care provided at homeand that it was recommended per inpatient PT. reports she has help from her daughter who lives withher and already owns a walker if she needs. Nursing services set up with [facility] for wound management. ACS team made aware. * Barbara Yancey RN: SIGN, VERIFY, PERFORM Event Display: Progress Note Hospital Authored Date: Patient: JENNIFER RIOS Age: 77 years Sex: Female : 1945 Associated Diagnoses: None Author: Barbara Yancey RN Findings Problem Related to Alteration in Comfort : Alteration in Comfort/new 10/01/2022 20:00 EDT Alteration in Comfort Related to Surgery Goals & Outcomes: Comfort Pt will report acceptable level of comfort & pain control, Pt will state importance of adhering to pain strategy regime, Pt will demonstrate necessary skills to manage pain, Non-verbal indicators will indicate comfort/pain control Interventions Implemented: Comfort Assess pain using appropriate pain scale/tools, Assess aggravating factors & prevent them accordingly, Assess alleviating factors & promote them accordingly Goals/Interventions, Comfort Yes Comfort, Problem Start 09/29/2022 22:30 Reviewed plan with, Comfort Patient Patient Progression, Comfort Pt progressing according to plan Comfort, Problem Ongoing Yes . Alteration in Gastrointestinal : Alteration in Gastrointestinal Func/new 10/01/2022 20:00 EDT Alteration in GI status Related to Abdominal Surgery Goals & Outcomes, Gastrointestinal Establish a regular pattern of elimination for pt, Nutritional intake is adequate for metabolic needs, Pt will achieve normal/improved fluid balance, Pt will have a bowel movement prior to discharge, Pt will maintain adequate GI function appropriate for pt, Ptwill maintain normal elimination patterns, Pt will resume/maintain adequate hemodynamic status, Pt will tolerate age appropriate diet prior to discharge, Pt will not experience s/s of infection priorto discharge Interventions, Gastrointestinal Assess/monitor abdomen for distention, tenderness, Assess/monitor abdominal girth & bowel function, Assess/monitor bowel pattern, bowel sounds, flatus, Assess/monitor number of bowel movements, Assess/monitor color, quantity, quality, consistency of stoo, Assess/monitor pt for nausea, vomiting, Assess if pt tolerating diet, Teach/encourage deep breath & cough exercises, Teach/encourage use of incentive spirometer, Monitor & document reponse to anti-diarrhea meds Goals/Interventions, Gastrointestinal Yes Gastrointestinal, Problem Start 09/29/2022 15:00 Reviewed plan with, Gastrointestinal Patient Patient Progression, Gastrointestinal Pt progressing according to plan . Nursing Data Cardiac Data. : Cardiac Data. 10/01/2022 21:00 EDT Nail Bed Color, Fingers [place] Nail Bed Color, Toes [place] Skin Temperature Upper Extremities Warm Skin Temperature Lower Extremities Warm Heart Rhythm Regular Cardiac Rhythm Normal sinus rhythm Dorsalis Pedis Pulse, Left Normal Dorsalis Pedis Pulse, Right Normal teletypesetter monitor Yes Cardiovascular WNL except . Gastrointestinal Data. : Gastrointestinal Data. 10/01/2022 21:00 EDT Gastrointestinal Symptoms Diarrhea Abdomen Soft, Tender LLQ Tenderness At rest, To palpation LUQ Tenderness At rest, To palpation RLQ Tenderness At rest, To palpation RUQ Tenderness At rest, To palpation Bowel Sounds LUQ Present Bowel Sounds RUQ Present Bowel Sounds LLQ Present Bowel Sounds RLQ Present GI WNL except . Narrative/Incidental Patient remains in C, tele: NSR. Patient alert and oriented x4. Lung sounds clear, spo2 mid 90's at room air. Tend to desat to mid 80's while asleep but goes right back up. No s/s of resp distress or c/o's of SOB. ENcouraged IS use. Abdomen soft, tender ashley low quad, +BS. No N/V. Tolerating cardiac diet. Moderate pain, good effect with oxycodone. OOB with assist to bahtroon to void and opted tohave purewick later in the night. No LE edema, +PP. Call scales within reach. See CIS.. * Katina Samaniego: VERIFY, SIGN, MODIFY, PERFORM, SIGN Event Display: Progress Note Hospital Authored Date: [id number] Patient: JENNIFER RIOS Age: 77 years Sex: Female : 1945 Associated Diagnoses: None Author: Katina Samaniego Findings Problem Related to Alteration in Comfort : Alteration in Comfort/new 10/01/2022 8:00 EDT Alteration in Comfort Related to Surgery Goals & Outcomes: Comfort Pt will report acceptable level of comfort & pain control, Pt will state importance of adhering to pain strategy regime, Pt will demonstrate necessary skills to manage pain, Non-verbal indicators will indicate comfort/pain control Interventions Implemented: Comfort Assess pain using appropriate pain scale/tools, Assess aggravating factors & prevent them accordingly, Assess alleviating factors & promote them accordingly Goals/Interventions, Comfort Yes Comfort, Problem Start 09/29/2022 22:30 Reviewed plan with, Comfort Patient Patient Progression, Comfort Pt progressing according to plan Comfort, Problem Ongoing Yes . Alteration in Gastrointestinal : Alteration in Gastrointestinal Func/new 10/01/2022 8:00 EDT Alteration in GI status Related to Abdominal Surgery Goals & Outcomes, Gastrointestinal Establish a regular pattern of elimination for pt, Nutritional intake is adequate for metabolic needs, Pt will achieve normal/improved fluid balance, Pt will have a bowel movement prior to discharge, Pt will maintain adequate GI function appropriate for pt, Ptwill maintain normal elimination patterns, Pt will resume/maintain adequate hemodynamic status, Pt will tolerate age appropriate diet prior to discharge, Pt will not experience s/s of infection priorto discharge Interventions, Gastrointestinal Assess/monitor abdomen for distention, tenderness, Assess/monitor abdominal girth & bowel function, Assess/monitor bowel pattern, bowel sounds, flatus, Assess/monitor number of bowel movements, Assess/monitor color, quantity, quality, consistency of stoo, Assess/monitor pt for nausea, vomiting, Assess/monitor effects of re-hydration, Assess/monitor intake &output, Assess if pt tolerating diet, Collaborate/Consult with Meeting Specialist; review recommendations, DVT prophylaxis as ordered, Elevate HOB to facilitate lung expansion, prevent aspiration, Establish toileting schedule for patient, Taking PO: Encourage/monitor intake & swallowing ability, Provideinfo on community resources for education, support, Teach Pt/caregiver diet & give copy of dietary instructions, Teach Pt/caregiver on bowel elimination interventions, Teach Pt/caregiver re: importance of bowel regime, Teach Pt/caregiver re: nutritional intake & dietary restrict, Teach/encourage deep breath & cough exercises, Teach/encourage use of incentive spirometer BH Goals/Interventions, Gastrointestinal Yes Gastrointestinal, Problem Start 09/29/2022 15:00 Reviewed plan with, Gastrointestinal Patient Patient Progression, Gastrointestinal Pt progressing according to plan . Nursing Data Cardiac Data. : Cardiac Data. 10/01/2022 8:00 EDT Skin Temperature Upper Extremities Warm Skin Temperature Lower Extremities Warm Cardiac Rhythm Normal sinus rhythm Dorsalis Pedis Pulse, Left Normal Dorsalis Pedis Pulse, Right Normal teletypesetter monitor Yes Cardiovascular WNL except . Gastrointestinal Data. : Gastrointestinal Data. 10/01/2022 8:00 EDT Abdomen Soft, Tender, Distended Bowel Sounds LUQ Present Bowel Sounds RUQ Present Bowel Sounds LLQ Present Bowel Sounds RLQ Present Ostomy present No Gastric tube present No GI WNL except . Genitourinary Data. : Genitourinary Data. 10/01/2022 8:00 EDT Urinary catheter type Female External Urine Collection Device Urinary catheter intervention Patent, no intervention Urine Color Yellow WNL except . HEENT Data. : HEENT Assessment 10/01/2022 8:00 EDT HEENT, Adult WNL except HEENT Comment, Adult wears glasses, c/o dry mouth . Integumentary Data. : Integumentary Data. 10/01/2022 7:18 EDT Sensory Perception No impairment Moisture Occasionally moist Activity Walks occasionally Mobility Slightly limited Nutrition Adequate Friction and Shear No apparent problem Dipak Score 19 Nursing Care Plan initiated/updated Not applicable . Musculoskeletal Data. : Musculoskeletal Data. 10/01/2022 8:00 EDT Musculoskeletal Symptoms None Musculoskeletal WNL except . Neurological Data. : Neurological Data. 10/01/2022 8:00 EDT Tongue Disposition Midline Level of Consciousness Full Consciousness Orientated to person, place, time Person, Place, Time, Event Facial Symmetry Intact Characteristics of Speech Clear and normal Strength LUE 4-Active movement against gravity & some resistance Strength RUE 4-Active movement against gravity & some resistance Strength LLE 4-Active movement against gravity & some resistance Strength RLE 4-Active movement against gravity & some resistance Tone LUE Normal Tone RUE Normal Tone LLE Normal Tone RLE Normal Sensation LUE Intact Sensation RUE Intact Sensation LLE Intact Sensation RLE Intact Movement LUE Spontaneous Movement RUE Spontaneous Movement LLE Spontaneous Movement RLE Spontaneous Neuro WNL except Eyes and Movements Conjugate gaze: Move in same direction at same speed Memory Intact Swallow - Neuro Normal . Narrative/Incidental patient remains in IMC. On monitor showing NSR, VSS. Patient AOX4, pleasant, cooperative. follows commands, makes needs known. speech clear and normal. swallow intact, does have difficulty w some pills due to dry mouth (now on home med to help) and medications modified and working well for patient.WALTER, normal tone and sensation throughout. Wearing glasses. Speech clear and normal. PEERL. Tolerating room air thus far during day, denies dyspnea, using IS. breathing unlabored and symmetric. Denies n/v, passing gas, has had 2 BM today, diet advanced to cardiac diet. Team notified pt c/o some heartburn and asked for tums, also made aware that pt takes omeprazole at home and asked if they would s tart her on pantoprazole while here in hospital. stomach w some distention, soft, with incisional tenderness. bandaids removed , steri strips left AGNIESZKA. purewick used at times for urgency but able to make it in bathroom as well. prev using IV pole to ambulate, now that abx are discontinued using walker. OOB washed up in bathroom, walked into halls, now sitting up in chair, gaymer cushion utilized.wearing compression boots. Pain well controlled, dilaudid PO changed to oxy. Safety meaures are in place, for more details pls see CIS. * Katina Samaniego: PERFORM Event Display: Progress Note Hospital Authored Date: [id number] team notified of pt having multiple loose BM. PT worked w pt today Patient Care team information Care Team Personnel Name: Camille Mathew RN Position: [facility] RN Member Role: Primary Care Nurse Name: Haley Burgses NP Position: [facility] PCO Associate Professional Member Role: PCP Address: Address: [address] [place] [id number]- Name: Poornima Martinez RN Position: [facility] RN Member Role: Primary Care Nurse Name: Suhail Duckworth RN Position: [facility] RN Supv Member Role: Primary Care Nurse Name: Holli Ramos RN Position: [facility] RN Member Role: Primary Care Nurse Name: Katina Samaniego Position: [facility] RN Member Role: Primary Care Nurse Name: Felecia Hernandez RN Position: [facility] Onco RN Member Role: Primary Care Nurse Name: Verito Alonzo RN Position: [facility] RN Member Role: Primary Care Nurse Name: Minh Bryant RN Position: [facility] RN Member Role: Primary Care Nurse Name: Justin DAVIS Attending Position: [facility] ED Medicine MD Name: Yenifer Mejia Position: [facility] ED TA [facility] Member Role: Auto Service Instructor Name: Rosario Greer RN Position: [facility] ED RN W/OE and Tasks Member Role: Patient Care Provider Name: Walter Bach DO Position: [facility] Resident Member Role: Resident Address: Address: [address] [place] [address] [place] [address]- Care Team Related Persons Name: ZAINA ROBERSON Address: home [address] [place] [address]
--- OUTSIDE RECORDS SUMMARY | 2024-04-14 23:40 | XMS_ITS | Continuity of Care Document ---
Author Organization [facility] Address [address] [place] [address]- Care Team Providers Care Coroner'S Juror Name Role Phone Aditya DECORATING SUPERVISOR, Haley Brownlee Primary Care Physician [phone] Encounter [facility] [place] Date(s): 03/16/23 - 06/14/23 [facility] [address] [place] [id number] Discharge Disposition: A-D/C Home Attending Physician: Jordan Jaeger MD Admitting Physician: Jordan Jaeger MD Referring Physician: August Valdes MD, I Allergies, Adverse Reactions, Alerts No Known Allergies Immunizations Given and Recorded Vaccine Date Status Refusal Reason pneumococcal 20-valent conjugate vaccine 1 01/17/23 Given [id number] 12y+ bivalent booster vax 2 04/27/22 Given influenza virus vaccine, inactivated 04/09/22 Carrillo rded influenza virus vaccine, inactivated 02/17/21 Carrillo rded influenza virus vaccine, inactivated 03/23/18 Carrillo rded influenza virus vaccine, inactivated 04/01/17 Carrillo rded influenza virus vaccine, inactivated 03/18/16 Carrillo rded SARS-CoV-2 mRNA ([id number]) vax 09/30/21 Recorded SARS-CoV-2 (COVID-19) mRNA [id number]-[id number] [...] pneumococcal 13-valent vaccine 06/20/15 Recorded 1Result Comment: [id number] 2Result Comment: [id number] Medications 1 breast prosthesis and three bras [...] Maintenance, 04/05/23 10:51:00 EDT, [facility]), 153, cm, 01/17/23 9:12:00 EDT, [...] Active 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 Vital Signs Most recent to oldest [Reference Range]: 1 Height 153 cm (04/14/23 3:06 PM) Weight 87.6 kg (04/14/23 3:06 PM) Oxygen Saturation [94-100 %] 99 % (04/14/23 3:06 PM) Pulse Rate [55-90 bpm] 95 bpm *H* (04/14/23 3:06 PM) Body Mass Index [18.5-24.99 kg/m2] 37.42 kg/m2 *>HHI* (04/14/23 3:06 PM) Blood Pressure [90-138/55-84 mm Hg] 131/ 65mm Hg (04/14/23 3:06 PM) Temperature [96.8-100.4 DegF] 98 DegF (04/14/23 3:06 PM) Mode of Delivery (Oxygen) Room air (04/14/23 3:06 PM) Blood pressure sites Arm, left (04/14/23 3:06 PM) Temperature Route Oral (04/14/23 3:06 PM) Dry Weight 87.6 kg (04/14/23 3:06 PM) Weight Obtained Via Standing scale (04/14/23 3:06 PM) Dry Weight Obtained Via Standing scale (04/14/23 3:06 PM) Social History Social History Type Response Smoking Status Former smoker, quit more than 30 days ago; Tobacco use times per day: social smoker; Started at age: 18; Stopped at age: 23; entered on: 1/10/22 Sex Patient Care team information Care Team Personnel Name: Camille Mathew RN Position: S RN Member Role: Primary Care Nurse Name: Haley Burgess NP Position: [facility] PCO Associate Professional Member Role: PCP Address: Address: [address] [place] [address]- [place] Name: Poornima Martinez RN Position: S RN Member Role: Primary Care Nurse Name: Suhail Duckworth RN Position: [facility] RN Supv Member Role: Primary Care Nurse Name: Holli Ramos RN Position: S RN Member Role: Primary Care Nurse Name: Katina Samaniego Position: S RN Member Role: Primary Care Nurse Name: Felecia Hernandez RN Position: [facility] Onco RN Member Role: Primary Care Nurse Name: Verito Alonzo NP Position: [facility] PCO Associate Professional Member Role: Primary Care Nurse Address: Address: [address] [place] [address] [place] [address]- [place] Name: Minh Bryant RN Position: [facility] RN Member Role: Primary Care Nurse Care Team Related Persons Name: ZAINA ROBERSON Address: home [address] [place] [address]
--- OUTSIDE RECORDS SUMMARY | 2024-04-14 23:40 | XMS_ITS | Continuity of Care Document ---
Author Organization [facility] ter Address [address] [place] [phone]- Care Team Providers Care Senior Enterprise Architect Name Role Phone Aditya Haley HU Primary Care Physician Encounter [facility] Date(s): 03/19/22 - 03/19/[address] [id number] Discharge Disposition: A-D/C Home Attending Physician: Scott Silva MD Admitting Physician: Scott Silva MD Referring Physician: Scott Silva MD Allergies, Adverse Reactions, Alerts No Known Allergies Immunizations Given and Recorded Vaccine Date Status Refusal Reason SARS-CoV-2 mRNA (ijflrbc-finn-fqglo) vax 09/30/21 Recorded SARS-CoV-2 (COVID-19) mRNA BNT-162b2 vac 03/26/21 Recorded SARS-CoV-2 (COVID-19) mRNA BNT-162b2 vac 08/25/20 Given SARS-CoV-2 (COVID-19) mRNA BNT-162b2 vac 08/04/20 Given influenza virus vaccine, inactivated 02/17/21 Carrillo rded influenza virus vaccine, inactivated 03/23/18 Carrillo rded influenza virus vaccine, inactivated 04/01/17 Carrillo rded influenza virus vaccine, inactivated 03/18/16 Carrillo rded Influenza Virus Vaccine (oldterm) 03/19/20 [...] Not Given Parent Or Guardian Refuses Medications acetaminophen 160 mg/5 mL oral liquid 20 mL = 640 mg, By Mouth, 3 times a day, PRN Pain , Mild, Check temperature before using, # 480 mL,2 Refills, Maintenance, 12/22/21 14:32:00 EDT, Liquid, [facility] #[id number], Partial fill upon patient request if the prescription is for a sche... Start Date: 12/22/21 Status: Ordered cetirizine 1 mg/mL oral syrup 10 mL = 10 mg, By Mouth, Daily, PRN Itch, replaces benadryl, # 120 mL, 0 Refills, Maintenance, 12/28/21 10:47:00 EDT, Syrup, [facility] #[id number], 154.94, cm, 12/28/21 10:31:00 EDT, Height, 97.6, kg, 12/23/21 12:27:00 EDT, Dry Weight Start Date: 12/28/21 Stop Date: 01/11/22 Status: Ordered lidocaine-prilocaine 2.5%-2.5% topical cream 1 application, Topically, Once, use 40 min before port access, # 30 Gm, 0 Refills, Soft Stop, 11/30/21 16:17:00 EDT, [facility] #[id number], Partial fill upon patient request if the prescription is for a schedule II opioid drug., 1 applica... Start Date: 11/30/21 Status: Ordered miracle mouth wash miracle mouth wash, See Instructions, # 580 mL, Refills 1, Tot. Refills 1, Maintenance, Benadryl elixir 4 oz, nystatin susp (100,000 u/ml) 4 0z, lidocaine visc 2% 100mL, mylanta 8 oz 5-10 mL swish and spit every 2 hrs PRN mouth sores, 02/09/22 14:2... Start Date: 02/09/22 Status: Ordered Miracle Mouthwash Miracle Mouthwash, See Instructions, # 580 mL, Refills 5, Tot. Refills 5, Maintenance, Benadryl huyean7qu+Nystatin susp(100,000 u/ml)4oz+Visc.Lido2%100ml+Mylanta 8oz. 5-10cc swish+spit/swallow Q2 hr PRN mouth-throat pain., 12/16/21 9:44:00 EDT, Compou... Start Date: 12/16/21 Status: Ordered MiraLax oral powder for reconstitution = 17 Gm, By Mouth, Daily, dissolve in water before taking, # 527 Gm, 1 Refills, Maintenance, 01/01/22 9:53:00 EDT, REC Powder, [facility] #[id number], Partial fill upon patient request if the prescription is for a schedule II opioid drug., 17 Gm... Start Date: 01/01/22 Status: [facility], Maintenance, [facility], 10/27/21 14:50:00 EDT, Supply Start Date: 10/27/21 Status: Ordered omeprazole 2 mg/mL oral suspension 10 mL = 20 mg, By Mouth, Daily, or give through G-tube, # 300 mL, 2 Refills, Maintenance, 01/08/22 13:02:00 EDT, Suspension, [facility], Partial fill upon patient request if the prescription is for a schedule II opioid drug., 154.94, cm,... Start Date: 01/08/22 Status: Ordered ondansetron 4 mg oral tablet, disintegrating 1 tablet = 4 mg, By Mouth, Every 8 hours, PRN as needed for nausea/vomiting, # 30 tablet, 1 Refills, Maintenance, 02/09/22 14:30:00 EDT, DIS Tablet, [facility] #[id number], Patient not tolerating PO. Partial fill upon patient request if the presc... Start Date: 02/09/22 Status: Ordered oxyCODONE 5 mg/5 mL oral solution 5 - 7.5 mL, G Tube, Every 6 hours, PRN Pain , Severe, # 210 mL, 0 Refills, Maintenance, 02/16/22 17:18:00 EDT, Solution, [facility] #[id number], Partial fill upon patient request if the prescription is for a schedule II opioid drug., 156, cm, .. Start Date: 02/16/22 Stop Date: 02/23/22 Status: Ordered pilocarpine 5 mg oral tablet 1 tablet = 5 mg, By Mouth, 3 times a day, May cause sweating or dizziness so do not drive after first dose to ensure you tolerate it., # 90 tablet, 1 Refills, Maintenance, 03/18/22 8:35:00 EDT, Tablet, [facility] #[id number], Partial fill upon pa... Start Date: 03/18/22 Status: Ordered Silvadene 1% cream 1 application, Topically, 2 times a day, # 400 Gm, 1 Refills, Acute 04/18/22 13:59:00 EDT, 01/18/2213:59:00 EDT, Cream, [facility] #[id number], Partial fill upon patient request if the prescription is for a schedule II opioid drug., 1 applicatio... Start Date: 01/18/22 Stop Date: 04/18/22 Status: Ordered sucralfate 1 gm oral tablet See Instructions, DISSOLVE 1 TABLET IN 10 ML WARM WATER AND DRINK THREE TIMES DAILY BEFORE A MEAL, # 60 tablet, Refills 0, Tot. Refills 0, 02/02/22 13:45:00 EDT, Instructions Replace Required Details, Route to Pharmacy Electronically, [facility]... Start Date: 02/02/22 Status: Ordered Problem List Condition Confirmation Course Effective Dates Status H ealth Status Informant Allergic rhinitis Confirmed Active OAB (overactive bladder) Confirmed Active Chronic kidney disease (CKD) stage G3a/Ax Confirmed Active Bochdalek hernia Confirmed Active Degenerative lumbar disc Confirmed Active Gastrostomy tube dependent Confirmed Active Dyslipidemia Confirmed Active GERD (gastroesophageal reflux disease) Confirmed Active History of breast cancer (right breast) 1996 S/P umpectomy and radiation Confirmed Active Hypertension Confirmed Active Nephrolithiasis Confirmed Active Malignant neoplasm of tonsil Confirmed Active Multiple pulmonary nodules Confirmed Active DNR (do not resuscitate) Confirmed Active Obese class II Confirmed Active Osteopenia of femoral neck Confirmed Active NSAID long-term use Confirmed Active Vital Signs Most recent to oldest [Reference Range]: 1 2 Oxygen Saturation [94-100 %] 95 % (03/19/22 3:37 PM) 96 % (03/19/22 11:51 AM) Pulse Rate [55-90 bpm] 85 bpm (03/19/22 3:37 PM) 93 bpm *H* (03/19/22 11:51 AM) Blood Pressure [90-138/55-84 mm Hg] 142/ 70mm Hg *H* (03/19/22 3:37 PM) 150/55mm Hg *H* (03/19/22 11:51 AM) Respiratory Rate [16-30 br/min] 18 br/mi n (03/19/22 3:37 PM) 18 br/min (03/19/22 11:51 AM) Temperature [96.8-100.4 DegF] 98.2 DegF (03/19/22 11:51 AM) Mode of Delivery (Oxygen) Room air (03/19/22 3:37 PM) Room air (03/19/22 11:51 AM) Blood pressure sites Arm, left (03/19/22 3:37 PM) Arm, left (03/19/22 11:51 AM) Temperature Route Oral (03/19/22 11:51 AM) Social History Social History Type Response Smoking Status Former smoker, quit more than 30 days ago; Tobacco use times per day: social smoker; Started at age: 18; Stopped at age: 23; entered on: 06/29/21 Sex Patient Care team information Personnel Name: Haley Burgess NP Address: Address: [address] [place] [id number]
--- OUTSIDE RECORDS SUMMARY | 2024-04-14 23:40 | XMS_ITS | Continuity of Care Document ---
Author Organization [facility] Address [address] [place] [address]- Care Team Providers Care Fitter Helper Name Role Phone Aditya MANAGER BEHAVIORALHaley Primary Care Physician Encounter [facility] Date(s): 10/04/23 - 11/03/23 [facility] [address] [place] [address] Attending Physician: Dena Burroughs Admitting Physician: AdmtreDna Referring Physician: Admtr, Ar8 Allergies, Adverse Reactions, Alerts No Known Allergies Immunizations Given and Recorded Vaccine Date Status Refusal Reason influenza virus vaccine, inactivated 04/09/23 Carrillo rded influenza virus vaccine, inactivated 04/09/22 Carrillo rded influenza virus vaccine, inactivated 02/17/21 Carrillo rded influenza virus vaccine, inactivated 03/23/18 Carrillo rded influenza virus vaccine, inactivated 04/01/17 Carrillo rded influenza virus vaccine, inactivated 03/18/16 Carrillo rded SARS-CoV-2(COVID-19)mRNA-LNP vac([id number]) 04/09/23 Recorded pneumococcal 20-valent conjugate vaccine 1 01/17/23 Given [id number] 12y+ bivalent booster vax 2 04/27/22 Given SARS-CoV-2 mRNA ([id number]) vax 09/30/21 Recorded SARS-CoV-2 (COVID-19) mRNA BNT-162b2 vac 03/26/21 Recorded SARS-CoV-2 (COVID-19) mRNA BNT-162b2 vac 08/25/20 Given SARS-CoV-2 (COVID-19) mRNA BNT-162b2 vac 08/04/20 Given Influenza Virus Vaccine (oldterm) 9/30/20 Recorde d Influenza Virus Vaccine (oldterm) 03/17/19 Recorde d zoster vaccine, inactivated 08/05/18 Recorded zoster vaccine, inactivated 03/23/18 Recorded pneumococcal 23-valent vaccine 04/01/17 Recorded pneumococcal 23-valent vaccine 06/20/09 Recorded pneumococcal 13-valent vaccine 10/28/15 Recorded pneumococcal 13-valent vaccine 06/20/15 Recorded 1Result Comment: [id number] 2Result Comment: [id number] Medications cevimeline 30 mg oral capsule 1 capsule = 30 mg, By Mouth, 3 times a day, # 90 capsule, 5 Refills, Maintenance, 08/13/23 12:25:00EST, Capsule, [id number], 153, cm, 07/18/23 10:07:00 EST, Height, 87.6, kg, 04/14/23 15:06:00 EDT, Dry Weight Start Date: 08/13/23 Stop Date: 02/09/24 Status: Ordered fenofibrate 160 mg oral tablet [...] Maintenance, 04/05/23 10:51:00 EDT, [facility]), 153, cm, 01/17/23 9:12:00 EDT, Height, 93.3, kg, 09/29/22 15:49:00 EDT, Dry Weight Start Date: 04/05/23 Status: Ordered PreviDent 5000 Enamel Protect 1.1%-5% topical paste 1 application, Topically, 2 times a day, rinse and spit; do not swallow, # 100 mL, 6 Refills, Maintenance, 04/14/23 18:52:00 EDT, Paste, [facility] #[id number], Partial fill upon patient request [...] of femoral neck Confirmed Active Severe obesity Confirmed Active 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 Social History Social History Type Response Smoking Status Former smoker, quit more than 30 days ago; Tobacco use times per day: social smoker; Started at age: 18; Stopped at age: 23; entered on: 06/29/21 Sex Patient Care team information Care Team Personnel Name: Camille Mathew RN Position: [facility] RN Member Role: Primary Care Nurse Name: Haley Burgess NP Position: [facility] PCO Associate Professional Member Role: PCP Address: Address: [address] [place] [id number]- [place] Name: Poornima Martinez RN Position: [facility] RN Member Role: Primary Care Nurse Name: Suhail Duckworth RN Position: [facility] RN Supv Member Role: Primary Care Nurse Name: Holli Ramos RN Position: S RN Member Role: Primary Care Nurse Name: Katina Samaniego Position: S RN Member Role: Primary Care Nurse Name: Felecia Hernandez RN Position: [facility] Onco RN Member Role: Primary Care Nurse Name: Verito Alonzo NP Position: [facility] PCO Associate Professional Member Role: Primary Care Nurse Address: Address: [address] [place] [phone]- [place] Name: Minh Bryant RN Position: S RN Member Role: Primary Care Nurse Care Team Related Persons Name: DAZAINA Address: [address] [place] [address]
--- OUTSIDE RECORDS SUMMARY | 2024-04-14 23:40 | XMS_ITS | Continuity of Care Document ---
Author Organization [facility] ter Address [address] [place] [address]- Care Team Providers Care Air Valve Repairer Name Role Phone Aditya MAYTE, Haley Brownlee Primary Care Physician [phone] Encounter [facility] Date(s): 12/24/21 - 12/26/[address] [address]- Discharge Disposition: A-Transfer VNA/Home Health Attending Physician: Gerri Snider MD Admitting Physician: Cory Campbell MD Referring Physician: Cory Campbell MD Allergies, Adverse Reactions, Alerts No Known [...] mL,2 Refills, Maintenance, 12/22/21 14:32:00 EDT, Liquid, [facility] #[id number], Partial fill upon patient request if the prescription is for a sche... Start Date: 12/22/21 Status: Ordered benazepril-hydrochlorothiazide 10 mg-12.5 mg oral [...] EDT, Height Start Date: 05/04/21 Status: Ordered hydrocortisone 1% topical cream 1 application, Topically, 3 times a day, PRN Itch, for 5 days, apply in a thin film to the affectedskin and rub in gently and completely, # 15 Gm, 0 Refills, Acute 12/31/21 10:36:00 EDT, 12/26/21 10:36:00 EDT, [facility] #[id number], Part... Start Date: 12/26/21 Stop Date: 12/31/21 Status: Ordered lidocaine-prilocaine 2.5%-2.5% topical cream 1 application, Topically, Once, use 40 min before port access, # 30 Gm, 0 Refills, Soft Stop, 11/30/21 16:17:00 EDT, [facility] #[id number], Partial fill upon patient request if the prescription is for a schedule II opioid drug., 1 applica... Start Date: 11/30/21 Status: Ordered Miracle Mouthwash Miracle Mouthwash, See Instructions, # 580 mL, Refills 5, Tot. Refills 5, Maintenance, Benadryl [id number]+Nystatin susp(100,000 u/ml)4oz+Visc.Lido2%100ml+Mylanta 8oz. 5-10cc swish+spit/swallow Q2 hr PRN mouth-throat pain., 12/16/21 9:44:00 EDT, Compou... Start Date: 12/16/21 Status: Ordered Misc Rx Refills 0, Maintenance, [facility], 10/27/21 14:50:00 EDT, Supply Start Date: 10/27/21 Status: Ordered ondansetron 8 mg oral tablet 1 tablet = 8 mg, By Mouth, Every 8 hours, PRN as needed for nausea/vomiting, # 30 tablet, 1 Refills, Maintenance, 11/30/21 8:53:00 EDT, Tablet, [facility] #[id number], Partial fill upon patient request if the prescription is for a schedule II opi... Start Date: 11/30/21 Status: Ordered prochlorperazine 5 mg oral tablet 1 tablet = 5 mg, By Mouth, Every 6 hours, PRN Nausea & Vomiting, may cause drowsiness, # 30 tablet, 0 Refills, Maintenance, 11/30/21 8:53:00 EDT, [facility] #[id number], Partial fill upon patient request if the prescription is for a schedule II o... Start Date: 11/30/21 Status: Ordered traMADol 50 mg oral tablet 1 tablet = 50 mg, By Mouth, Every 12 hours, PRN as needed for pain, # 8 tablet, 0 Refills, Maintenance, 11/25/21 14:58:00 EDT, Tablet, [facility] #[id number], Partial fill upon patient request if the [...] oldest [Reference Range]: 1 2 3 Height 154.94 cm (12/26/21 4:45 AM) 154.94 cm (12/25/21 8:37 PM) 154.94 cm (12/25/21 4:45 AM) Weight 97.6 kg (12/23/21 1:16 PM) 97.6 kg (12/23/21 12:27 PM) Oxygen Saturation [94-100 %] 97 % (12/26/21 4:45 AM) 95 % (12/25/21 8:37 PM) 94 % (12/25/21 3:00 PM) Pulse Rate [55-90 bpm] 83 bpm (12/26/21 4:45 AM) 88 bpm (12/25/21 8:37 PM) 86 bpm (12/25/21 3:00 PM) Blood Pressure [90-138/55-84 mm Hg] 135/77mm Hg (12/26/21 4:45 AM) 139/71mm Hg *H* (12/25/21 8:37 PM) 135/66mm Hg (12/25/21 3:00 PM) Respiratory Rate [16-30 br/min] 18 br/min (12/26/21 4:45 AM) 18 br/min (12/25/21 8:37 PM) 18 br/min (12/25/21 3:00 PM) Temperature [96.8-100.4 DegF] 98.1 DegF (12/26/21 4:45 AM) 98.8 DegF (12/25/21 8:37 PM) 98.9 DegF (12/25/21 3:00 PM) Liters per Minute 3 L/min (12/23/21 6:45 PM) 3 L/min (12/23/21 6:30 PM) 3 L/min (12/23/21 6:15 PM) Mode of Delivery (Oxygen) Room air (12/26/21 4:45 AM) Room air (12/25/21 8:37 PM) Room air (12/25/21 4:45 AM) Blood pressure sites Arm, left (12/26/21 4:45 AM) Arm, left (12/25/21 8:37 PM) Arm, left (12/25/21 3:00 PM) Temperature Route Oral (12/26/21 4:45 AM) Oral (12/25/21 8:37 PM) Oral (12/25/21 3:00 PM) Dry Weight 97.6 kg (12/23/21 12:27 PM) Weight Obtained Via Patient/family state d (12/23/21 12:27 PM) Social History Social History Type Response Smoking Status Former smoker, quit more than 30 days ago; Tobacco use times per day: social smoker; Started at age: 18; Stopped at age: 23; entered on: 06/29/21 Sex
--- OUTSIDE RECORDS SUMMARY | 2024-04-14 23:40 | XMS_ITS | Continuity of Care Document ---
Author Organization [facility] Leonid Sergo lt Address [address] [place] [id number]- Care Team Providers Care Polygraph Examiner Name Role Phone Aditya POWDER SHOVELERHaley Primary Care Physician [phone] Encounter [facility] Date(s): 03/18/23 - 04/17/23 [facility] Adult [address] [place] [address]- Allergies, Adverse Reactions, Alerts No Known Allergies Immunizations Given and Recorded Vaccine Date Status Refusal Reason pneumococcal 20-valent conjugate vaccine 1 01/17/23 Given [id number] 12y+ bivalent booster vax 2 04/27/22 Given influenza virus vaccine, inactivated 04/09/22 Carrillo rded influenza virus vaccine, inactivated 02/17/21 Carrillo rded influenza virus vaccine, inactivated 03/23/18 Carrillo rded influenza virus vaccine, inactivated 04/01/17 Carrillo rded influenza virus vaccine, inactivated 03/18/16 Carrillo rded SARS-CoV-2 mRNA ([id number]-mxvbk) vax 09/30/21 Recorded SARS-CoV-2 (COVID-19) mRNA BNT-162b2 vac 03/26/21 Recorded SARS-CoV-2 (COVID-19) mRNA BNT-162b2 vac 08/25/20 Given SARS-CoV-2 (COVID-19) mRNA BNT-162b2 vac 08/04/20 Given Influenza Virus Vaccine (oldterm) 03/19/20 Recorde d Influenza Virus Vaccine (oldterm) 03/17/19 Recorde d zoster vaccine, inactivated 08/05/18 Recorded zoster vaccine, inactivated 03/23/18 Recorded pneumococcal 23-valent vaccine 04/01/17 Recorded pneumococcal 23-valent vaccine 06/20/09 Recorded pneumococcal 13-valent vaccine 5/10/16 Recorded pneumococcal 13-valent vaccine 06/20/15 Recorded 1Result Comment: [id number] 2Result Comment: [id number] Medications 1 breast prosthesis and three bras [...] Date: 06/14/23 Stop Date: 08/13/23 Status: Ordered cevimeline 30 mg oral capsule 1 capsule = 30 mg, By Mouth, 3 times a day, for 30 days, Stop taking Pilocarpine when taking this medication, # 90 capsule, 5 Refills, Hard Stop 06/14/23 12:25:00 EST, 12/16/22 12:25:00 EDT, [id number], Partial fill upon patient reque... Start Date: 12/16/22 Stop Date: 06/14/23 Status: Ordered fenofibrate 160 mg oral tablet 1 tablet = 160 mg, By Mouth, Daily, # 90 tablet, 1 Refills, Maintenance, 01/27/23 16:11:00 EDT, Tablet, [facility]), 153, cm, 01/17/23 9:12:00 EDT, Height, 93.3, kg, 09/29/22 15:49:00 EDT, Dry Weight Start Date: 01/27/23 Stop Date: 07/26/23 Status: Ordered omeprazole 20 mg oral enteric coated capsule 1 capsule, By Mouth, Daily, PRN NEEDED FOR DYSPEPSIA, # 90 capsule, 1 Refills, Maintenance, 04/05/23 10:51:00 EDT, [facility]), 153, cm, 01/17/23 9:12:00 EDT, [...] Care Nurse Name: Haley Burgess NP Position: [facility] PCO Associate Professional Member Role: PCP Address: Address: [address] [place] [id number] Name: Poornima Martinez RN Position: S RN Member Role: Primary Care Nurse Name: uShail Duckworth RN Position: S RN Supv Member Role: Primary Care Nurse Name: Holli Ramos RN Position: S RN Member Role: Primary Care Nurse Name: Katina Samaniego Position: S RN Member Role: Primary Care Nurse Name: Felecia Hernandez RN Position: [facility] Onco RN Member Role: Primary Care Nurse Name: Verito Alonzo NP Position: [facility] PCO Associate Professional Member Role: Primary Care Nurse Address: Address: [address] [place] [address] [place] [address]- Name: Minh Bryant RN Position: [facility] RN Member Role: Primary Care Nurse Care Team Related Persons Name: DAZAINA Address: home [address] [place] [address]
--- OUTSIDE RECORDS SUMMARY | 2024-04-14 23:40 | XMS_ITS | Continuity of Care Document ---
Author Organization [facility] Address Unknown Care Team Providers Care Janitor And Cleaner Name Role Phone Haley Burgess NP Primary Care Physician Encounter [facility] Date(s): 09/28/21 - 11/28/21 [facility] Attending Physician: Ángel Calvert Referring Physician: Haley Burgess NP Allergies, Adverse Reactions, Alerts No Known Allergies [...] ER Tablet Start Date: 05/02/19 Status: Ordered traMADol 50 mg oral tablet 1 tablet = 50 mg, By Mouth, Every 12 hours, PRN as needed for pain, # 8 tablet, 0 Refills, Maintenance, 11/25/21 14:58:00 EDT, Tablet, [facility] #[id number], Partial fill upon patient request if the prescription is for a schedule II opioid drug.... Start Date: 11/25/21 Status: Ordered Problem List Condition Effective Dates Status Health Status Inform ant Allergic rhinitis(Confirmed) Active OAB (overactive bladder)(Confirmed) Active Chronic kidney disease (CKD) stage G3a/Ax(Confirmed) Active Bochdalek hernia(Confirmed) Active Degenerative lumbar disc(Confirmed) Active Dyslipidemia(Confirmed) Active GERD (gastroesophageal reflu x disease)(Confirmed) Active History of breast cancer ([facility] breast) 1996 S/P umpectomy and radiation(Confirmed) Active [...]
--- OUTSIDE RECORDS SUMMARY | 2024-04-14 23:40 | XMS_ITS | Continuity of Care Document ---
Author Organization [facility] Sal Jaquez Sergo lt Address [address] [place] [address]- Care Team Providers Care Chemist Pharmaceutical Name Role Phone Ricardo Marie MD Primary Care Physician [phone] Encounter [facility] Date(s): 06/27/19 - 07/07/19 [facility] Adult [address] [place] [address]- [facility] Attending Physician: Admtr, Ar8 Admitting Physician: Admtr, Rich8 Referring Physician: Admtr, Ar8 Allergies, Adverse Reactions, Alerts Substance Reaction Severity [...]
--- OUTSIDE RECORDS SUMMARY | 2024-04-14 23:40 | XMS_ITS | Continuity of Care Document ---
Author Organization [facility] Sergo lt Address [address] [place] [address]- Care Team Providers Care Hostess Party Sales Representative Name Role Phone Aditya HU, Haley Brownlee Primary Care Physician Encounter [facility] [place] Date(s): 12/28/21 - 01/04/22 [facility] Adult [address] [place] [address]- Encounter Diagnosis Malignant neoplasm of tonsil(Discharge Diagnosis) - 12/27/21 Dermatitis(Discharge Diagnosis) - 12/28/21 Gastrostomy tube dependent(Discharge Diagnosis) - 12/28/21 Multiple pulmonary nodules(Discharge Diagnosis) - 12/28/21 Hypertension(Discharge Diagnosis) - 12/27/21 Chronic kidney disease (CKD) stage G3a/Ax(Discharge Diagnosis) - 12/27/21 Dyslipidemia(Discharge Diagnosis) - 12/27/21 Hypomagnesemia(Discharge Diagnosis) - 12/27/21 Attending Physician: Haley Burgess NP Referring Physician: Elizabet SEGURA, Austin Lin Allergies, Adverse Reactions, Alerts No Known Allergies Immunizations Given and Recorded Vaccine Date Status Refusal Reason SARS-CoV-2 mRNA ([id number]) vax 09/30/21 Recorded SARS-CoV-2 (COVID-19) mRNA BNT-162b2 [...] mL,2 Refills, Maintenance, 12/22/21 14:32:00 EDT, Liquid, [facility] #[id number], Partial fill upon patient request if the prescription is for a sche... Start Date: 12/22/21 Status: Ordered benazepril-hydrochlorothiazide 10 mg-12.5 mg oral tablet 1 tablet, By Mouth, Daily, # 90 tablet, 3 Refills, Maintenance, 11/06/20 16:40:00 EDT, [facility], 90, TAKE 1 TABLET BY MOUTH DAILY, 156, cm, 12/27/19 12:57:00 EDT, Height Start Date: 11/06/20 Status: Ordered cetirizine 1 mg/mL oral syrup 10 mL = 10 mg, By Mouth, Daily, PRN Itch, replaces benadryl, # 120 mL, 0 Refills, Maintenance, 12/28/21 10:47:00 EDT, Syrup, [id number], 154.94, cm, 12/28/21 10:31:00 EDT, Height, 97.6, kg, 12/23/21 12:27:00 EDT, Dry Weight Start Date: 12/28/21 Stop Date: 01/11/22 Status: Ordered fenofibrate 160 mg oral tablet 1 tablet, By Mouth, Daily in AM, # 90 tablet, 3 Refills, [facility], 156, cm, 12/27/19 12:57:00 EDT, Height Start Date: 05/04/21 Status: Ordered lidocaine-prilocaine 2.5%-2.5% topical cream 1 application, Topically, Once, use 40 min before port access, # 30 Gm, 0 Refills, Soft Stop, 11/30/21 16:17:00 EDT, Cream, [facility] #[id number], Partial fill upon patient request if the prescription is for a schedule II opioid drug., 1 applica... Start Date: 11/30/21 Status: Ordered Miracle Mouthwash Miracle Mouthwash, See Instructions, # 580 mL, Refills 5, Tot. Refills 5, Maintenance, Benadryl [id number]+Nystatin susp(100,000 u/ml)4oz+Visc.Lido2%100ml+Mylanta 8oz. 5-10cc swish+spit/swallow Q2 hr PRN mouth-throat pain., 12/16/21 9:44:00 EDT, Compou... Start Date: 12/16/21 Status: Ordered MiraLax oral powder for reconstitution = 17 Gm, By Mouth, Daily, dissolve in water before taking, # 527 Gm, 1 Refills, Maintenance, 01/01/22 9:53:00 EDT, REC Powder, [id number], Partial fill upon patient request if the prescription is for a schedule II opioid drug., 17 Gm... Start Date: 01/01/22 Status: Ordered [facility] Refills 0, Maintenance, [facility], 10/27/21 14:50:00 EDT, Supply Start Date: 10/27/21 Status: Ordered ondansetron 8 mg oral tablet 1 tablet = 8 mg, By Mouth, Every 8 hours, PRN as needed for nausea/vomiting, # 30 tablet, 1 Refills, Maintenance, 11/30/21 8:53:00 EDT, Tablet, [facility] #[id number], Partial fill upon patient request if the prescription is for a schedule II opi... Start Date: 11/30/21 Status: Ordered oxyCODONE 5 mg oral tablet 5 mg, 1, tablet, By Mouth, Every 4 hours, May take via PEG tube. May use half tablet at a time if preferred, # 40 tablet, Refills 0, Tot. Refills 0, Maintenance, 01/01/22 9:49:00 EDT, Route to Pharmacy Electronically, [id number], Par... Start Date: 01/01/22 Status: Ordered prochlorperazine 5 mg oral tablet 1 tablet = 5 mg, By Mouth, Every 6 hours, PRN Nausea & Vomiting, may cause drowsiness, # 30 tablet, 0 Refills, Maintenance, 11/30/21 8:53:00 EDT, [id number], Partial fill upon patient request if the prescription is for a schedule II o... Start Date: 11/30/21 Status: Ordered traMADol 50 mg oral tablet 1 tablet = 50 mg, By Mouth, Every 12 hours, PRN as needed for pain, # 8 tablet, 0 Refills, Maintenance, 11/25/21 14:58:00 EDT, Tablet, [facility] #[id number], Partial fill upon patient request if the prescription is for a schedule II opioid drug.... Start Date: 11/25/21 Status: Ordered Problem List Condition Effective Dates Status Health Status Inform ant Allergic rhinitis(Confirmed) Active OAB (overactive bladder)(Confirmed) Active Chronic kidney disease (CKD) stage G3a/Ax(Confirmed) Active Bochdalek hernia(Confirmed) Active Degenerative lumbar disc(Confirmed) Active Gastrostomy tube dependent(Confirmed) Active Dyslipidemia(Confirmed) Active GERD (gastroesophageal reflu x disease)(Confirmed) Active History of breast cancer ([facility] breast) 1996 S/P umpectomy and radiation(Confirmed) Active Hypertension(Confirmed) Active Nephrolithiasis(Confirmed) Active Malignant neoplasm of tonsil(Confirmed) Active Multiple pulmonary nodules(Confirmed) Active DNR (do not resuscitate)(Confirmed) Active Osteopenia of femoral neck(Confirmed) Active NSAID long-term use(Confirmed) Active Severe obesity(Confirmed) Active Diagnosis Diagnosis Type Effective Dates Health Status Clinical Service Informant Malignant neoplasm of tonsil Discharge Diagnosis 12/27/21 Chronic kidney disease (CKD) stage G3a/Ax Discharge Diagnosis 12/27/21 Hypomagnesemia Discharge Diagnosis 12/27/21 Dyslipidemia Discharge Diagnosis 12/27/21 Hypertension Discharge Diagnosis 12/27/21 Dermatitis Discharge Diagnosis 12/28/21 Multiple pulmonary nodules Discharge Diagnosis 12/28/21 Gastrostomy tube dependent Discharge Diagnosis 12/28/21 Vital Signs Most recent to oldest [Reference Range]: 1 2 Height 154.94 cm (12/28/21 11:02 AM) 154.94 cm (12/28/21 10:31 AM) Weight 99.8 kg (12/28/21 10:31 AM) Oxygen Saturation [94-100 %] 95 % (12/28/21 10:31 AM) Pulse Rate [55-90 bpm] 88 bpm (12/28/21 10:31 AM) Body Mass Index [18.5-24.99] 41.57 *>HHI* (12/28/21 10:31 AM) Blood Pressure [90-138/55-84 mm Hg] 128/ 72mm Hg (12/28/21 11:02 AM) 106/62mm Hg (12/28/21 10:31 AM) Mode of Delivery (Oxygen) Room air (12/28/21 10:31 AM) Blood pressure sites Arm, left (12/28/21 11:02 AM) Arm, left (12/28/21 10:31 AM) Weight Obtained Via Standing scale (12/28/21 10:31 AM) Social History Social History Type Response Smoking Status Former smoker, quit more than 30 days ago; Tobacco use times per day: social smoker; Started at age: 18; Stopped at age: 23; entered on: 06/29/21 Sex
--- OUTSIDE RECORDS SUMMARY | 2024-04-14 23:40 | XMS_ITS | Continuity of Care Document ---
Author Organization [facility] Sergo lt Address [address] [place] [address]- Care Team Providers Care Hand Lens Polisher Name Role Phone Aditya HU, Haley Brownlee Primary Care Physician [phone] Encounter [facility] Date(s): 09/24/21 - 10/24/21 [facility] Adult [address] [place] [address]- Allergies, Adverse Reactions, Alerts No Known Allergies [...] Start Date: 05/04/21 Status: Ordered Fish Oil By Mouth, Daily, 0 Refills, Maintenance, 05/09/18 13:21:40 EST Start Date: 05/09/18 Status: Ordered Multivitamin Daily, 0 Refills, Maintenance, [...] and radiation(Confirmed) Active Hypertension(Confirmed) Active Nephrolithiasis(Confirmed) Active Morbid obesity(Confirmed) Active Multiple pulmonary nodules [...]
--- OUTSIDE RECORDS SUMMARY | 2024-04-14 23:40 | XMS_ITS | Continuity of Care Document ---
Author Organization [facility] Sergo lt Address [address] [place] [address]- Care Team Providers Care Enterostomal Nurse Name Role Phone Aditya Haley HU Primary Care Physician Encounter [facility] [place] Date(s): 09/01/21 - 09/08/21 [facility] Adult [address] [place] [address]- Encounter Diagnosis Morbid obesity(Discharge Diagnosis) - 09/01/21 Skin lesion of back(Discharge Diagnosis) - 09/01/21 Attending Physician: Not on Staff, Attending MD Allergies, Adverse Reactions, Alerts No Known [...] Diagnosis Diagnosis Type Effective Dates Health Status inical Service Informant Morbid obesity Discharge Diagnosis 09/01/21 Skin lesion of back Discharge Diagnosis 09/01/21 Vital Signs Most recent to oldest [Reference Range]: 1 Height 156.0 cm (09/01/21 8:41 AM) Oxygen Saturation [94-100 %] 98 % (09/01/21 8:41 AM) Pulse Rate [55-90 bpm] 81 bpm (09/01/21 8:41 AM) Blood Pressure [90-138/55-84 mm Hg] 126/ 70mm Hg (09/01/21 8:41 AM) Respiratory Rate [16-30 br/min] 16 br/mi n (09/01/21 8:41 AM) Temperature [96.8-100.4 DegF] 98.4 DegF (09/01/21 8:41 AM) Mode of Delivery (Oxygen) Room air (09/01/21 8:41 AM) Blood pressure sites Arm, left (09/01/21 8:41 AM) Temperature Route Oral (09/01/21 8:41 AM) Social History Social History Type Response Smoking Status Former smoker, quit more than 30 days ago; Tobacco use times per day: social smoker; Started at age: 18; Stopped at age: 23; entered on: 06/29/21 Sex
--- OUTSIDE RECORDS SUMMARY | 2024-04-14 23:40 | XMS_ITS | Continuity of Care Document ---
Author Organization [facility] Sergo lt Address [address] [place] [address]- Care Team Providers Care Amortization Schedule Clerk Name Role Phone Aditya Haley HU Primary Care Physician [phone] Encounter [facility] Date(s): 01/27/23 - 02/26/23 [facility] Adult [address] [place] [address]- Allergies, Adverse Reactions, Alerts No Known Allergies Immunizations Given and Recorded Vaccine Date Status Refusal Reason pneumococcal 20-valent conjugate vaccine 1 01/17/23 Given [id number] 12y+ bivalent booster vax 2 04/27/22 Given influenza virus vaccine, inactivated 04/09/22 Carrillo rded influenza virus vaccine, inactivated 02/17/21 Carrillo rded influenza virus vaccine, inactivated 03/23/18 Carrillo rded influenza virus vaccine, inactivated 04/01/17 Carrillo rded influenza virus vaccine, inactivated 03/18/16 Carrillo rded SARS-CoV-2 mRNA ([id number]) vax 09/30/21 Recorded SARS-CoV-2 (COVID-19) mRNA BNT-162b2 [...] pneumococcal 13-valent vaccine 06/20/15 Recorded 1Result Comment: [id number] 2Result Comment: [id number] Medications 1 breast prosthesis and three bras [...] 01/27/23 16:11:00 EDT, Tablet, [facility]), 153, cm, 01/17/23 9:12:00 EDT, Height, 93.3, kg, 09/29/22 15:49:00 EDT, Dry Weight Start Date: 01/27/23 Stop Date: 07/26/23 Status: Ordered omeprazole 20 mg oral enteric coated capsule 1 capsule = 20 mg, By Mouth, Daily, PRN Dyspepsia, # 90 capsule, 0 Refills, Maintenance, 01/31/23 20:54:00 EDT, EC Capsule, [facility]), Partial fill upon patient request [...] Care Nurse Name: Haley Burgess NP Position: [facility] PCO Associate Professional Member Role: PCP Address: Address: [address] [place] [address]- Name: Poornima Martinez RN Position: S RN Member Role: Primary Care Nurse Name: Suhail Duckworth RN Position: [facility] RN Supv Member Role: Primary Care Nurse Name: Katina Samaniego Position: S RN Member Role: Primary Care Nurse Name: Felecia Hernandez RN Position: [facility] Onco RN Member Role: Primary Care Nurse Name: Verito Alonzo RN Position: S RN Member Role: Primary Care Nurse Name: Minh Bryant RN Position: S RN Member Role: Primary Care Nurse Care Team Related Persons Name: ZAINA ROBERSON Address: home [address] [place] [address]
--- OUTSIDE RECORDS SUMMARY | 2024-04-14 23:40 | XMS_ITS | Continuity of Care Document ---
Author Organization [facility] Address [address] [place] [address]- Care Team Providers Care Interpreter Name Role Phone Aditya ARBORISTHaley Primary Care Physician Encounter [facility] [place] Date(s): 03/16/23 - 04/15/23 [facility] [address] [place] [address] Attending Physician: Dena Burroughs Admitting Physician: AdmDena whitfield Referring Physician: Admtr, Ar8 Allergies, Adverse Reactions, Alerts No Known Allergies Immunizations Given and Recorded Vaccine Date Status Refusal Reason pneumococcal 20-valent conjugate vaccine 1 01/17/23 Given [id number] 12y+ bivalent booster vax 2 04/27/22 Given influenza virus vaccine, inactivated 04/09/22 Carrillo rded influenza virus vaccine, inactivated 02/17/21 Carrillo rded influenza virus vaccine, inactivated 03/23/18 Carrillo rded influenza virus vaccine, inactivated 04/01/17 Carrillo rded influenza virus vaccine, inactivated 03/18/16 Carrillo rded SARS-CoV-2 mRNA ([id number]) vax 09/30/21 Recorded SARS-CoV-2 (COVID-19) mRNA BNT-162b2 [...] pneumococcal 13-valent vaccine 06/20/15 Recorded 1Result Comment: [id number] 2Result Comment: [id number] Medications 1 breast prosthesis and three bras [...] 01/27/23 16:11:00 EDT, Tablet, [facility]), 153, cm, 01/17/23 9:12:00 EDT, Height, 93.3, kg, 09/29/22 15:49:00 EDT, Dry Weight Start Date: 01/27/23 Stop Date: 07/26/23 Status: Ordered omeprazole 20 mg oral enteric coated capsule 1 capsule, By Mouth, Daily, PRN NEEDED FOR DYSPEPSIA, # 90 capsule, 1 Refills, Maintenance, 04/05/23 10:51:00 EDT, [facility]), 153, cm, 01/17/23 9:12:00 EDT, [...] Associate Professional Member Role: PCP Address: Address: [address] [place] [id number]- Name: Poornima Martinez RN Position: S RN Member Role: Primary Care Nurse Name: Suhail Duckworth RN Position: S RN Supv Member Role: Primary Care Nurse Name: Holli Ramos RN Position: S RN Member Role: Primary Care Nurse Name: Katina Samaniego Position: [facility] RN Member Role: Primary Care Nurse Name: Felecia Hernandez RN Position: [facility] Onco RN Member Role: Primary Care Nurse Name: Clinton HU, Verito Bustos Position: [facility] PCO Associate Professional Member Role: Primary Care Nurse Address: Address: [address] [place] [address] [place] [address]- Name: Minh Bryant RN Position: [facility] RN Member Role: Primary Care Nurse Care Team Related Persons Name: ZAINA ROBERSON Address: home [address] [place] [address]
--- OUTSIDE RECORDS SUMMARY | 2024-04-14 23:40 | XMS_ITS | Continuity of Care Document ---
Author Organization [facility] ter Address [address] [place] [address]- Care Team Providers Care Message And Delivery Service Pricer Name Role Phone Aditya Haley HU Primary Care Physician Encounter [facility] [place] Date(s): 03/18/22 - 03/18/[address] [address] Discharge Disposition: A-D/C Home Attending Physician: Cory Campbell MD Admitting Physician: Cory Campbell MD Referring Physician: Cory Campbell MD Allergies, Adverse Reactions, Alerts No Known Allergies Immunizations Given and Recorded Vaccine Date Status Refusal Reason SARS-CoV-2 mRNA ([id number]) vax 09/30/21 Recorded SARS-CoV-2 (COVID-19) mRNA BNT-162b2 [...] mL,2 Refills, Maintenance, 12/22/21 14:32:00 EDT, Liquid, [facility][id number], Partial fill upon patient request if the prescription is for a sche... Start Date: 12/22/21 Status: Ordered cetirizine 1 mg/mL oral syrup 10 mL = 10 mg, By Mouth, Daily, PRN Itch, replaces benadryl, # 120 mL, 0 Refills, Maintenance, 12/28/21 10:47:00 EDT, Syrup, [facility] #[id number], 154.94, cm, 12/28/21 10:31:00 EDT, Height, 97.6, kg, 12/23/21 12:27:00 EDT, Dry Weight Start Date: 12/28/21 Stop Date: 01/11/22 Status: Ordered lidocaine-prilocaine 2.5%-2.5% topical cream 1 application, Topically, Once, use 40 min before port access, # 30 Gm, 0 Refills, Soft Stop, 11/30/21 16:17:00 EDT, Cream, [facility] #[id number], Partial fill upon patient request if the [...] Refills 5, Tot. Refills 5, Maintenance, Benadryl [id number]+Nystatin susp(100,000 u/ml)4oz+Visc.Lido2%100ml+Mylanta 8oz. 5-10cc swish+spit/swallow Q2 hr PRN mouth-throat pain., 12/16/21 9:44:00 EDT, Compou... Start Date: 12/16/21 Status: Ordered MiraLax oral powder for reconstitution = 17 Gm, By Mouth, Daily, dissolve in water before taking, # 527 Gm, 1 Refills, Maintenance, 01/01/22 9:53:00 EDT, REC Powder, [facility] #[id number], Partial fill upon patient request if the prescription is for a schedule II opioid drug., 17 Gm... Start Date: 01/01/22 Status: [facility], [facility], 10/27/21 14:50:00 EDT, Supply Start Date: 10/27/21 Status: Ordered omeprazole 2 mg/mL oral suspension 10 mL = 20 mg, By Mouth, Daily, or give through G-tube, # 300 mL, 2 Refills, Maintenance, 01/08/22 13:02:00 EDT, Suspension, [facility] 3, Partial fill upon patient request if the prescription is for a schedule II opioid drug., 154.94, cm,... Start Date: 01/08/22 Status: Ordered ondansetron 4 mg oral tablet, disintegrating 1 tablet = 4 mg, By Mouth, Every 8 hours, PRN as needed for nausea/vomiting, # 30 tablet, 1 Refills, Maintenance, 02/09/22 14:30:00 EDT, DIS Tablet, [facility] #[id number], Patient not tolerating PO. Partial fill upon patient request if the presc... Start Date: 02/09/22 Status: Ordered oxyCODONE 5 mg/5 mL oral solution 5 - 7.5 mL, G Tube, Every 6 hours, PRN Pain , Severe, # 210 mL, 0 Refills, Maintenance, 02/16/22 17:18:00 EDT, Solution, [facility][id number], Partial fill upon patient request if the [...] 1 Refills, Maintenance, 03/18/22 8:35:00 EDT, Tablet, [facility] #[id number], Partial fill upon pa... Start Date: 03/18/22 Status: Ordered Silvadene 1% cream 1 application, Topically, 2 times a day, # 400 Gm, 1 Refills, Acute 04/18/22 13:59:00 EDT, 01/18/2213:59:00 EDT, Cream, [facility] #[id number], Partial fill upon patient request if the [...] Replace Required Details, Route to Pharmacy Electronically, [facility]... Start Date: 02/02/22 Status: Ordered Problem [...] [Reference Range]: 1 2 Height 156 cm (03/18/22 7:51 AM) 156 cm (03/18/22 7:34 AM) Weight 93 kg (03/18/22 7:34 AM) Oxygen Saturation [94-100 %] 100 % (03/18/22 7:51 AM) Pulse Rate [55-90 bpm] 82 bpm (03/18/22 7:51 AM) Blood Pressure [90-138/55-84 mm Hg] 121/ 71mm Hg (03/18/22 7:51 AM) Respiratory Rate [16-30 br/min] 20 br/mi n (03/18/22 7:51 AM) Temperature [96.8-100.4 DegF] 98.2 DegF (03/18/22 7:51 AM) Blood pressure sites Arm, left (03/18/22 7:51 AM) Temperature Route Oral (03/18/22 7:51 AM) Dry Weight 93 kg (03/18/22 7:34 AM) Social History Social History Type Response Smoking Status Former smoker, quit more than 30 days ago; Tobacco use times per day: social smoker; Started at age: 18; Stopped at age: 23; entered on: 06/29/21 Sex Patient Care team information Personnel Name: Haley Burgess NP Address: Address: [address] [place] [address] [place] [address]-
--- OUTSIDE RECORDS SUMMARY | 2024-04-14 23:40 | XMS_ITS | Continuity of Care Document ---
Author Organization [facility]aque[facility] Sergo lt Address [address] [place] [address]- Care Team Providers Care Production Hardener Name Role Phone Ricardo Marie MD Primary Care Physician Encounter [facility] [place] Date(s): 12/27/19 - 01/03/20 [facility] Adult [address] [place] [address]- [facility] Encounter Diagnosis Bilateral knee pain(Discharge Diagnosis) - 12/27/19 Attending Physician: Ricardo Marie MD Allergies, Adverse [...] Daily, # 90 tablet, 3 Refills, Maintenance, 07/12/19 11:11:00 EST, Tablet, [facility], 1 tablet By Mouth Daily, 156, cm, 06/27/19 13:30:00 EST, Height, 117.7, kg, 08/22/18 15:00:00 EST, Dry Weight Start Date: 07/12/19 Status: Ordered fenofibrate 160 mg oral tablet 1 tablet = 160 mg, By Mouth, Daily in AM, # 90 tablet, 1 Refills, Maintenance, 11/27/19 15:53:00 EDT, Tablet, [facility], 156, cm, 06/27/19 13:30:00 EST, Height, 117.7, kg, 08/22/18 15:00:00 EST, Dry Weight Start Date: 11/27/19 Status: Ordered Fish Oil By Mouth, Daily, [...] mg, By Mouth, Daily, # 90 capsule, 3 Refills, Maintenance, 07/20/19 12:33:00 EST, ECCapsule, [facility], d/c tablets, 156, cm, 06/27/19 13:30:00 EST, Height, 117.7, kg, 08/22/18 15:00:00 EST, Dry Weight Start Date: 07/20/19 Status: Ordered oxybutynin 10 mg/24 hr oral [...] Dates Health Status Cl inical Service Informant Bilateral knee pain Discharge Diagnosis 12/27/19 Vital Signs Most recent to oldest [Reference Range]: 1 Height 156.0 cm (12/27/19 12:57 PM) Social History Social History Type Response Smoking Status Former smoker, quit more than 30 days ago; Total pack years: 5; Started at age: 18; Stopped at age: 23; entered on: 08/21/18 Sex
--- OUTSIDE RECORDS SUMMARY | 2024-04-14 23:40 | XMS_ITS | Continuity of Care Document ---
Author Organization [facility] Address [address] [place] [address] [address] [place] [address]- Care Team Providers Care Cement Conveyor Operator Name Role Phone Aditya LIBRARIAN HEAD, Haley Brownlee Primary Care Physician En[place] [facility] [place] Date(s): 10/19/22 - 11/18/[address] [place] [address]- Attending Physician: Dena Burroughs Admitting Physician: AdmDena whitfield Referring Physician: AdmtrDena Allergies, Adverse Reactions, Alerts No Known Allergies Immunizations Given and Recorded Vaccine Date Status Refusal Reason [id number] 12y+ bivalent booster vax 1 04/27/22 Given influenza virus vaccine, inactivated 04/09/22 Carrillo rded influenza virus vaccine, inactivated 02/17/21 Carrillo rded influenza virus vaccine, inactivated 03/23/18 Carrillo rded influenza virus vaccine, inactivated 04/01/17 Carrillo rded influenza virus vaccine, inactivated 03/18/16 Carrillo rded SARS-CoV-2 mRNA ([id number]) vax 09/30/21 Recorded SARS-CoV-2 (COVID-19) mRNA BNT-162b2 vac 03/26/21 Recorded SARS-CoV-2 (COVID-19) mRNA BNT-162b2 vac 08/25/20 Given SARS-CoV-2 (COVID-19) mRNA BNT-162b2 vac 08/04/20 Given Influenza Virus Vaccine (oldterm) 03/19/20 Recorde d Influenza Virus Vaccine (oldterm) 03/17/19 Recorde d zoster vaccine, inactivated 08/05/18 Recorded zoster vaccine, inactivated 03/23/18 Recorded pneumococcal 23-valent vaccine 10/13/17 Recorded pneumococcal 23-valent vaccine 06/20/09 Recorded pneumococcal 13-valent vaccine 10/28/15 Recorded pneumococcal 13-valent vaccine 06/20/15 Recorded Not Given Vaccine Date Status Refusal Reason tetanus-diphtheria toxoids (Td) 06/27/19 Not Given Parent Or Guardian Refuses tetanus-diphtheria toxoids (Td) 01/16/19 Not Given Parent Or Guardian Refuses 1Result Comment: [id number] Medications 1 breast prosthesis and three bras 1 breast prosthesis and three bras, See Instructions, # 4 each, Refills 0, Tot. Refills 0, Maintenance, DX: Breast cancer, 10/29/22 14:22:00 EDT, Supply Start Date: 10/29/22 Status: Ordered acetaminophen 160 mg/5 mL oral liquid 20 mL = 640 mg, By Mouth, 3 times a day, PRN Pain , Mild, Check temperature before using, # 480 mL,2 Refills, Maintenance, 12/22/21 14:32:00 EDT, Liquid, [facility] #[id number], Partial fill upon patient request if the prescription is for a sche... Start Date: 12/22/21 Status: Ordered cevimeline 30 mg oral capsule 1 capsule = 30 mg, By Mouth, 3 times a day, Stop taking Pilocarpine when taking this medication, # 90 capsule, 5 Refills, Maintenance, 06/14/22 11:18:00 EST, Capsule, [facility] #[id number], Partial fill upon patient request if the [...] 1 Refills, Maintenance, 07/16/22 11:49:00 EST, Tablet, [facility] #[id number], 156, cm, 07/14/22 10:10:00 EST, Height, 91.5, [...] Associate Professional Member Role: PCP Address: Address: [address] [place] [id number] Name: Poornima Martinez RN Position: S RN Member Role: Primary Care Nurse Name: Suhail Duckworth RN Position: S RN Supv Member Role: Primary Care Nurse Name: Katina Samaniego Position: [facility] RN Member Role: Primary Care Nurse Name: Felecia Hernandez RN Position: [facility] Onco RN Member Role: Primary Care Nurse Name: Verito Alonzo RN Position: [facility] RN Member Role: Primary Care Nurse Name: Minh Bryant RN Position: [facility] RN Member Role: Primary Care Nurse Care Team Related Persons Name: ZAINA ROBERSON Address: home [address] [place] [id number]
--- OUTSIDE RECORDS SUMMARY | 2024-04-14 23:40 | XMS_ITS | Continuity of Care Document ---
Author Organization [facility] Leonid Sergo lt Address [address] [place] [address]- Care Team Providers Care Word Processing Specialist Name Role Phone Aditya Haley HU Primary Care Physician [phone] Encounter [facility] Date(s): 04/04/23 - 05/04/23 [facility] [address] [place] [address]- Allergies, Adverse Reactions, Alerts No Known Allergies Immunizations Given and Recorded Vaccine Date Status Refusal Reason pneumococcal 20-valent conjugate vaccine 1 01/17/23 Given [id number] 12y+ bivalent booster vax 2 04/27/22 Given influenza virus vaccine, inactivated 04/09/22 Carrillo rded influenza virus vaccine, inactivated 02/17/21 Carrillo rded influenza virus vaccine, inactivated 03/23/18 Carrillo rded influenza virus vaccine, inactivated 04/01/17 Carrillo rded influenza virus vaccine, inactivated 03/18/16 Carrillo rded SARS-CoV-2 mRNA ([id number]) vax 09/30/21 Recorded SARS-CoV-2 (COVID-19) mRNA BNT-162b2 [...] pneumococcal 13-valent vaccine 06/20/15 Recorded 1Result Comment: [id number] 2Result Comment: [id number] Medications 1 breast prosthesis and three bras [...] 01/27/23 16:11:00 EDT, Tablet, [facility]), 153, cm, 01/17/23 9:12:00 EDT, Height, 93.3, kg, 09/29/22 15:49:00 EDT, Dry Weight Start Date: 01/27/23 Stop Date: 07/26/23 Status: Ordered omeprazole 20 mg oral enteric coated capsule 1 capsule, By Mouth, Daily, PRN NEEDED FOR DYSPEPSIA, # 90 capsule, 1 Refills, Maintenance, 04/05/23 10:51:00 EDT, [facility] ([facility]), 153, cm, 01/17/23 9:12:00 [...] Name: Haley Burgess NP Position: [facility] Associate Professional Member Role: PCP Address: Address: [address] [place] [id number] Name: Poornima Martinez RN Position: S RN Member Role: Primary Care Nurse Name: Suhail Duckworth RN Position: S RN Supv Member Role: Primary Care Nurse Name: Holli Ramos RN Position: S RN Member Role: Primary Care Nurse Name: Katina Samaniego Position: S RN Member Role: Primary Care Nurse Name: Felecia Hernandez RN Position: [facility] Onco RN Member Role: Primary Care Nurse Name: Verito Alonzo NP Position: [facility] Associate Professional Member Role: Primary Care Nurse Address: Address: [address] [place] [address] [facility] [place] [address]- Name: Minh Bryant RN Position: [facility] RN Member Role: Primary Care Nurse Care Team Related Persons Name: DAZAINA Address: home [address] [place] [address]
--- OUTSIDE RECORDS SUMMARY | 2024-04-14 23:40 | XMS_ITS | Continuity of Care Document ---
[facility] Address [address] [place] [address]- Care Team Providers Care Vibrator Operator Name Role Phone Cynthia SEGURA, Ricardo Nicole Primary Care Physician Encounter [facility] Date(s): 06/04/20 - 07/04/20 [facility] [place] [address] [place] [address]- Allergies, Adverse Reactions, Alerts Substance Reaction Severity [...]
--- OUTSIDE RECORDS SUMMARY | 2024-04-14 23:41 | XMS_ITS | Continuity of Care Document ---
Author Organization [facility] Address [address] [place] [address]- Care Team Providers Care Maid Cleaning Cooking Name Role Phone Aditya CLEAN ROOM OPERATOR, Haley Brownlee Primary Care Physician [phone] [place] [facility] [place]23 - 12/13/23 [facility] [address] [place] [id number] Discharge Disposition: A-D/C Home Attending Physician: Jordan [...] virus vaccine, inactivated 03/18/16 Carrillo rded SARS-CoV-2(COVID-19)mRNA-LNP vac([id number]) 04/09/23 Recorded pneumococcal 20-valent conjugate vaccine 1 01/17/23 Given [id number] 12y+ bivalent booster vax 2 04/27/22 Given SARS-CoV-2 mRNA (egqqdur-[id number]-zghdp) vax 09/30/21 Recorded SARS-CoV-2 (COVID-19) mRNA BNT-162b2 [...] pneumococcal 13-valent vaccine 06/20/15 Recorded 1Result Comment: [id number] 2Result Comment: [id number] Medications cevimeline 30 mg oral capsule 1 capsule = 30 mg, By Mouth, 3 times a day, # 90 capsule, 5 Refills, Maintenance, 08/13/23 12:25:00EST, Capsule, [facility] #[id number], 153, cm, 07/18/23 10:07:00 EST, Height, 87.6, kg, 04/14/23 15:06:00 EDT, Dry Weight Start Date: 08/13/23 Stop Date: 02/09/24 Status: Ordered fenofibrate 160 mg oral tablet 1 tablet, By Mouth, Daily, # 90 tablet, 0 Refills, Maintenance, 11/16/23 8:29:00 EDT, [facility], 154, cm, 10/13/23 14:03:00 EDT, Height, 95.2, kg, 10/13/23 14:03:00 EDT, Dry Weight Start Date: 11/16/23 Status: Ordered omeprazole 20 mg oral enteric coated capsule 1 capsule, By Mouth, Daily, PRN NEEDED FOR DYSPEPSIA, # 90 capsule, 0 Refills, Maintenance, 11/16/23 8:29:00 EDT, [facility], 154, cm, 10/13/23 14:03:00 EDT, Height, 95.2, kg, 10/13/23 14:03:00 EDT, Dry Weight Start Date: 11/16/23 Status: Ordered PreviDent 5000 Enamel Protect 1.1%-5% topical paste 1 application, Topically, 2 times a day, rinse and spit; do not swallow, # 100 mL, 6 Refills, Maintenance, 04/14/23 18:52:00 EDT, Paste, [facility]/pharmacy #[id number], Partial fill upon patient request [...] recent to oldest [Reference Range]: 1 Height 154 cm (10/13/23 2:03 PM) Weight 95.2 kg (10/13/23 2:03 PM) Oxygen Saturation [94-100 %] 97 % (10/13/23 2:03 PM) Pulse Rate [55-90 bpm] 101 bpm *H* (10/13/23 2:03 PM) Body Mass Index [18.5-24.99 kg/m2] 40.14 kg/m2 *>HHI* (10/13/23 2:03 PM) Blood Pressure [90-138/55-84 mm Hg] 143/ 81mm Hg *H* (10/13/23 2:03 PM) Temperature [96.8-100.4 DegF] 97.6 DegF (10/13/23 2:03 PM) Mode of Delivery (Oxygen) Room air (10/13/23 2:03 PM) Blood pressure sites Arm, left (10/13/23 2:03 PM) Temperature Route Temporal (10/13/23 2:03 PM) Dry Weight 95.2 kg (10/13/23 2:03 PM) Weight Obtained Via Standing scale (10/13/23 2:03 PM) Dry Weight Obtained Via Standing scale (10/13/23 2:03 PM) Social History Social History Type Response Smoking Status Former smoker, quit more than 30 days ago; Tobacco use times per day: social smoker; Started at age: 18; Stopped at age: 23; entered on: 06/29/21 Sex Patient Care team information Care Team Personnel Name: Camille Mathew RN Position: S RN Member Role: Primary Care Nurse Name: Haley Burgess NP Position: [facility] Associate Professional Member Role: PCP Address: Address: [address] [facility] [place], [facility] [place] [address]- [place] Name: Poornima Martinez RN Position: [facility] RN Member Role: Primary Care Nurse Name: Suhail Duckworth RN Position: [facility] RN Supv Member Role: Primary Care Nurse Name: Holli Ramos RN Position: [facility] RN Member Role: Primary Care Nurse Name: Katina Samaniego RN Position: [facility] RN Member Role: Primary Care Nurse Name: Felecia Hernandez RN Position: [facility] Onco RN Member Role: Primary Care Nurse Name: Verito Alonzo NP Position: [facility] Associate Professional Member Role: Primary Care Nurse Address: Address: [address] [place] [address] [place] [address]- [place] Name: Minh Bryant RN Position: [facility] RN Member Role: Primary Care Nurse Care Team Related Persons Name: ZAINA ROBERSON Address: home [address] [place] [address]
--- OUTSIDE RECORDS SUMMARY | 2024-04-14 23:41 | XMS_ITS | Continuity of Care Document ---
Author Organization [facility] Sergo lt Address [address] [place] [address]- Care Team Providers Care Mounter Flutes And Piccolos Name Role Phone Haley Burgess NP Primary Care Physician Encounter [facility] Date(s): 07/14/22 - 07/21/22 [facility] Adult [address] [place] [address]- Encounter Diagnosis Annual physical exam(Discharge Diagnosis) - 07/14/22 Chronic kidney disease (CKD) stage G3a/Ax(Discharge Diagnosis) - 07/14/22 Dyslipidemia(Discharge Diagnosis) - 07/14/22 Malignant neoplasm of tonsil(Discharge Diagnosis) - 07/14/22 Severe obesity (BMI 35.0-39.9) with comorbidity(Discharge Diagnosis) - 07/14/22 Osteopenia of femoral neck(Discharge Diagnosis) - 07/14/22 GERD (gastroesophageal reflux disease)(Discharge Diagnosis) - 07/14/22 History of breast cancer (right breast) 1997 S/P umpectomy and radiation (Discharge Diagnosis) - 07/14/22 Multiple pulmonary nodules(Discharge Diagnosis) - 07/14/22 Attending Physician: Haley Burgess NP Referring Physician: Austin Mcneal MD Allergies, Adverse Reactions, Alerts No Known Allergies Immunizations Given and Recorded Vaccine Date Status Refusal Reason [id number] 12y+ bivalent booster vax 1 04/27/22 Given influenza virus vaccine, inactivated 04/09/22 Carrillo rded influenza virus vaccine, inactivated 02/17/21 Carrillo rded influenza virus vaccine, inactivated 03/23/18 Carrillo rded influenza virus vaccine, inactivated 04/01/17 Carrillo rded influenza virus vaccine, inactivated 03/18/16 Carrillo rded SARS-CoV-2 mRNA ([id number]) vax 09/30/21 Recorded SARS-CoV-2 (COVID-19) mRNA BNT-162b2 [...] Given Parent Or Guardian Refuses 1Result Comment: [id number] Medications acetaminophen 160 mg/5 mL oral liquid 20 mL = 640 mg, By Mouth, 3 times a day, PRN Pain , Mild, Check temperature before using, # 480 mL,2 Refills, Maintenance, 12/22/21 14:32:00 EDT, Liquid, [facility] #[id number], Partial fill upon patient request if the prescription is for a sche... Start Date: 12/22/21 Status: Ordered cevimeline 30 mg oral capsule 1 capsule = 30 mg, By Mouth, 3 times a day, Stop taking Pilocarpine when taking this medication, # 90 capsule, 5 Refills, Maintenance, 06/14/22 11:18:00 EST, Capsule, [facility] #[id number], Partial fill upon patient request if the prescription i... Start Date: 06/14/22 Stop Date: 12/11/22 Status: Ordered fenofibrate 160 mg oral tablet 1 tablet = 160 mg, By Mouth, Daily, # 90 tablet, 1 Refills, Maintenance, 07/16/22 11:49:00 EST, Tablet, [facility] #[id number], 156, cm, 07/14/22 10:10:00 EST, Height, 91.5, kg, 06/08/22 10:54:00 EST, Dry Weight Start Date: 07/16/22 Stop Date: 01/12/23 Status: Ordered lidocaine-prilocaine 2.5%-2.5% topical cream 1 application, Topically, Once, use 40 min before port access, # 30 Gm, 0 Refills, Soft Stop, 11/30/21 16:17:00 EDT, Cream, [facility] #[id number], Partial fill upon patient request if the prescription is for a schedule II opioid drug., 1 applica... Start Date: 11/30/21 Status: Ordered omeprazole 20 mg oral enteric coated capsule 1 capsule = 20 mg, By Mouth, Daily, PRN Dyspepsia, Maintenance, 05/11/22 11:55:00 EST, [facility] Capsule Start Date: 05/11/22 Status: Ordered Problem List [...] obesity (BMI 35.0-39.9) with comorbidity Confirmed Active Diagnosis Diagnosis Type Effective Dates Health Status Clinical Service Informant Annual physical exam Discharge Diagnosis 07/14/22 Chronic kidney disease (CKD) stage G3a/Ax Discharge Diagnosis 07/14/22 Dyslipidemia Discharge Diagnosis 07/14/22 Malignant neoplasm of tonsil Discharge Diagnosis 07/14/22 Severe obesity (BMI 35.0-39.9) with comorbidity Discharge Diagnosis 07/14/22 Osteopenia of femoral neck Discharge Diagnosis 07/14/22 GERD (gastroesophageal reflux disease) Discharge Diagnosis 07/14/22 History of breast cancer (right breast) 1996 S/P umpectomy and radiation Discharge Diagnosis 07/14/22 Multiple pulmonary nodules Discharge Diagnosis 07/14/22 Vital Signs Most recent to oldest [Reference Range]: 1 Height 156 cm (07/14/22 10:10 AM) Weight 94.3 kg (07/14/22 10:10 AM) Oxygen Saturation [94-100 %] 97 % (07/14/22 10:10 AM) Pulse Rate [55-90 bpm] 77 bpm (07/14/22 10:10 AM) Body Mass Index [18.5-24.99 kg/m2] 38.75 kg/m2 *>HHI* (07/14/22 10:10 AM) Blood Pressure [90-138/55-84 mm Hg] 115/ 57mm Hg (07/14/22 10:10 AM) Respiratory Rate [16-30 br/min] 16 br/mi n (07/14/22 10:10 AM) Temperature [96.8-100.4 DegF] 97.9 DegF (07/14/22 10:10 AM) Mode of Delivery (Oxygen) Room air (07/14/22 10:10 AM) Blood pressure sites Arm, left (07/14/22 10:10 AM) Temperature Route Oral (07/14/22 10:10 AM) Weight Obtained Via Standing scale (07/14/22 10:10 AM) Social History Social History Type Response Smoking Status Former smoker, quit more than 30 days ago; Tobacco use times per day: social smoker; Started at age: 18; Stopped at age: 23; entered on: 06/29/21 Sex Note * Aide Lopez: PERFORM, SIGN, VERIFY Event Display: Patient Education/Instruction Authored Date: [id number] [facility] *LIZZY So Leonid Ludwig Clinical Summary Name OBINNA RIOS Age 77 Years 1945 PCP Haley Burgess NP PCP [facility]# [id number] Visit Date 07/14/2022 10:05:00 Additional Instructions: Scheduled Appointments?? Future Appointments [address]??[place],??[place],??[address] ?Phone:??[phone]?Fax:??-- ?Appt. Date:??09/02/2022?12:15 PM ?Scheduled Provider:??[address] CT 2 Follow-Up Instructions ?? With: Address: When: Aditya HU, Haley Brownlee In 6 months Diagnosis Morbid (severe) obesity due to excess calories; Chronic kidney disease, stage 3a; Encounter for general adult medical examination without abnormal findings; Other specified disorders of bone density and structure, unspecified thigh; Malignant neoplasm of tonsil, unspecified; Hyperlipidemia, unspecified Medications: Please continue your medications until treatment is completed or stopped by your provider. Discuss any questions related to medications with your provider. Medications to Continue Taking That Have Changed These medications were not printed or sent to your pharmacy - Omeprazole (omeprazole 20 mg oral enteric coated capsule) 1 capsule Oral Daily as needed Dyspepsia. Next Dose: Medications to Continue with No Changes These medications were not printed or sent to your pharmacy Acetaminophen (acetaminophen 160 mg/5 mL oral liquid) 20 Milliliter Oral 3 times a day as needed Pain , Mild. Check temperature before using. Refills: 2. Next Dose: Cevimeline (cevimeline 30 mg oral capsule) 1 capsule Oral 3 times a day for 30 Days. Stop taking Pilocarpine when taking this medication. Refills: 5. Next Dose: Fenofibrate (fenofibrate 160 mg oral tablet) Next Dose: Lidocaine/Prilocaine Topical (lidocaine-prilocaine 2.5%-2.5% topical cream) 1 aminah Topically once. use 40 min before port access. Refills: 0. Next Dose: Allergy Info:?? NKA Medications Given This Visit Future Orders ?No future orders Vital Signs Height 156 cm Weight 94.3 kg BMI 38.75 kg/m2 Blood Pressure 115 mm Hg/57 mm Hg Temperature 97.9 DegF Pulse Rate 77 bpm Respiratory Rate 16 br/min 02 Sat Mode of Delivery 97 %/Room air You can now view a summary of your hospital visit from the comfort of your home through a free online portal called aWhere. aWhere is a website that allows you to securely view your medical information including discharge summary, medications and follow-up visits. ??You can alsosend a secure electronic message to your doctor???s office to request appointments, renew medications or just ask a question. You can enroll at [email or web address] or register during your next office visit. [...] primary care provider, you may find a [facility] provider by calling [facility] at [phone]. For information about the plan of care including goals and instructions for your diagnosis, please see the patient education orders section of this document. Patient Education Materials?? The content of this educational material or handout may have been modified, supplemented, or adapted from its original content and format to support your individualized medical care. Prevention Guidelines, Women Ages 65 and Older Screening tests and vaccines are an important part of managing your health. Health counseling is essential, too. Below are guidelines for these, for women ages 65 and older. Talk with your healthcareprovider to make sure you???re up to date on what you need. Screening Who needs it How often Type 2 diabetes or prediabetes All adults beginning at age 45 and adults without symptoms at any age who are overweight or obese and have 1 or more additional risk factors for diabetes At least every 3 years Alcohol misuse All women in this age group At routine exams Blood pressure All women in this age group Every 2 years if your blood pressure is less than 120/80 mm Hg; yearly if your systolic blood pressure is 120 to 139 mm Hg, or your diastolic blood pressure reading is 80 to 89 mm Hg Breast cancer All women in this age group Yearly mammogram and clinical breast exam1 Cervical cancer Only women who had abnormal screening results before age 65 Talk with your healthcare provider Chlamydia Women at increased risk for infection At routine exams Colorectal cancer All women in this age group1 Flexible sigmoidoscopy every 5 years, or colonoscopy every 10 years, or double- contrast barium enema every 5 years; yearly fecal occult blood test or fecal immunochemical test; or a stool DNA test asoften as your healthcare provider advises; talk with your healthcare provider about which tests arebest for you Depression All women in this age group At routine exams Gonorrhea Sexually active women at increased risk for infection At routine exams Hepatitis C Anyone at increased risk; 1 time for those born between 1945 and 1965 At routine exams High cholesterol or triglycerides All women in this age group who are at risk for coronary artery disease At least every 5 years HIV Women at increased risk for infection ??? talk with your healthcare provider At routine exams Lung cancer Adults age 55 to 80 who have smoked Yearly screening in smokers with 30 pack-year history of smoking or who quit within 15 years Obesity All women in this age group At routine exams Osteoporosis All women in this age group Bone density test at age 65, then follow-up as advised by your healthcare provider Syphilis Women at increased risk for infection ??? talk with your healthcare provider At routine exams Thyroid-Stimulating Hormone (TSH) All women in this age group Every 5 years Tuberculosis Women at increased risk for infection ??? talk with your healthcare provider Ask your healthcare provider Vision All women in this age group Every 1 to 2 years; if you have a chronic health condition, ask your healthcare provider if you need exams more often Vaccine Who needs it How often Chickenpox (varicella) All women in this age group who have no record of this infection or vaccine 2 doses; second dose should be given at least 4 weeks after the first dose Hepatitis A Women at increased risk for infection ??? talk with your healthcare provider 2 doses given 6 months apart Hepatitis B Women at increased risk for infection ??? talk with your healthcare provider 3 doses over 6 months; second dose should be given 1 month after the first dose; the third dose should be given at least 2 months after the second dose and at least 4 months after the first dose Haemophilus influenza??Type B (HIB) Women at increased risk for infection ??? talk with your healthcare provider 1 to 3 doses Influenza (flu) All women in this age group Once a year Pneumococcal??conjugate vaccine (PCV13)??and pneumococcal polysaccharide??vaccine (PPSV23) All women in this age group 1 dose of each vaccine Tetanus/diphtheria/pertussis (Td/Tdap) booster All women in this age group Td every 10 years, or a one-time dose of Tdap instead of a Td booster after age 18, then Td every 10 years Zoster All women in this age group 1 dose Counseling Who needs it How often Diet and exercise Women who are overweight or obese When diagnosed, and then at routine exams Fall prevention (exercise and vitamin D supplements) All women in this age group At routine exams Sexually transmitted infection prevention Women at increased risk for infection ??? talk with your healthcare provider At routine exams Use of daily aspirin Women ages 55 and up in this age group who are at risk for cardiovascular health problems such as stroke When your risk is known Use of tobacco and the health effects it can cause All women in this age group Every exam 1[employer] ?? [phone] [employer]. [address] [place] [address], [place] [address]. All rights reserved. This information is not intended as a substitute for professional medical care. Always follow your healthcare professional's instructions. Patient Care team information Care Team Personnel Name: Camille Mathew RN Position: [facility] RN Member Role: Primary Care Nurse Name: Haley Burgess NP Position: [facility] PCO Associate Professional Member Role: PCP Address: Address: [address] [place] [id number] Name: Suhail Duckworth RN Position: [facility] RN Supv Member Role: Primary Care Nurse Name: Holli Ramos RN Position: S RN Member Role: Primary Care Nurse Name: Felecia Hernandez RN Position: [facility] Onco RN Member Role: Primary Care Nurse Name: Verito Alonzo RN Position: S RN Member Role: Primary Care Nurse Name: Minh Bryant RN Position: [facility] RN Member Role: Primary Care Nurse Care Team Related Persons Name: AZINA ROBERSON Address: home [address] [place] [id number]
--- OUTSIDE RECORDS SUMMARY | 2024-04-14 23:41 | XMS_ITS | Continuity of Care Document ---
Author Organization [facility] ter Address [address] [place] [address]- Care Team Providers Care Scientist Engineer Name Role Phone Aditya Haley HU Primary Care Physician [phone] Encounter [facility] Date(s): 08/30/23 - 08/30/[address] [address]- Discharge Disposition: A-D/C Home Attending Physician: Presley Nassar MD Admitting Physician: Presley Nassar MD Referring Physician: Presley Nassar MD Allergies, Adverse Reactions, Alerts No Known Allergies Immunizations Given and Recorded Vaccine Date Status Refusal Reason influenza virus vaccine, inactivated 04/09/23 Carrillo rded influenza virus vaccine, inactivated 04/09/22 Carrillo rded influenza virus vaccine, inactivated 02/17/21 Carrillo rded influenza virus vaccine, inactivated 03/23/18 Carrillo rded influenza virus vaccine, inactivated 04/01/17 Carrillo rded influenza virus vaccine, inactivated 03/18/16 Carrillo rded SARS-CoV-2(COVID-19)mRNA-LNP vac([id number]) 04/09/23 Recorded pneumococcal 20-valent conjugate vaccine 1 01/17/23 Given [id number] 12y+ bivalent booster vax 2 04/27/22 Given SARS-CoV-2 mRNA (brwxnlp-msny-fppyk) vax 09/30/21 Recorded SARS-CoV-2 (COVID-19) mRNA BNT-162b2 [...] pneumococcal 13-valent vaccine 06/20/15 Recorded 1Result Comment: [id number] 2Result Comment: [id number] Medications 1 breast prosthesis and three bras [...] Maintenance, 04/05/23 10:51:00 EDT, [facility]), 153, cm, 01/17/23 9:12:00 EDT, Height, 93.3, kg, 09/29/22 15:49:00 EDT, Dry Weight Start Date: 04/05/23 Status: Ordered PreviDent 5000 Enamel Protect 1.1%-5% topical paste 1 application, Topically, 2 times a day, rinse and spit; do not swallow, # 100 mL, 6 Refills, Maintenance, 04/14/23 18:52:00 EDT, Geraldine, [id number], Partial fill upon patient request if the [...] Active 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 dilation performed 08/30/23 Completed Vital Signs Most recent to oldest [Reference Range]: 1 2 3 Height 154 cm (08/30/23 6:59 AM) Weight 90 kg (08/30/23 6:59 AM) Oxygen Saturation [94-100 %] 97 % (08/30/23 8:05 AM) 96 % (08/30/23 7:59 AM) 94 % (08/30/23 7:55 AM) Pulse Rate [55-90 bpm] 81 bpm (08/30/23 6:59 AM) Body Mass Index [18.5-24.99 kg/m2] 37.95 kg/m2 *>HHI* (08/30/23 6:59 AM) Blood Pressure [90-138/55-84 mm Hg] 141/75mm Hg *H* (08/30/23 8:05 AM) 134/67mm Hg (08/30/23 7:59 AM) 144/65mm Hg *H* (08/30/23 7:55 AM) Respiratory Rate [16-30 br/min] 15 br/min *L* (08/30/23 8:05 AM) 21 br/min (08/30/23 7:59 AM) 27 br/min (08/30/23 7:55 AM) Temperature [96.8-100.4 DegF] 97.7 DegF (08/30/23 6:59 AM) Mode of Delivery (Oxygen) Room air (08/30/23 8:05 AM) Room air (08/30/23 7:59 AM) Room air (08/30/23 7:55 AM) Temperature Route Femoral (08/30/23 6:59 AM) Social History Social History Type Response Smoking Status Former smoker, quit more than 30 days ago; Tobacco use times per day: social smoker; Started at age: 18; Stopped at age: 23; entered on: 06/29/21 Sex Clinical Note * Event Display: GG EGD Please click on pdf link to open report Note * Megan Arizmendi RN: PERFORM Event Display: Discharge/Transfer Note Hospital Authored Date: [id number] Nursing Discharge Note Entered On: 08/30/2023 8:10 EDT Performed On: 08/30/2023 8:10 EDT by Megan Arizmendi RN Nursing Discharge Note 2 Discharge Time : 08/30/2023 8:30 EDT Megan Arizmendi RN - 08/30/2023 8:30 EDT Discharge Level of Care at Discharge : Home/Longterm/Foster Care Patient Left Unit Via : Wheelchair Patient Accompanied Off Unit with : Responsible adult DC Instructions Provided & Signed by Pt : Yes Patient Understands D/C Instructions : Yes Patient Instructions Discharge Signed : Yes Did Pt have Specialty Bed or Wound Vac : No Megan Arizmendi RN - 08/30/2023 8:10 EDT * Megan Arizmendi RN: PERFORM Event Display: Patient Education/Instruction Authored Date: [id number] Surgery Adult Discharge Instructions [address] [address] Name: OBINNA RIOS : 1945?? Visit: 08/30/2023 06:23?? Current Date: 08/30/2023 08:15 ?? Account: [id number]?? Surgery Discharge Instructions We would like to thank [...] and their families. Surveys are administered by [employer] ?? If further treatment with your primary care physician or another doctor is recommended, it is important for you to keep the appointment. Call your primary care physician or return to the Emergency Department immediately if your condition worsens, fails to improve, or new symptoms develop. If you need to find a doctor, you can call [facility] NurseBuddy for a referral at [phone] or toll free at [phone]) or log in to [email or web address].. ?? [facility], in keeping with [facility] guidance, no longer requires face masks for staff, patientsor visitors in most situations. Similiar to time spent indoors at other locations, there is the chance that you were exposed to repiratory viruses during your time with us (such as flu or COVID-19). If you develop symptoms concerning for a viral respiratory infection, please seek testing (and treatment if indicated) from your medical provider or home test kit. ?? You can view and manage your care through the patient portal or by using a health care aminah of your choosing. [employer] is a website that allows you to securely view your medical information including your hospital discharge summary, office visit summaries, medications and follow-up visits. You can also request appointments, renew medications, and request access to your medical information using a health care aminah of your choosing, or just ask a question. You are entitled to know the individuals who participated in your treatment. This information is available within your medical record and will be provided upon your request. You can enroll at [email or web address] or register d uring your next office visit. You have been discharged from [facility], Patient Care Unit: ENDO??. If you have any questions regarding these instructions after you leave, please call us and we will be happy to assist you. [facility] Your Care Team Attending Physician Presley Nassar MD?? Reason for Admission ESOPH DILATION Primary Care Provider Aditya HU, Haley Brownlee? Advance Directive Health Care Proxy on File Yes - Health Care Proxy Yes - MOLST What to do next Instructions From Your Doctor ?? Orders?? You Need to Schedule the Following Appointments Follow Up with??Follow up with primary care physician as needed Follow Up with??Haley Burgess When:??In 0 days Discharge Medications OBINNA RIOS :1945 Visit Date:08/30/2023 Medications: Please continue your medications until treatment is completed or stopped by your provider. You may resume your daily prescription medications. Discuss any questions related to medications with your provider. What How Much When Instructions Next Dose Unchanged Cevimeline (cevimeline 30 mg oral capsule) 1 capsule Oral 3 times a day Duration: 30 Days Unchanged Durable Medical Equipment (1 breast prosthesis and three bras) See instructions DX: Breast cancer ?? Unchanged Fenofibrate (fenofibrate 160 mg oral tablet) 1 tab(s) Oral Daily Unchanged fluoride-potassium nitrate topical (PreviDent 5000 Enamel Protect 1.1%-5% topical paste) 1 aminah Topically Twice a day Duration: 60 Days rinse and spit; do not swallow ?? Unchanged Omeprazole (omeprazole 20 mg oral enteric coated capsule) 1 capsule Oral Daily as needed for NEEDED FOR DYSPEPSIA Allergies (NKA means No Known Allergies) NKA Education Materials Below is the list of Educational Leaflet Providered with your Discharge Instructions. [employer] Patient Education - Surgery Medical Daystay Surgical Overnight Discharge Instructions?? [employer] Patient Education - Diverticulosis Discharge Instructions?? Valuables and Belongings I fully understand and agree that [facility] accepts no responsibility for all my personal [...] encouraged to send valuables and belongings home. ? Other Discharge Information ? Case Management Discharge Plan?? Discharge Plan?? Discharge Level of Care at Discharge: Home/Longterm/Foster Care ?? Pulmonary Rehab Status?? Pulmonary Rehab Discharge Status?? Respiratory Rate:??15 br/min??Low ? Common Emergency Awareness Tips IS IT [...] are strongly encouraged to quit. Please call [employer] at [phone] or [phone] ([phone]) or log in to [email or web address] for referrals to smoking cessation programs. ?? The National Suicide Prevention Hotline is available 10/01 if you or someone you know needs to find a reason to keep living. By calling 7-329-386-Proofpoint (4830) you'll be connected to a skilled, trained counselor at a crisis center in your area. SURGERY DISCHARGE INSTRUCTIONS SIGNATURE PAGE OBINNA RIOS Location:[facility] Registration Date and Time:08/30/2023 06:23 EDT Primary Care Physician: Haley Burgess NP, Attending Physician: Presley Nassar MD, I OBINNA RIOS, have received the above patient education materials/instructions and have verbalized understanding. If ambulance or transport services are being used I further acknowledge being given a choice of service. ?? If you need to contact me, please call me at this number: . Patient/Veneer Clipper Helper Name: Patient/Veneer Clipper Helper Signature: Relationship to Patient: Witness Name/Signature: Date: * Megan Arizmendi RN: PERFORM, SIGN, VERIFY Event Display: Patient Education Handout Authored Date: [id number] * Megan Arizmendi RN: PERFORM Event Display: Patient Education Leaflets Authored Date: [id number] Surgery Medical Daystay Surgical Overnight Discharge Instructions ?? 295 Medical Daystay/Surgical Overnight Discharge Instructions ? Since your coordination and judgment may be altered by medication and/or anesthesia, a responsible adult must drive you home from the hospital. ? If you have received medication for pain or sedation while under our care, you should not drive, operate machinery, drink alcohol, or sign any legal documents for 24 hours.?? You should have someone with you at home tonight. ? Remain at home the day of discharge.?? You may be up and about unless otherwise instructed by your physician. ? You may resume your daily prescription medication schedule.?? Any depressant medication should be avoided for 24 hours unless otherwise instructed by your surgeon or anesthesiologist. ? Call your physician for a follow-up appointment.? If you experience unusual or severe pain not relied by your pain medication, excessive bleedingor drainage, persistent nausea and vomiting, excessive swelling or redness, foul odor from incisionsite or fever over 100.6F, you need to call your physician. ? A follow-up phone call by a nurse will be made the day after your procedure.?? If you have stayed with us over night, you will not be receiving a follow-up phone call. ? Nausea and vomiting are a common side effect of prescription pain medication.?? We recommend that pills are not taken on an empty stomach.?? While taking any prescription pain medication you should not drive or drink alcohol. ? * Megan Arizmendi RN: PERFORM Event Display: Patient Education Leaflets Authored Date: [id number] Diverticulosis Discharge Instructions ?? 680 Diverticulosis Discharge Instructions ??You must carefully read the Consumer Information Use and Disclaimer below in order to understand and correctly use this information?About this topicDiverticulosis is a problem of the large bowel or colon. The wall of the bowel becomes weak and pushes outward. They form balloon-like pouches called diverticula or tics. When you have hard stool, you strain to have a bowel movement. This raises the pressure in the bowel and causes pouches or bulges to form. Most often, they do not cause a problem. If they become infected, you have diverticulitis. If you have both bleeding and infection, it is diverticular disease.??What care is needed at home? Ask your doctor what you need to do when you go home. Make sure??you ask questions if you do not understand what the doctor says. ??? Eat more whole grains, vegetables, and fruits. ??? Do not wait to have a bowel movement. Go as soon as you have the??urge. ??? Drink 8 to 10 glasses of water each day. Talk to your doctor if you are??drinking less fluids due to a health problem. ??? Be active. Walk,garden, or do something active for 30 minutes or more on most days of the week. ??What follow-up care is needed?Your doctor may ask you to make visits to the office to check on your progress. Be sure to keep these visits.??What drugs may be needed?Most often with diverticulosis you will not need to take any drugs.??Will physical activity be limited?When you are in pain, you may need to rest in bed. To ease the pain, use a heat compress on your belly. This should last only for a few days.??What changes to diet are needed?Talk to your doctor about any changes you need to make to your diet.? You do not need to avoid seeds, nuts, corn, or other similar foods. ??? You will need to eat food rich in fiber and drink more water. o Eat 5 or more servings of fresh fruits and vegetables every day. o Eat 6 or more servings of whole-wheat grain breads and??cereals. ??? Try toget 25 to 30 grams of fiber every day. Read the labels to??learn how much fiber is in foods. ??? Donot drink coffee, tea, or beer, wine, and mixed drinks (alcohol). ??What problems could happen?You may develop diverticulitis, which may cause:? Pockets or pouches in your bowel may be infected or filled with pus. ??? Hole or tear in your bowel ??? Part of your bowel to become narrow ??? You to need surgery ??What can be done to prevent this health problem?The best way to keep from having diverticulosis is to keep your bowel movements soft and normal. To keep more pouches from forming:? Talk with your doctor about adding an gpkt-vyh-fwcpmnd (OTC) fiber??product to keep your stools soft. ??? Limithow much pain drugs you take. Overuse of some pain drugs can??cause hard stools; talk with your doctor. ??? When do I need to call the doctor? Signs of infection. These include a fever of 100.4??F (38??C) or higher,??chills. ??? Mild pain or cramping in the lower part of the belly ??? A feelingof bloating in the belly ??? Belly pain that gets worse ??? Blood in your stool ??? Upset stomach or throwing up ??? Stools get too loose or too hard ??? Long-term hard stools ??Teach Back: Helping You UnderstandThe Teach Back Method helps you understand the information we are giving you. After you talk with the staff, tell them in your own words what you learned. This helps to make sure the staff has described each thing clearly. It also helps to explain things that mayhave been confusing. Before going home, make sure you are able to do these:? I can tell you abo ut my condition. ??? I can tell you what changes I need to make with my diet or drugs. ??? I can tell you what I will do if I have pain or cramping in my lower belly??or I have more belly pain. ??Where can I learn more???FamilyDoctor.orghttp://familydoctor.org/familydoctor/en/diseases-conditio ns/div erticular-disease.htmlNHShttps://www.nhs.uk/conditions/crxnmrjdbesi-rtvrloh-vgc- diverticulitis/LastReviewed Basp5760-44-13Mahpdzkg Information Use and Disclaimer:This generalized information is a limited summary of diagnosis, treatment, and/or medication information. It is not meant to be comprehensive and should be used as a tool to help the user understand and/or assess potential diagnostic and treatment options. It does NOT include all information about conditions, treatments, medications, side effects, or risks that may apply to a specific patient. It is not intended to be medical adviceor a substitute for the medical advice, diagnosis, or treatment of a health care provider based on the health care provider's examination and assessment of a patient???s specific and unique circumstances. Patients must speak with a health care provider for complete information about their health, medical questions, and treatment options, including any risks or benefits regarding use of medications. This information does not endorse any treatments or medications as safe, effective, or approved for treating a specific patient. [employer] and its affiliates disclaim any warranty or liabilityrelating to this information or the use thereof. The use of this information is governed by the Terms of Use, available at??https://www.Shout.CourseHorse/en/know/dibkjxie-pnfybqmxmlwjd-vvbkbXiln Updat ed 08/12/21? Patient Care team information Care Team Personnel Name: Camille Mathew RN Position: S RN Member Role: Primary Care Nurse Name: Haley Burgess NP Position: [facility] PCO Associate Professional Member Role: PCP Address: Address: [address] [place] [address] Name: Poornima Martinez RN Position: S RN Member Role: Primary Care Nurse Name: Suhail Duckworth RN Position: S RN Supv Member Role: Primary Care Nurse Name: Holli Ramos RN Position: S RN Member Role: Primary Care Nurse Name: Katina Samaniego Position: [facility] RN Member Role: Primary Care Nurse Name: Felecia Hernandez RN Position: [facility] Onco RN Member Role: Primary Care Nurse Name: Verito Alonzo NP Position: [facility] Associate Professional Member Role: Primary Care Nurse Address: Address: [address] [place] [address] [facility] [place] [address]- Name: Minh Bryant RN Position: [facility] RN Member Role: Primary Care Nurse Care Team Related Persons Name: ZAINA ROBERSON Address: home [address] [place] [address]
--- OUTSIDE RECORDS SUMMARY | 2024-04-14 23:41 | XMS_ITS | Continuity of Care Document ---
Author Organization [facility] Sergo lt Address [address] [place] [address]- Care Team Providers Care Sliver Chopper Name Role Phone Aditya Haley HU Primary Care Physician [phone] Encounter [facility] Date(s): 07/20/21 - 08/19/21 [facility] [address] [place] [address]- Allergies, Adverse Reactions, Alerts No Known Allergies [...] Not Given Parent Or Guardian Refuses Medications Aleve = 440 mg, By Mouth, Every 12 hours, 0 Refills, Maintenance, 06/24/21 23:20:00 EST Start Date: 06/24/21 Status: Ordered aspirin 81 mg oral tablet 1 tablet [...] Daily, # 90 capsule, 0 Refills, Maintenance, 06/06/21 14:37:00 EST, [facility], 156, cm, 12/27/19 12:57:00 EDT, Height Start Date: 06/06/21 Status: Ordered oxybutynin 10 mg/24 hr oral [...]
--- OUTSIDE RECORDS SUMMARY | 2024-04-14 23:41 | XMS_ITS | Continuity of Care Document ---
Author Organization [facility] ter Address [address] [place] [address]- Care Team Providers Care Director Of Outpatient Services Name Role Phone Aditya Haley HU Primary Care Physician Encounter [facility] [place] Date(s): 12/24/21 - 01/23/[address] [address] Attending Physician: Not on Staff, Attending MD Admitting Physician: Not on Staff, Admitting MD Referring Physician: Not on Staff, Referring MD Allergies, Adverse Reactions, Alerts No Known Allergies Immunizations Given and Recorded Vaccine Date Status Refusal Reason SARS-CoV-2 mRNA (kjywvek-eezk-lxwkp) vax 09/30/21 Recorded SARS-CoV-2 (COVID-19) mRNA BNT-162b2 [...] mL,2 Refills, Maintenance, 12/22/21 14:32:00 EDT, Liquid, [id number], Partial fill upon patient request if the prescription is for a sche... Start Date: 12/22/21 Status: Ordered cetirizine 1 mg/mL oral syrup 10 mL = 10 mg, By Mouth, Daily, PRN Itch, replaces benadryl, # 120 mL, 0 Refills, Maintenance, 12/28/21 10:47:00 EDT, Syrup, [facility] #[id number], 154.94, cm, 12/28/21 10:31:00 EDT, Height, 97.6, kg, 12/23/21 12:27:00 EDT, Dry Weight Start Date: 12/28/21 Stop Date: 01/11/22 Status: Ordered lidocaine-prilocaine 2.5%-2.5% topical cream 1 application, Topically, Once, use 40 min before port access, # 30 Gm, 0 Refills, Soft Stop, 11/30/21 16:17:00 EDT, Cream, [facility] #[id number], Partial fill upon patient request if the prescription is for a schedule II opioid drug., 1 applica... Start Date: 11/30/21 Status: Ordered miracle mouth wash miracle mouth wash, See Instructions, # 580 mL, Refills 0, Tot. Refills 0, Maintenance, Benadryl elixir 4 oz, nystatin susp (100,000 u/ml) 4 0z, lidocaine visc 2% 100mL, mylanta 8 oz 5-10 mL swish and spit every 2 hrs PRN mouth sores, 01/11/22 14:1... Start Date: 01/11/22 Status: Ordered Miracle Mouthwash Miracle Mouthwash, See Instructions, # 580 mL, Refills 5, Tot. Refills 5, Maintenance, Benadryl grylgb7bc+Nystatin susp(100,000 u/ml)4oz+Visc.Lido2%100ml+Mylanta 8oz. 5-10cc swish+spit/swallow Q2 hr PRN mouth-throat pain., 12/16/21 9:44:00 EDT, Compou... Start Date: 12/16/21 Status: Ordered MiraLax oral powder for reconstitution = 17 Gm, By Mouth, Daily, dissolve in water before taking, # 527 Gm, 1 Refills, Maintenance, 01/01/22 9:53:00 EDT, REC Powder, [facility][id number], Partial fill upon patient request if the prescription is for a schedule II opioid drug., 17 Gm... Start Date: 01/01/22 Status: Ordered [facility] Rx Refills 0, Maintenance, [facility], 10/27/21 14:50:00 EDT, Supply Start Date: 10/27/21 Status: Ordered omeprazole 2 mg/mL oral suspension 10 mL = 20 mg, By Mouth, Daily, or give through G-tube, # 300 mL, 2 Refills, Maintenance, 01/08/22 13:02:00 EDT, [facility], Partial fill upon patient request if the prescription is for a schedule II opioid drug., 154.94, cm,... Start Date: 01/08/22 Status: Ordered ondansetron 8 mg oral tablet 1 tablet = 8 mg, By Mouth, Every 8 hours, PRN as needed for nausea/vomiting, # 30 tablet, 1 Refills, Maintenance, 11/30/21 8:53:00 EDT, Tablet, [facility] #[id number], Partial fill upon patient request if the prescription is for a schedule II opi... Start Date: 11/30/21 Status: Ordered oxyCODONE 5 mg oral tablet 5 mg, 1, tablet, By Mouth, Every 4 hours, May take via PEG tube. May use half tablet at a time if preferred, # 40 tablet, Refills 0, Tot. Refills 0, Maintenance, 01/01/22 9:49:00 EDT, Route to Pharmacy Electronically, [id number], Par... Start Date: 01/01/22 Status: Ordered Silvadene 1% cream 1 application, Topically, 2 times a day, # 400 Gm, 1 Refills, Acute 04/18/22 13:59:00 EDT, 01/18/2213:59:00 EDT, Cream, [facility][id number], Partial fill upon patient request if the prescription is for a schedule II opioid drug., 1 applicatio... Start Date: 01/18/22 Stop Date: 04/18/22 Status: Ordered sucralfate 1 gm oral tablet See Instructions, DISSOLVE 1 TABLET IN 10 ML WARM WATER AND DRINK THREE TIMES DAILY BEFORE A MEAL, # 270 tablet, Refills 0, Instructions Replace Required Details, Route to Pharmacy Electronically, [facility] #[id number], 154.94, cm, 01/05/22 14:3... Start Date: 01/11/22 Status: Ordered Problem List Condition Effective Dates Status Health Status Inform ant Allergic rhinitis(Confirmed) Active OAB (overactive bladder)(Confirmed) Active Chronic kidney disease (CKD) stage G3a/Ax(Confirmed) Active Bochdalek hernia(Confirmed) Active Degenerative lumbar disc(Confirmed) Active Gastrostomy tube dependent(Confirmed) Active Dyslipidemia(Confirmed) Active GERD (gastroesophageal reflu x disease)(Confirmed) Active History of breast cancer ([facility] breast) 1996 S/P umpectomy and radiation(Confirmed) Active [...]
--- OUTSIDE RECORDS SUMMARY | 2024-04-14 23:41 | XMS_ITS | Continuity of Care Document ---
Author Organization [facility] Sergo lt Address [address] [place] [address]- Care Team Providers Care Camera Repairman Name Role Phone Cynthia SEGURA, Ricardo Nicole Primary Care Physician [facility] 12[facility] - 01/26/20 [facility] Adult [address] [place] [address]- [facility] Attending Physician: Admtr, Ar8 Admitting Physician: Admtr, Ar8 Referring Physician: Admtr, Ar8 Allergies, Adverse Reactions, [...]
--- OUTSIDE RECORDS SUMMARY | 2024-04-14 23:41 | XMS_ITS | Continuity of Care Document ---
Author Organization [facility] Sergo lt Address [address] [place] [address]- Care Team Providers Care Shirt Turner Name Role Phone Aditya Haley HU Primary Care Physician [facility] Date(s): 04/04/23 - 05/04/23 [facility] Adult [address] [place] [address]- Allergies, Adverse Reactions, Alerts No Known Allergies Immunizations Given and Recorded Vaccine Date Status Refusal Reason pneumococcal 20-valent conjugate vaccine 1 01/17/23 Given [id number] 12y+ bivalent booster vax 2 04/27/22 Given influenza virus vaccine, inactivated 04/09/22 Carrillo rded influenza virus vaccine, inactivated 02/17/21 Carrillo rded influenza virus vaccine, inactivated 03/23/18 Carrillo rded influenza virus vaccine, inactivated 04/01/17 Carrillo rded influenza virus vaccine, inactivated 03/18/16 Carrillo rded SARS-CoV-2 mRNA ([id number]) vax 09/30/21 Recorded SARS-CoV-2 (COVID-19) mRNA BNT-162b2 [...] pneumococcal 13-valent vaccine 06/20/15 Recorded 1Result Comment: [id number] 2Result Comment: [id number] Medications 1 breast prosthesis and three bras [...] 01/27/23 16:11:00 EDT, Tablet, [facility] ([facility]), 153, cm, 01/17/23 9:12:00 EDT, Height, 93.3, kg, 09/29/22 15:49:00 EDT, Dry Weight Start Date: 01/27/23 Stop Date: 07/26/23 Status: Ordered omeprazole 20 mg oral enteric coated capsule 1 capsule, By Mouth, Daily, PRN NEEDED FOR DYSPEPSIA, # 90 capsule, 1 Refills, Maintenance, 04/05/23 10:51:00 EDT, [facility] ([facility]), 153, cm, 01/17/23 9:12:00 EDT, [...] Care Nurse Name: Haley Burgess NP Position: [facility] PCO Associate Professional Member Role: PCP Address: Address: [address] [place] [id number] Name: Poornima Martinez RN Position: S RN Member Role: Primary Care Nurse Name: Suhail Duckworth RN Position: S RN Supv Member Role: Primary Care Nurse Name: Holli Ramos RN Position: S RN Member Role: Primary Care Nurse Name: Katina Samaniego Position: S RN Member Role: Primary Care Nurse Name: Felecia Hernandez RN Position: [facility] Onco RN Member Role: Primary Care Nurse Name: Verito Alonzo NP Position: [facility] PCO Associate Professional Member Role: Primary Care Nurse Address: Address: [address] [place] [address] [place] [address]- Name: Minh Bryant RN Position: [facility] RN Member Role: Primary Care Nurse Care Team Related Persons Name: DAZAINA Address: home [address] [place] [address]
--- OUTSIDE RECORDS SUMMARY | 2024-04-14 23:41 | XMS_ITS | Continuity of Care Document ---
[facility] Address [address] [place] [address]- Care Team Providers Care Director Hris Name Role Phone Cynthia SEGURA, Ricardo Nicole Primary Care Physician [phone] [facility] Date[facility]s): 06/23/20 - 07/23/20 [facility] Adult [address] [place] [address]- Allergies, Adverse Reactions, Alerts Substance Reaction Severity [...]
--- OUTSIDE RECORDS SUMMARY | 2024-04-14 23:41 | XMS_ITS | Continuity of Care Document ---
Author Organization [facility] Sergo lt Address [address] [place] [address]- Care Team Providers Care Pianos [employer] Salesperson Name Role Phone Aditya BOX FEEDERHaley Primary Care Physician Encounter [facility] Date(s): 09/19/23 - 10/19/23 [facility] Adult [address] [place] [address]- Allergies, Adverse Reactions, Alerts No Known Allergies Immunizations Given and Recorded Vaccine Date Status Refusal Reason influenza virus vaccine, inactivated 04/09/23 Carrillo rded influenza virus vaccine, inactivated 04/09/22 Carrillo rded influenza virus vaccine, inactivated 02/17/21 Carrillo rded influenza virus vaccine, inactivated 03/23/18 Carrillo rded influenza virus vaccine, inactivated 04/01/17 Carrillo rded influenza virus vaccine, inactivated 03/18/16 Carrillo rded SARS-CoV-2(COVID-19)mRNA-LNP vac([id number]) 04/09/23 Recorded pneumococcal 20-valent conjugate vaccine 1 01/17/23 Given [id number] 12y+ bivalent booster vax 2 04/27/22 Given SARS-CoV-2 mRNA ([id number]) vax 09/30/21 Recorded SARS-CoV-2 (COVID-19) mRNA BNT-162b2 [...] pneumococcal 13-valent vaccine 06/20/15 Recorded 1Result Comment: [id number] 2Result Comment: [id number] Medications cevimeline 30 mg oral capsule 1 capsule = 30 mg, By Mouth, 3 times a day, # 90 capsule, 5 Refills, Maintenance, 08/13/23 12:25:00EST, Capsule, [facility]/pharmacy #[id number], 153, cm, 07/18/23 10:07:00 EST, [...] Maintenance, 04/05/23 10:51:00 EDT, [facility] ([facility]), 153, cm, 01/17/23 9:12:00 EDT, Height, 93.3, kg, 09/29/22 15:49:00 EDT, Dry Weight Start Date: 04/05/23 Status: Ordered PreviDent 5000 Enamel Protect 1.1%-5% topical paste 1 application, Topically, 2 times a day, rinse and spit; do not swallow, # 100 mL, 6 Refills, Maintenance, 04/14/23 18:52:00 EDT, Paste, [facility]/pharmacy #[id number], Partial fill upon patient request [...] Care Nurse Name: Haley Burgess NP Position: [facility] PCO Associate Professional Member Role: PCP Address: Address: [address] [place] [address]- [place] Name: Poornima Martinez RN Position: S RN Member Role: Primary Care Nurse Name: Suhail Duckworth RN Position: [facility] RN Supv Member Role: Primary Care Nurse Name: Holli Ramos RN Position: S RN Member Role: Primary Care Nurse Name: Katina Samaniego Position: S RN Member Role: Primary Care Nurse Name: Felecia Hernandez RN Position: [facility] Onco RN Member Role: Primary Care Nurse Name: Verito Alonzo NP Position: [facility] PCO Associate Professional Member Role: Primary Care Nurse Address: Address: [address] [facility] [place] [address]- [place] Name: Minh Bryant RN Position: S RN Member Role: Primary Care Nurse Care Team Related Persons Name: ZAINA ROBERSON Address: [address] [address]
--- OUTSIDE RECORDS SUMMARY | 2024-04-14 23:41 | XMS_ITS | Continuity of Care Document ---
Author Organization [facility] Sergo lt Address [address] [place] [address]- Care Team Providers Care Guard Supervisor Name Role Phone Haley Burgess NP Primary Care Physician [phone] Encounter [facility] Date(s): 01/16/24 - 01/23/24 [facility] Adult [address] [place] [address]- Encounter Diagnosis Dyslipidemia(Discharge Diagnosis) - 01/15/24 Chronic kidney disease (CKD) stage G3a/Ax(Discharge Diagnosis) - 01/15/24 GERD (gastroesophageal reflux disease)(Discharge Diagnosis) - 01/15/24 Multiple pulmonary nodules(Discharge Diagnosis) - 01/15/24 Severe obesity(Discharge Diagnosis) - 01/15/24 History of cancer tonsil(Discharge Diagnosis) - 01/15/24 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) - 01/15/24 Osteopenia of femoral neck(Discharge Diagnosis) - 01/15/24 Fall(Discharge Diagnosis) - 01/16/24 Right hip pain(Discharge Diagnosis) - 01/16/24 Attending Physician: Haley Burgess NP Referring Physician: Cezar Cunningham MD Allergies, Adverse Reactions, Alerts No Known Allergies Immunizations Given and Recorded Vaccine Date Status Refusal Reason RSV vaccine preF3, recombinant 08/05/23 Recorded influenza virus vaccine, inactivated 04/09/23 Carrillo rded influenza virus vaccine, inactivated 04/09/22 Carrillo rded influenza virus vaccine, inactivated 02/17/21 Carrillo rded influenza virus vaccine, inactivated 03/23/18 Carrillo rded influenza virus vaccine, inactivated 04/01/17 Carrillo rded influenza virus vaccine, inactivated 03/18/16 Carrillo rded SARS-CoV-2(COVID-19)mRNA-LNP vac([id number]) 04/09/23 Recorded pneumococcal 20-valent conjugate vaccine 1 01/17/23 Given [id number] 12y+ bivalent booster vax 2 04/27/22 Given SARS-CoV-2 mRNA ([id number]) vax 09/30/21 Recorded SARS-CoV-2 (COVID-19) mRNA BNT-162b2 [...] pneumococcal 13-valent vaccine 06/20/15 Recorded 1Result Comment: [id number] 2Result Comment: [id number] Medications Acetaminophen take 2 tabs in AM & 1 QHS, 0 Refills, Maintenance, 01/16/24 9:54:00 EDT, Partial fill upon patient request if the prescription is for a schedule II opioid drug. Start Date: 01/16/24 Status: Ordered cevimeline 30 mg oral capsule 1 capsule = 30 mg, By Mouth, 3 times a day, # 90 capsule, 5 Refills, Maintenance, 08/13/23 12:25:00EST, Capsule, [facility]/pharmacy #[id number], 153, cm, 07/18/23 10:07:00 EST, Height, 87.6, kg, 04/14/23 15:06:00 EDT, Dry Weight Start Date: 08/13/23 Stop Date: 02/09/24 Status: Ordered fenofibrate 160 mg oral tablet 1 tablet, By Mouth, Daily, # 90 tablet, 1 Refills, Maintenance, 01/17/24 13:07:00 EDT, [facility], 154, cm, 01/16/24 9:26:00 EDT, Height, 95.2, kg, 10/13/23 14:03:00 EDT, Dry Weight Start Date: 01/17/24 Status: Ordered omeprazole 20 mg oral enteric coated capsule 1 capsule, By Mouth, Daily, PRN NEEDED FOR DYSPEPSIA, # 90 capsule, 1 Refills, Maintenance, 01/17/24 13:07:00 EDT, [facility], 154, cm, 01/16/24 9:26:00 EDT, Height, 95.2, kg, 10/13/23 14:03:00 EDT, Dry Weight Start Date: 01/17/24 Status: Ordered PreviDent 5000 Enamel Protect 1.1%-5% [...] Active 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 Diagnosis Diagnosis Type Effective Dates Health Status Clinical Service Informant Dyslipidemia Discharge Diagnosis 01/15/24 Chronic kidney disease (CKD) stage G3a/Ax Discharge Diagnosis 01/15/24 GERD (gastroesophageal reflux disease) Discharge Diagnosis 01/15/24 Multiple pulmonary nodules Discharge Diagnosis 01/15/24 Severe obesity Discharge Diagnosis 01/15/24 History of cancer tonsil Discharge Diagnosis 01/15/24 Xerostomia due to radiotherapy Discharge Diagnosis 01/15/24 Osteopenia of femoral neck Discharge Diagnosis 01/15/24 Fall Discharge Diagnosis 01/16/24 Right hip pain Discharge Diagnosis 01/16/24 Vital Signs Most recent to oldest [Reference Range]: 1 Height 154 cm (01/16/24 9:26 AM) Weight 96.8 kg (01/16/24 9:26 AM) Oxygen Saturation [94-100 %] 96 % (01/16/24 9:26 AM) Pulse Rate [55-90 bpm] 88 bpm (01/16/24 9:26 AM) Body Mass Index [18.5-24.99 kg/m2] 40.82 kg/m2 *>HHI* (01/16/24 9:26 AM) Blood Pressure [90-138/55-84 mm Hg] 124/ 80mm Hg (01/16/24 9:26 AM) Mode of Delivery (Oxygen) Room air (01/16/24 9:26 AM) Blood pressure sites Arm, left (01/16/24 9:26 AM) Weight Obtained Via Standing scale (01/16/24 9:26 AM) Social History Social History Type Response Smoking Status Former smoker, quit more than 30 days ago; Tobacco use times per day: social smoker; Started at age: 18; Stopped at age: 23; entered on: 06/29/21 Sex Note * Beth Smith: PERFORM Event Display: Patient Education/Instruction Authored Date: [id number] Ambulatory Adult Visit Summary [facility] [address] [address] Name: OBINNAANUSHA RIOS : 1945?? Visit: 01/16/2024 09:18?? Ambulatory Visit Instructions ?? Your Care Team Primary Care Provider Haley Burgess NP? This Visit Provider Haley Burgess NP. 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 Follow Up with??Aditya HU, Haley Brownlee When:??In 6 months Where: ?? Future Orders CT Chest W/O Contrast, Routine, Reason for Exam: Other:, F/U nodules, No Contrast, Once, *Est. 01/16/24 Medications The list below reflects the information in our records and provided by you today along with any changes made during this visit. Please continue your medications until treatment is completed or stopped by your provider. If this is different from the information you have or there are other questions,please contact the prescribing provider. What How Much When Instructions Unchanged Acetaminophen take 2 tabs in AM & 1 QHS ?? Unchanged Cevimeline (cevimeline 30 mg oral capsule) 1 capsule Oral 3 times a day Duration: 30 Days Unchanged Fenofibrate (fenofibrate 160 mg oral tablet) 1 tab(s) Oral Daily Unchanged fluoride-potassium nitrate topical (PreviDent 5000 Enamel Protect 1.1%-5% topical paste) 1 aminah Topically Twice a day Duration: 60 Days rinse and spit; do not swallow ?? Unchanged Omeprazole (omeprazole 20 mg oral enteric coated capsule) 1 capsule Oral Daily as needed for NEEDED FOR DYSPEPSIA Medications and Immunizations Administered Medications Given During Visit No medications given during this visit.?? Allergies (NKA means No Known Allergies) NKA Common Emergency Awareness Tips IS IT A [...] are strongly encouraged to quit. Please call [employer] at [phone] or [phone]-[employer] ([phone]) or log in to [email or web address] for referrals to smoking cessation programs. ?? The National Suicide Prevention Hotline is available 10/01 if you or someone you know needs to find a reason to keep living. By calling 9-691-375-[employer] (3185) you'll be connected to a skilled, trained counselor at a crisis center in your area. [facility] My[facility]elBack Portal You can view and manage your care through the patient portal or by using a health care aminah of your choosing. [employer] is a website that allows you to securely view your medical information including your hospital discharge summary, office visit summaries, medications and follow-up visits. You can also request appointments, renew medications, and request access to your medical information using a health care aminah of your choosing, or just ask a question. You can enroll at [email or web address] or register during your next office visit. [facility], in keeping with [facility] guidance, no longer requires face masks [...] medical provider or home test kit. ?? Disclaimer: The information provided is of a general nature and is intended to be used in conjunction with the recommendations and advice of your health care practitioner. Every effort has been made to ensure that the information provided is accurate and complete at the time it is provided to you however, as your needs change, or, as new information becomes available, different or additional instructions may be required. ?? If you have questions, please consult with your primary care provider or pharmacist, as appropriate. This information is not intended to serve as substitution for assessment and evaluation by a qualified health care provider. If you do not have a primary care provider, you may find a [facility]elBack provider by calling [employer] at [phone]. Patient Care team information Care Team Personnel Name: Camille Mathew RN Position: S RN Member Role: Primary Care Nurse Name: Haley Burgess NP Position: [facility] PCO Associate Professional Member Role: PCP Address: Address: [address] [facility] [place] [address]- [place] Name: Poornima Martinez RN Position: [facility] RN Member Role: Primary Care Nurse Name: Suhail Duckworth RN Position: [facility] RN Supv Member Role: Primary Care Nurse Name: Holli Ramos RN Position: [facility] RN Member Role: Primary Care Nurse Name: Katina Samaniego RN Position: [facility] RN Member Role: Primary Care Nurse Name: Felecia Hernandez RN Position: [facility] Onco RN Member Role: Primary Care Nurse Name: Verito Alonzo NP Position: [facility] PCO Associate Professional Member Role: Primary Care Nurse Address: Address: [address] [place] [address] [place] [address]- [place] Name: Minh Bryant RN Position: [facility] RN Member Role: Primary Care Nurse Care Team Related Persons Name: ZAINA ROBERSON Address: home [address] [place] [address]
--- OUTSIDE RECORDS SUMMARY | 2024-04-14 23:41 | XMS_ITS | Continuity of Care Document ---
Author Organization [facility] Address [address] [place] [address]- Care Team Providers Care Leader Tier Name Role Phone Aditya SHIP FASTENER, Haley Brownlee Primary Care Physician Encounter [facility] [place] Date(s): 10/16/21 - 11/16/22 [facility] [address] [place] [address]- Discharge Disposition: A-D/C Home Attending Physician: Hector SEGURA, Ken Scruggs Admitting Physician: Mil SEGURA, Jordan Referring Physician: August Valdes MD, I Allergies, Adverse Reactions, Alerts No Known Allergies Immunizations Given and Recorded Vaccine Date Status Refusal Reason [id number] 12y+ bivalent booster vax 1 04/27/22 Given influenza virus vaccine, inactivated 04/09/22 Carrillo rded influenza virus vaccine, inactivated 02/17/21 Carrillo rded influenza virus vaccine, inactivated 03/23/18 Carrillo rded influenza virus vaccine, inactivated 04/01/17 Carrillo rded influenza virus vaccine, inactivated 03/18/16 Carrillo rded SARS-CoV-2 mRNA ([id number]) vax 09/30/21 Recorded SARS-CoV-2 (COVID-19) mRNA BNT-162b2 [...] Given Parent Or Guardian Refuses 1Result Comment: [id number] Medications 1 breast prosthesis and three bras [...] mL,2 Refills, Maintenance, 12/22/21 14:32:00 EDT, Liquid, [facility][id number], Partial fill upon patient request if the prescription is for a sche... Start Date: 12/22/21 Status: Ordered cevimeline 30 mg oral capsule 1 capsule = 30 mg, By Mouth, 3 times a day, Stop taking Pilocarpine when taking this medication, # 90 capsule, 5 Refills, Maintenance, 06/14/22 11:18:00 EST, Capsule, [facility] #[id number], Partial fill upon patient request if the [...] 1 Refills, Maintenance, 07/16/22 11:49:00 EST, Tablet, [facility] #[id number], 156, cm, 07/14/22 10:10:00 EST, Height, 91.5, [...] obesity (BMI 35.0-39.9) with comorbidity Confirmed Active Results Orders for Microbiology Reports Name Date Mouth Culture 03/16/22 Mouth Culture 02/09/22 Microbiology Reports TEST:Mouth Culture STATUS:Auth (Verified) BODY SITE: SOURCE:Mouth COLLECTED DATE/TIME:03/16/22 12:15 PM Mouth Culture SPECIMEN DESCRIPTION : MOUTH SPECIAL REQUESTS : NONE CULTURE : 4+ NORMAL DOMONIQUE REPORT STATUS : FINAL 03/19/2022 TEST:Mouth Culture STATUS:Auth (Verified) BODY SITE: SOURCE:Mouth COLLECTED DATE/TIME:02/09/22 2:18 PM Mouth Culture SPECIMEN DESCRIPTION : MOUTH SPECIAL REQUESTS : NONE CULTURE : 4+ NORMAL DOMONIQUE NO YEAST SEEN REPORT STATUS : FINAL 02/12/2022 Vital Signs Most recent to oldest [Reference Range]: 1 2 3 Height 156 cm (09/16/22 2:53 PM) 156 cm (09/14/22 10:59 AM) 156 cm (07/21/22 10:59 AM) Weight 90.8 kg (09/16/22 2:53 PM) 91.1 kg (09/14/22 10:59 AM) 91.9 kg (07/21/22 10:59 AM) Oxygen Saturation [94-100 %] 98 % (09/16/22 2:53 PM) 98 % (09/14/22 10:59 AM) 97 % (07/21/22 10:59 AM) Pulse Rate [55-90 bpm] 84 bpm (09/16/22 2:53 PM) 95 bpm *H* (09/14/22 10:59 AM) 87 bpm (07/21/22 10:59 AM) Body Mass Index [18.5-24.99 kg/m2] 37.31 kg/m2 *>HHI* (09/16/22 2:53 PM) 37.43 kg/m2 *>HHI* (09/14/22 10:59 AM) 37.76 kg/m2 *>HHI* (07/21/22 10:59 AM) Blood Pressure [90-138/55-84 mm Hg] 123/56mm Hg (09/16/22 2:53 PM) 143/61mm Hg *H* (09/14/22 10:59 AM) 137/71mm Hg (07/21/22 10:59 AM) Temperature [96.8-100.4 DegF] 97.3 DegF (09/16/22 2:53 PM) 96.8 DegF (09/14/22 10:59 AM) 97.3 DegF (07/21/22 10:59 AM) Mode of Delivery (Oxygen) Room air (09/16/22 2:53 PM) Room air (09/14/22 10:59 AM) Room air (07/21/22 10:59 AM) Blood pressure sites Arm, left (09/16/22 2:53 PM) Arm, right (09/14/22 10:59 AM) Arm, left (07/21/22 10:59 AM) Temperature Route Temporal (09/16/22 2:53 PM) Temporal (09/14/22 10:59 AM) Temporal (07/21/22 10:59 AM) Dry Weight 90.8 kg (09/16/22 2:53 PM) 91.1 kg (09/14/22 10:59 AM) 91.9 kg (07/21/22 10:59 AM) Weight Obtained Via Standing scale (09/16/22 2:53 PM) Standing scale (09/14/22 10:59 AM) Standing scale (07/21/22 10:59 AM) Dry Weight Obtained Via Standing scale (09/16/22 2:53 PM) Standing scale (09/14/22 10:59 AM) Standing scale (07/21/22 10:59 AM) Social History Social History Type Response Smoking Status Former smoker, quit more than 30 days ago; Tobacco use times per day: social smoker; Started at age: 18; Stopped at age: 23; entered on: 06/29/21 Sex Note * Albert Barrientos MA: PERFORM, SIGN, VERIFY Event Display: Patient Education/Instruction Authored Date: [facility] *Heme/Onc Adult Clinical Summary Name OBINNA RIOS Age 76 Years 1945 PCP Haley Burgess NP PCP Visit Date 10/16/2021 11:39:00 Additional Instructions: Scheduled Appointments?? Future Appointments ?*BMP??So??Leon[facility]Adlt ?[address],??[address] ?Phone:??--?Fax:??-- ?Appt. Date:??12/28/2021?10:30 AM ?Scheduled Provider:??Haley Burgess NP. Follow-Up Instructions ?? Diagnosis Medications: Please continue your medications until treatment is completed or stopped by your provider. Discuss any questions related to medications with your provider. Medications to Continue with No Changes These medications were not printed or sent to your pharmacy Aspirin (aspirin 81 mg oral tablet) 1 tab(s) Oral Daily. Next Dose: Benazepril-Hydrochlorothiazide (benazepril-hydrochlorothiazide 10 mg-12.5 mg oral tablet) 1 tab(s) Oral Daily. Refills: 3. Next Dose: Fenofibrate (fenofibrate 160 mg oral tablet) 1 tab(s) Oral Daily in the morning. Refills: 3. Next Dose: Multivitamin Daily. Next Dose: Richmond-3 Polyunsaturated Fatty Acids (Fish Oil) Oral Daily. Next Dose: Omeprazole (omeprazole 20 mg oral enteric coated capsule) 1 capsule Oral Daily. Refills: 0. Next Dose: Oxybutynin (oxybutynin 10 mg/24 hr oral tablet, extended release) 1 tab(s) Oral Daily. Refills: 3. Next Dose: Allergy Info:?? NKA Medications Given This Visit Future Orders ?No future orders Vital Signs Height 156.4 cm Weight 104.6 kg BMI 42.76 Blood Pressure 139 mm Hg/55 mm Hg Temperature 97.3 DegF Pulse Rate 93 bpm Respiratory Rate 02 Sat Mode of Delivery / You can now view a summary of your hospital visit from the comfort of your home through a free online portal called [facility]. [employer] is a website that allows you to securely view your medical information including discharge summary, medications and follow-up visits. ??You can alsosend a secure electronic message to your doctor???s office to request appointments, renew medications or just ask a question. You can enroll at [email or web address] or register during your next office [...] primary care provider, you may find a [facility] provider by calling [facility] at [phone]. For information about the plan of care [...] NP Position: [facility] PCO Associate Professional Member Role: PCP Address: Address: [address] [place] [id number] Name: Poornima Martinez RN Position: S [...] Persons Name: ZAINA ROBERSON Address: home [address] [place] [address]
--- OUTSIDE RECORDS SUMMARY | 2024-04-14 23:41 | XMS_ITS | Continuity of Care Document ---
Author Organization [facility] Address [address] [place] [address]- Care Team Providers Care Crusher Supervisor Name Role Phone Aditya HU, Haley Brownlee Primary Care Physician Encounter [facility] [place] Date(s): 09/23/21 - 10/23/21 [facility] Adult [address] [place] [address]- Allergies, Adverse Reactions, Alerts No Known Allergies [...]
--- OUTSIDE RECORDS SUMMARY | 2024-04-14 23:41 | XMS_ITS | Continuity of Care Document ---
Author Organization [facility] Address [address] [place] [address]- Care Team Providers Care Pre Sales Network Engineer Name Role Phone Aditya HU, Haley Brownlee Primary Care Physician [phone] Encounter 08/12/21 - 08/19/21 [facility] [address], [address] [place] [address]- Attending Physician: Haley Burgess NP Admitting Physician: Haley Burgess NP Referring Physician: Haley Burgess NP Allergies, Adverse [...] x disease)(Confirmed) Active History of breast cancer ([facility] breast) 1996 S/P umpectomy and radiation(Confirmed) Active Hypertension(Confirmed) Active Nephrolithiasis(Confirmed) Active Morbid obesity(Confirmed) Active Multiple pulmonary nodules - incidental finding stable, next CT December 2019(Confirmed) Active DNR (do not resuscitate)(Confirmed) Active Osteopenia of femoral neck(Confirmed) Active NSAID long-term use(Confirmed) Active Severe obesity(Confirmed) Active Procedures Procedure Date Related Diagnosis Body Site Status Bone density scan- osteopeni a femoral neck, otherwise normal FRAX 03/2108/12/21 Completed 1Region BMD T-score Z-score Classification AP Spine (L1-L4) 1.149 0.9 3.4 Normal Femoral Neck (Right) 0.682 -1.5 0.7 Osteopenia Total Hip (Right) 0.908 -0.3 1.6 Normal Results Radiology Reports * Exam Date Time Procedure Performing Provider Status 08/12/21 11:23 AM Dexa Bone Density (Axial) Torrie Floyd; Hardik (Verified) Notes: (Dexa Bone Density (Axial)) Reason For Exam: Screening for Osteoporosis RESULT: DEXA BONE DENSITY (AXIAL) Bone Density Report Name: OBINNA RIOS Age: 76 Sex: Female Ethnicity: White Date of : 1945 Indication: POSTMENOPAUSAL. Referring Provider: HALEY BURGESS Study: Bone densitometry was performed. Exam Date: August 12, 2021 Accession number: [id number] Bone Density: Region BMD T-score Z-score Classification AP Spine (L1-L4) 1.149 0.9 3.4 Normal Femoral Neck (Right) 0.682 -1.5 0.7 Osteopenia Total Hip (Right) 0.908 -0.3 1.6 Normal World Health Organization criteria for BMD impression classify patients as: Normal (T-score at or above -1.0), Osteopenia (T-score between -1.0 and -2.5), or Osteoporosis (T-score at or below -2.5). 10-year Fracture Risk(1): Major Osteoporotic Fracture 10% Hip Fracture 2.0% Reported Risk Factors: [place] (), Neck BMD=0.682, BMI=43.5 (1) FRAX(R) Version 3.00. Fracture probability calculated for an untreated patient. Fracture probability may be lower if the patient has received treatment. Clinical Information Provided by Patient: Has the following medical conditions: Cancer, Hysterectomy Patient maximum height was 62.0 Menopause Age: 32 Onset of menses at age 15 Number of children 2 Impression: The patient has osteopenia as determined by WHO criteria. Reported by: Walter Beyer M.D. on 08/14/2021 10:51:00 AM. Dictated By: Walter Beyer MD Dictated Date/Time: 08/14/21 10:51 a Reviewed By: Walter Beyer MD Signed By: Walter Beyer MD Signed Date/Time: 08/14/21 10:51 am Transcribed By: ALVIN Transcribed Date/Time: 08/14/21 10:51 am Social History Social History Type Response Smoking Status Former smoker, quit more than 30 days ago; Tobacco use times per day: social smoker; Started at age: 18; Stopped at age: 23; entered on: 06/29/21 Sex
--- OUTSIDE RECORDS SUMMARY | 2024-04-14 23:42 | XMS_ITS | Continuity of Care Document ---
Author Organization [facility] Serg[facility] Address [address] [place] [address]- Care Team Providers Care Bulk Receiver Name Role Phone Aditya DIRECTOR OF CARDIAC CATH LABHaley Primary Care Physician Encounter [facility] Date(s): 01/01/22 - 01/31/22 [facility] Adult [address] [place] [address]- Allergies, Adverse Reactions, Alerts No Known Allergies Immunizations Given and Recorded Vaccine Date Status Refusal Reason SARS-CoV-2 mRNA ([id number]) vax 09/30/21 Recorded SARS-CoV-2 (COVID-19) mRNA BNT-162b2 [...] mL,2 Refills, Maintenance, 12/22/21 14:32:00 EDT, Liquid, [facility] #[id number], Partial fill upon patient request if the prescription is for a sche... Start Date: 12/22/21 Status: Ordered cetirizine 1 mg/mL oral syrup 10 mL = 10 mg, By Mouth, Daily, PRN Itch, replaces benadryl, # 120 mL, 0 Refills, Maintenance, 12/28/21 10:47:00 EDT, Syrup, [facility] #[id number], 154.94, cm, 12/28/21 10:31:00 EDT, Height, 97.6, kg, 12/23/21 12:27:00 EDT, Dry Weight Start Date: 12/28/21 Stop Date: 01/11/22 Status: Ordered lidocaine-prilocaine 2.5%-2.5% topical cream 1 application, Topically, Once, use 40 min before port access, # 30 Gm, 0 Refills, Soft Stop, 11/30/21 16:17:00 EDT, Cream, [facility] #[id number], Partial fill upon patient request if the [...] Refills 5, Tot. Refills 5, Maintenance, Benadryl [id number]+Nystatin susp(100,000 u/ml)4oz+Visc.Lido2%100ml+Mylanta 8oz. 5-10cc swish+spit/swallow Q2 hr PRN mouth-throat pain., 12/16/21 9:44:00 EDT, Compou... Start Date: 12/16/21 Status: Ordered MiraLax oral powder for reconstitution = 17 Gm, By Mouth, Daily, dissolve in water before taking, # 527 Gm, 1 Refills, Maintenance, 01/01/22 9:53:00 EDT, REC Powder, [facility] #[id number], Partial fill upon patient request if the prescription is for a schedule II opioid drug., 17 Gm... Start Date: 01/01/22 Status: Ordered [facility] Rx Refills 0, Maintenance, [facility], 10/27/21 14:50:00 EDT, Supply Start Date: 10/27/21 Status: Ordered omeprazole 2 mg/mL oral suspension 10 mL = 20 mg, By Mouth, Daily, or give through G-tube, # 300 mL, 2 Refills, Maintenance, 01/08/22 13:02:00 EDT, Suspension, [facility] 3, Partial fill upon patient request if the prescription is for a schedule II opioid drug., 154.94, cm,... Start Date: 01/08/22 Status: Ordered ondansetron 4 mg oral tablet, disintegrating 1 tablet = 4 mg, By Mouth, Every 8 hours, PRN as needed for nausea/vomiting, # 30 tablet, 1 Refills, Maintenance, 01/26/22 13:41:00 EDT, DIS Tablet, [facility] #[id number], Patient not tolerating PO. Partial fill upon patient request if the presc... Start Date: 01/26/22 Status: Ordered oxyCODONE 5 mg/5 mL oral solution 5 mL = 5 mg, G Tube, Every 4 hours, PRN Pain , Severe, # 60 mL, 0 Refills, Maintenance, 01/26/22 13:41:00 EDT, Solution, [facility] #[id number], Patient nt tolerating PO. Partial fill upon patient request if the prescription is for a schedule II... Start Date: 01/26/22 Status: Ordered Silvadene 1% cream 1 application, Topically, 2 times a day, # 400 Gm, 1 Refills, Acute 04/18/22 13:59:00 EDT, 01/18/2213:59:00 EDT, Cream, [facility] #[id number], Partial fill upon patient request if the prescription is for a schedule II opioid drug., 1 applicatio... Start Date: 01/18/22 Stop Date: 04/18/22 Status: Ordered sucralfate 1 gm oral tablet See Instructions, DISSOLVE 1 TABLET IN 10 ML WARM WATER AND DRINK THREE TIMES DAILY BEFORE A MEAL, # 270 tablet, Refills 0, Instructions Replace Required Details, Route to Pharmacy Electronically, [facility] #[id number], 154.94, cm, 01/05/22 14:3... Start Date: 01/11/22 Status: Ordered Problem List Condition Effective Dates Status Health Status Inform ant Allergic rhinitis(Confirmed) Active OAB (overactive bladder)(Confirmed) Active Chronic kidney disease (CKD) stage G3a/Ax(Confirmed) Active Bochdalek hernia(Confirmed) Active Degenerative lumbar disc(Confirmed) Active Gastrostomy tube dependent(Confirmed) Active Dyslipidemia(Confirmed) Active GERD (gastroesophageal reflu x disease)(Confirmed) Active History of breast cancer ([facility] breast) 1996 S/P umpectomy and radiation(Confirmed) Active Hypertension(Confirmed) Active Nephrolithiasis(Confirmed) Active Malignant neoplasm of tonsil(Confirmed) Active Multiple pulmonary nodules(Confirmed) Active DNR (do not resuscitate)(Confirmed) Active Obese class II(Confirmed) Active Osteopenia of femoral neck(Confirmed) Active NSAID long-term use(Confirmed) Active Social History Social History Type Response Smoking Status Former smoker, quit more than 30 days ago; Tobacco use times per day: social smoker; Started at age: 18; Stopped at age: 23; entered on: 06/29/21 Sex
--- OUTSIDE RECORDS SUMMARY | 2024-04-14 23:42 | XMS_ITS | Continuity of Care Document ---
Author Organization [facility] Address [address] [place] [address]- Care Team Providers Care Resource Paraprofessional Name Role Phone Aditya HU, Haley Brownlee Primary Care Physician Encounter [facility] [place] Date(s): 09/02/21 - 10/02/21 [facility] Adult [address] [place] [address]- Allergies, Adverse Reactions, Alerts No Known Allergies [...]
--- OUTSIDE RECORDS SUMMARY | 2024-04-14 23:42 | XMS_ITS | Continuity of Care Document ---
Author Organization [facility] Address [address] [place] [address]- Care Team Providers Care Manipulative Therapy Specialist Name Role Phone Cynthia SEGURA, Ricardo Nicole Primary Care Physician Encounter [facility] Date(s): 08/25/20 - 09/24/20 [facility] Adult [address] [place] [address]- Allergies, Adverse Reactions, Alerts Substance Reaction Severity Status NKA Active Immunizations Given and Recorded Vaccine Date Status Refusal Reason SARS-CoV-2 (COVID-19) mRNA BNT-162b2 vac 08/25/20 Given [...] Daily, # 90 tablet, 0 Refills, Maintenance, 08/25/20 13:23:00 EST, Tablet, [facility], 1 tablet By Mouth Daily, 156, cm, 12/27/19 12:57:00 EDT, Height Start Date: 08/25/20 Status: Ordered fenofibrate 160 mg oral tablet [...] Daily, # 90 capsule, 3 Refills, Maintenance, 09/03/20 8:29:00 EDT, EC Capsule, [facility], 156, cm, 12/27/19 12:57:00 EDT, Height Start Date: 09/03/20 Status: Ordered oxybutynin 10 mg/24 hr oral [...] (gastroesophageal reflu x disease)(Confirmed) Active Hypertension(Confirmed) Active Hypertension(Confirmed) Active Nephrolithiasis(Confirmed) Active Breast cancer, [...]
--- OUTSIDE RECORDS SUMMARY | 2024-04-14 23:42 | XMS_ITS | Continuity of Care Document ---
Author Organization [facility] Address [address] [place] [address] [address] [place] [address]- Care Team Providers Care Cement Mason Apprentice Name Role Phone Aditya PIN GAME MACHINE INSPECTOR, Haley Brownlee Primary Care Physician [place] [facility] [place] - 10/26/[address] [place] [address]- Attending Physician: Michelle SEGURA, Dariana Lin Referring Physician: Not on Staff, Referring MD Allergies, Adverse Reactions, Alerts No Known Allergies Immunizations Given and Recorded Vaccine Date Status Refusal Reason [id number] 12y+ bivalent booster vax 1 04/27/22 Given influenza virus vaccine, inactivated 04/09/22 Carrillo rded influenza virus vaccine, inactivated 02/17/21 Carrillo rded influenza virus vaccine, inactivated 03/23/18 Carrillo rded influenza virus vaccine, inactivated 04/01/17 Carrillo rded influenza virus vaccine, inactivated 03/18/16 Carrillo rded SARS-CoV-2 mRNA (xjtyfgf-pupe-pmlrd) vax 09/30/21 Recorded SARS-CoV-2 (COVID-19) mRNA BNT-162b2 [...] Given Parent Or Guardian Refuses 1Result Comment: [id number] Medications acetaminophen 160 mg/5 mL oral liquid 20 mL = 640 mg, By Mouth, 3 times a day, PRN Pain , Mild, Check temperature before using, # 480 mL,2 Refills, Maintenance, 12/22/21 14:32:00 EDT, Liquid, [facility] #[id number], Partial fill upon patient request if the prescription is for a sche... Start Date: 12/22/21 Status: Ordered cevimeline 30 mg oral capsule 1 capsule = 30 mg, By Mouth, 3 times a day, Stop taking Pilocarpine when taking this medication, # 90 capsule, 5 Refills, Maintenance, 06/14/22 11:18:00 EST, Capsule, [facility] #[id number], Partial fill upon patient request if the [...] 1 Refills, Maintenance, 07/16/22 11:49:00 EST, Tablet, [facility] #[id number], 156, cm, 07/14/22 10:10:00 EST, Height, 91.5, [...] Refills, Maintenance, 09/26/22 11:11:00 EDT, Tablet, [id number], Partial fill upon patient request if the [...] obesity (BMI 35.0-39.9) with comorbidity Confirmed Active Vital Signs Most recent to oldest [Reference Range]: 1 Height 155 cm (10/19/22 9:49 AM) Weight 87.5 kg (10/19/22 9:49 AM) Pulse Rate [55-90 bpm] 90 bpm (10/19/22 9:49 AM) Body Mass Index [18.5-24.99 kg/m2] 36.42 kg/m2 *>HHI* (10/19/22 9:49 AM) Blood Pressure [90-138/55-84 mm Hg] 142/ 81mm Hg *H* (10/19/22 9:49 AM) Temperature [96.8-100.4 DegF] 97.0 DegF (10/19/22 9:49 AM) Blood pressure sites Arm, left (10/19/22 9:49 AM) Temperature Route Temporal (10/19/22 9:49 AM) Weight Obtained Via Standing scale (10/19/22 9:49 AM) Social History Social History Type Response Smoking Status Former smoker, quit more than 30 days ago; Tobacco use times per day: social smoker; Started at age: 18; Stopped at age: 23; entered on: 06/29/21 Sex Patient Care team information Care Team Personnel Name: Camille Mathew RN Position: S RN Member Role: Primary Care Nurse Name: Haley Burgess NP Position: [facility] PCO Associate Professional Member Role: PCP Address: Address: [address] [place] [address]- Name: Poornima Martinez RN Position: S RN Member Role: Primary Care Nurse Name: Suhail Duckworth RN Position: [facility] RN Supv Member Role: Primary Care Nurse Name: Holli Ramos RN Position: S RN Member Role: Primary Care Nurse Name: Katina Samaniego Position: S RN Member Role: Primary Care Nurse Name: Felecia Hernandez RN Position: [facility] Onco RN Member Role: Primary Care Nurse Name: Verito Alonzo RN Position: [facility] RN Member Role: Primary Care Nurse Name: Minh Bryant RN Position: [facility] RN Member Role: Primary Care Nurse Care Team Related Persons Name: DA ZAINA Address: home [address] [place] [address]
--- OUTSIDE RECORDS SUMMARY | 2024-04-14 23:42 | XMS_ITS | Continuity of Care Document ---
Author Organization [facility] Address [address] [place] [address]- Care Team Providers Care Heater Helper Forge Name Role Phone Ricardo Marie MD Primary Care Physician Encounter 04/16/21 - 04/23/21 [facility] [address], [address] [place] [address]- Attending Physician: Ricardo Marie MD Admitting Physician: Ricardo Marie MD Referring Physician: Ricardo Marie MD Allergies, Adverse Reactions, [...]
--- OUTSIDE RECORDS SUMMARY | 2024-04-14 23:42 | XMS_ITS | Continuity of Care Document ---
Author Organization [facility] ter Address [address] [place] [address]- Care Team Providers Care Inking Machine Tender Name Role Phone Aditya MAYTE, Haley Brownlee Primary Care Physician [phone] Encounter [facility] Date(s): 11/24/22 - 11/24/[address] [address] Discharge Disposition: A-D/C Home Attending Physician: Cory Campbell MD Admitting Physician: Cory Campbell MD Referring Physician: Vicki Villasenor NP Allergies, Adverse Reactions, Alerts No Known Allergies Immunizations Given and Recorded Vaccine Date Status Refusal Reason [id number] 12y+ bivalent booster vax 1 04/27/22 Given influenza virus vaccine, inactivated 04/09/22 Carrillo rded influenza virus vaccine, inactivated 02/17/21 Carrillo rded influenza virus vaccine, inactivated 03/23/18 Carrillo rded influenza virus vaccine, inactivated 04/01/17 Carrillo rded influenza virus vaccine, inactivated 03/18/16 Carrillo rded SARS-CoV-2 mRNA ([id number]) vax 09/30/21 Recorded SARS-CoV-2 (COVID-19) mRNA BNT-162b2 [...] Given Parent Or Guardian Refuses 1Result Comment: [id number] Medications 1 breast prosthesis and three bras [...] mL,2 Refills, Maintenance, 12/22/21 14:32:00 EDT, Liquid, [facility] #[id number], Partial fill upon patient request if the prescription is for a sche... Start Date: 12/22/21 Status: Ordered cevimeline 30 mg oral capsule 1 capsule = 30 mg, By Mouth, 3 times a day, Stop taking Pilocarpine when taking this medication, # 90 capsule, 5 Refills, Maintenance, 06/14/22 11:18:00 EST, Capsule, [facility] #[id number], Partial fill upon patient request if the [...] 1 Refills, Maintenance, 07/16/22 11:49:00 EST, Tablet, [facility] #[id number], 156, cm, 07/14/22 10:10:00 EST, Height, 91.5, [...] (BMI 35.0-39.9) with comorbidity Confirmed Active Results Radiology Reports * Exam Date Time Procedure Performing Provider Status 11/24/22 8:47 AM IR End of Case Report David fied IR End of Case Report * Exam Date Time Procedure Performing Provider Status 11/24/22 8:47 AM IR Venous Access Device Removal Auth (Verified) Notes: (IR Venous Access Device Removal) Reason For Exam: PORT removal tx complete;Other: IR Venous Access Device Removal Patient: OBINNA RIOS Study Date: 11/24/2022 Performing: Armand Carreno PA-C Referring: : 1945 Age: 77 Gender: FEMALE Pre-procedure diagnosis and Indication: History of colon cancer, patient presents for port removal following completion of therapy. Exam: Prior to the procedure, the patient was seen and the nature of the procedure explained along with its attendant risks and benefits to the patient . Informed consent was obtained from, the patient . The patient underwent a pre-anesthesia assessment. The patient arrived in IR room 1 for a portacath removal PROCEDURE: The patient was positioned supine and secured with arm boards. The access site was evaluated, then prepped with chloraprep and draped in the usual sterile fashion. Local anesthetic was given and the port was removed using blunt dissection. A pre-pectoral subcutaneous Port pocket was flushed with saline, and the port pocket was closed using 2-0 vicryl suture x 1 and and tissue adhesive was used on the access site. patient tolerated the procedure well with no complications of the procedure No attending physician assisted with this procedure. estimated blood loss was minimal Specimens/samples: no specimens or samples were sent for this procedure [place] [id number] Post procedure instructions sent in envelope with the patient Impression: Satisfactory removal of chest port with dissection patient tolerated the procedure well with no complications of the procedure Fluoroscopy time and dose Total Fluoro Time: 0 mins Total dose 0 mGy Total DAP 0 - ?Gy/m2 No contrast was used for this procedure Local Anesthetic Lidocaine 1% w/ 4.2% sodium bicarbonate 10 ml's SQ Sensorcaine 0.5% w/ 1:200,000 Epi 10 ml's SQ Moderate Sedation Agent Dose Route Time By Versed 1 mg IV 09:08:52 YARON Signed By Armand Carreno PA-C On 11/24/2022 13:26:50 Armand Carreno PA-C, Njogu MD Dictated By: Armand Armenta Dictated Date/Time: 11/24/22 8:47 am Reviewed By: Armand Armenta Signed By: Armand Armenta Signed Date/Time: 11/24/22 8:47 am Transcribed By: STEFANI Transcribed Date/Time: 11/24/22 8:47 am Vital Signs Most recent to oldest [Reference Range]: 1 Height 153 cm (11/24/22 8:05 AM) Weight 85.9 kg (11/24/22 8:05 AM) Oxygen Saturation [94-100 %] 97 % (11/24/22 7:58 AM) Pulse Rate [55-90 bpm] 86 bpm (11/24/22 7:58 AM) Blood Pressure [90-138/55-84 mm Hg] 132/ 69mm Hg (11/24/22 7:58 AM) Respiratory Rate [16-30 br/min] 18 br/mi n (11/24/22 7:58 AM) Temperature [96.8-100.4 DegF] 97.9 DegF (11/24/22 7:58 AM) Mode of Delivery (Oxygen) Room air (11/24/22 7:58 AM) Blood pressure sites Arm, left (11/24/22 7:58 AM) Temperature Route Oral (11/24/22 7:58 AM) Social History Social History Type Response Smoking Status Former smoker, quit more than 30 days ago; Tobacco use times per day: social smoker; Started at age: 18; Stopped at age: 23; entered on: 06/29/21 Sex Hospital Progress note * Minh Bryant RN: PERFORM, SIGN, VERIFY Event Display: Progress Note Hospital Authored Date: Patient: OBINNA RIOS Age: 77 years Sex: Female : 1945 Associated Diagnoses: None Author: Minh Bryant RN Findings Narrative/Incidental Pt returned to unit via stretcher, A/Ox4, R chest DSD remains CDI, tolerating PO diet, frequent vitals stable, able to teach back d/c instructions, L AC IV d/c'd catheter tip intact, wheeled off unitfor d.c home.. * Minh Bryant RN: PERFORM, SIGN, VERIFY Event Display: Progress Note Hospital Authored Date: [id number] Patient: OBINNA RIOS Age: 77 years Sex: Female : 1945 Associated Diagnoses: None Author: Minh Bryant RN Findings Narrative/Incidental Pt A/Ox4, NPO since midnight except for meds, home med review completed, recurring and pre procedure checklists charted in CIS, L AC IV placed, blood drawn and sent to lab, EMLA applied, wheeled off unit via stretcher to procedure area.. Note * Minh Bryant RN: PERFORM Event Display: Discharge/Transfer Note Hospital Authored Date: [id number] Nursing Discharge Note Entered On: 11/24/2022 10:39 EDT Performed On: 11/24/2022 10:39 EDT by Minh Bryant RN Nursing Discharge Note 2 Discharge Time : 11/24/2022 10:39 EDT Discharge Level of Care at Discharge : Home/Penitentiary/Foster Care Patient Left Unit Via : Wheelchair Patient Accompanied Off Unit with : Responsible adult DC Instructions Provided & Signed by Pt : Yes Patient Understands D/C Instructions : Yes Patient Instructions Discharge Signed : Yes Did Pt have Specialty Bed or Wound Vac : No Minh Bryant RN - 11/24/2022 10:39 EDT Radiology * Event Display: IR End of Case Report * Armand Armenta: VERIFY, PERFORM, TRANSCRIBE, VERIFY Event Display: Result: Authored Date: [id number] Patient: OBINNA RIOS Study Date: 11/24/2022 Performing: Armand Carreno PA-C Referring: : 1945 Age: 77 Gender: FEMALE Pre-procedure diagnosis and Indication: History of colon cancer, patient presents for port removal following completion of therapy. Exam: Prior to the procedure, the patient was seen and the nature of the procedure explained along with its attendant risks and benefits to the patient . Informed consent was obtained from, the patient . The patient underwent a pre-anesthesia assessment. The patient arrived in IR room 1 for a portacath removal PROCEDURE: The patient was positioned supine and secured with arm boards. The access site was evaluated, then prepped with chloraprep and draped in the usual sterile fashion. Local anesthetic was given and the port was removed using blunt dissection. A pre-pectoral subcutaneous Port pocket was flushed with saline, and the port pocket was closed using 2-0 vicryl suture x 1 and and tissue adhesive was used on the access site. patient tolerated the procedure well with no complications of the procedure No attending physician assisted with this procedure. estimated blood loss was minimal Specimens/samples: no specimens or samples were sent for this procedure [place] [address] Post procedure instructions sent in envelope with the patient Impression: Satisfactory removal of chest port with dissection patient tolerated the procedure well with no complications of the procedure Fluoroscopy time and dose Total Fluoro Time: 0 mins Total dose 0 mGy Total DAP 0 - ?Gy/m2 No contrast was used for this procedure Local Anesthetic Lidocaine 1% w/ 4.2% sodium bicarbonate 10 ml's SQ Sensorcaine 0.5% w/ 1:200,000 Epi 10 ml's SQ Moderate Sedation Agent Dose Route Time By Versed 1 mg IV 09:08:52 YARON Signed By Armand Carreno PA-C On 11/24/2022 13:26:50 Armand Carreno PA-C, Njogu MD Dictated By: Armand Armenta Dictated Date/Time: 11/24/22 8:47 am Reviewed By: Armand Armenta Signed By: Armand Armenta Signed Date/Time: 11/24/22 8:47 am Transcribed By: STEFANI Transcribed Date/Time: 11/24/22 8:47 am Patient Care team information Care Team Personnel Name: Camille Mathew RN Position: S RN Member Role: Primary Care Nurse Name: Haley Burgess NP Position: [facility] Associate Professional Member Role: PCP Address: Address: [address] [place] [address]- Name: Poornima Martinez RN Position: S RN [...] Team Related Persons Name: ZAINA ROBERSON Address: [address] [address]
--- OUTSIDE RECORDS SUMMARY | 2024-04-14 23:42 | XMS_ITS | Continuity of Care Document ---
Author Organization [facility] Leonid Sergo lt Address [address] [place] [address]- Care Team Providers Care Stroboroma Operator Name Role Phone Aditya HU, Haley Brownlee Primary Care Physician Encounter [facility] Date(s): 06/29/21 - 07/06/21 [facility] Adult [address] [place] [address]- Encounter Diagnosis Annual physical exam(Discharge Diagnosis) - 06/28/21 Hypertension(Discharge Diagnosis) - 06/28/21 Chronic kidney disease (CKD) stage G3a/Ax(Discharge Diagnosis) - 06/28/21 Morbid obesity(Discharge Diagnosis) - 06/28/21 Dyslipidemia(Discharge Diagnosis) - 06/28/21 GERD (gastroesophageal reflux disease)(Discharge Diagnosis) - 06/28/21 History of breast cancer (right breast) 1997 S/P umpectomy and radiation (Discharge Diagnosis) - 06/28/21 Multiple pulmonary nodules(Discharge Diagnosis) - 06/28/21 Degenerative lumbar disc(Discharge Diagnosis) - 06/28/21 OAB (overactive bladder)(Discharge Diagnosis) - 06/29/21 Advanced directives, counseling/discussion(Discharge Diagnosis) - 06/29/21 DNR (do not resuscitate)(Discharge Diagnosis) - 06/29/21 Attending Physician: Haley Burgess NP Referring Physician: [...] 2019(Confirmed) Active DNR (do not resuscitate)(Confirmed) Active NSAID long-term use(Confirmed) Active Severe obesity(Confirmed) Active Diagnosis Diagnosis Type Effective Dates Health Status Clinical Service Informant Annual physical exam Discharge Diagnosis 06/28/21 Hypertension Discharge Diagnosis 06/28/21 Chronic kidney disease (CKD) stage G3a/Ax Discharge Diagnosis 06/28/21 Morbid obesity Discharge Diagnosis 06/28/21 Dyslipidemia Discharge Diagnosis 06/28/21 GERD (gastroesophageal reflux disease) Discharge Diagnosis 06/28/21 Multiple pulmonary nodules Discharge Diagnosis 06/28/21 Non-Specified History of breast cancer (right breast) 1996 S/P umpectomy and radiation Discharge Diagnosis 06/28/21 Degenerative lumbar disc Discharge Diagnosis 06/28/21 OAB (overactive bladder) Discharge Diagnosis 06/29/21 Advanced directives, counseling/discussi on Discharge Diagnosis 06/29/21 DNR (do not resuscitate) Discharge Diagnosis 06/29/21 Procedures Procedure Date Related Diagnosis Body Site Status Ultrasonography of retroperi toneum- Small bilateral parapelvic cysts. No definite nephrolithiasis. Normal bladder. 1 03/16/21 Completed MRI of lumbar spine- Degener ative changes. Degenerative disc disease is greatest at L1-L2, though there is no significant stenosis at this level. Stenosis is greatest at L4-L5, with moderate central stenosis and crowding of traversing left L5 nerve roots. 2 03/12/[address] of chest- No change in mu ltiple pulmonary nodules, largest measuring 6 mm in the lateral basal right lower lobe with punctate internal cavitation. Continued follow-up is recommended.No change in additional incidental findings including fat-containing l 3 01/01/19 Completed Chest X-ray- Posterior left lower lobe rounded opacity is concerning for lung mass. Further evaluation with CT is recommended. 08/21/18 Completed Bone density scan- osteopeni a FRAX 78/0.9 4 02/26/15 Completed Bilateral replacement of knee joints 04/2011 Completed Lumpectomy of right breast 1995 Completed 1Small bilateral parapelvic cysts. No definite nephrolithiasis. Normal bladder. 2Degenerative changes. Degenerative disc disease is greatest at L1-L2, though there is no significant stenosis at this level. Stenosis is greatest at L4-L5, with moderate central stenosis and crowdingof traversing left L5 nerve roots. 3No change in multiple pulmonary nodules, largest measuring 6 mm in the lateral basal right lower lobe with punctate internal cavitation. Continued follow-up is recommended.No change in additional incidental findings including fat-containing left Bochdalek hernia, posterior gastric diverticulum, andpost surgical changes from right lumpectomy and axillary lymph node dissection. 4Region BMD T-score Z-score Classification AP Spine (L3 L4) 0.937 -1.5 0.7 Osteopenic Femoral Neck (Right) 0.701 -1.3 0.5 Osteopenic Total Hip (Right) 0.896 -0.4 1.1 Normal . 10-year Fracture Risk(1) Major Osteoporotic Fracture 7.8 Hip Fracture 0.9 Vital Signs Most recent to oldest [Reference Range]: 1 2 Height 156.0 cm (06/29/21 10:50 AM) 156.0 cm (06/29/21 10:07 AM) Weight 109 kg (06/29/21 10:50 AM) Oxygen Saturation [94-100 %] 98 % (06/29/21 10:07 AM) Pulse Rate [55-90 bpm] 90 bpm (06/29/21 10:07 AM) Body Mass Index [18.5-24.99] 44.79 *>HHI* (06/29/21 10:50 AM) Blood Pressure [90-138/55-84 mm Hg] 122/ 70mm Hg (06/29/21 10:07 AM) Respiratory Rate [16-30 br/min] 18 br/mi n (06/29/21 10:07 AM) Temperature [96.8-100.4 DegF] 98.6 DegF (06/29/21 10:07 AM) Mode of Delivery (Oxygen) Room air (06/29/21 10:07 AM) Blood pressure sites Arm, left (06/29/21 10:07 AM) Temperature Route Oral (06/29/21 10:07 AM) Weight Obtained Via Patient/family state d (06/29/21 10:50 AM) Social History Social History Type Response Smoking Status Former smoker, quit more than 30 days ago; Tobacco use times per day: social smoker; Started at age: 18; Stopped at age: 23; entered on: 06/29/21 Sex
--- OUTSIDE RECORDS SUMMARY | 2024-04-14 23:42 | XMS_ITS | Continuity of Care Document ---
Author Organization [facility] ter Address [address] [place] [address]- Care Team Providers Care Physician Office Rep Name Role Phone Ricardo Marie MD Primary Care Physician Encounter [facility] Date(s): 01/10/20 - 02/10/[address] [address]- [facility] Attending Physician: Lois Neal MD Admitting Physician: Lois Neal MD Allergies, Adverse Reactions, Alerts Substance Reaction [...]
--- OUTSIDE RECORDS SUMMARY | 2024-04-14 23:42 | XMS_ITS | Continuity of Care Document ---
Author Organization [facility] ter Address [address] [place] [address]- Care Team Providers Care Stock Trader Name Role Phone Aditya Haley HU Primary Care Physician [phone] Encounter [facility] Date(s): 12/14/21 - 12/14/[address] [address] Discharge Disposition: A-D/C Home Attending Physician: Ezra Burrows MD, V Admitting Physician: Ezra Burrows MD, V Referring Physician: Ezra Burrows MD, V Allergies, Adverse Reactions, Alerts No Known Allergies [...] 0 Refills, Soft Stop, 11/30/21 16:17:00 EDT, [facility] #[id number], Partial fill upon patient request if the [...] tablet, 1 Refills, Maintenance, 11/30/21 8:53:00 EDT, [facility] #[id number], Partial fill upon patient request if the [...] tablet, 0 Refills, Maintenance, 11/30/21 8:53:00 EDT, [facility] #[id number], Partial fill upon patient request if the prescription is for a schedule II o... Start Date: 11/30/21 Status: Ordered traMADol 50 mg oral tablet 1 tablet = 50 mg, By Mouth, Every 12 hours, PRN as needed for pain, # 8 tablet, 0 Refills, Maintenance, 11/25/21 14:58:00 EDT, Tablet, [facility] #[id number], Partial fill upon patient request if the [...] oldest [Reference Range]: 1 Height 155 cm (12/14/21 10:42 AM) Weight 100 kg (12/14/21 10:42 AM) Oxygen Saturation [94-100 %] 98 % (12/14/21 10:41 AM) Pulse Rate [55-90 bpm] 85 bpm (12/14/21 10:41 AM) Blood Pressure [90-138/55-84 mm Hg] 132/ 66mm Hg (12/14/21 10:41 AM) Respiratory Rate [16-30 br/min] 18 br/mi n (12/14/21 10:41 AM) Temperature [96.8-100.4 DegF] 97.9 DegF (12/14/21 10:41 AM) Mode of Delivery (Oxygen) Room air (12/14/21 10:41 AM) Blood pressure sites Arm, right (12/14/21 10:41 AM) Temperature Route Temporal (12/14/21 10:41 AM) Dry Weight 100 kg (12/14/21 10:42 AM) Social History Social History Type Response Smoking Status Former smoker, quit more than 30 days ago; Tobacco use times per day: social smoker; Started at age: 18; Stopped at age: 23; entered on: 06/29/21 Sex
--- OUTSIDE RECORDS SUMMARY | 2024-04-14 23:42 | XMS_ITS | Continuity of Care Document ---
Author Organization [facility] Address [address] [place] [address]- Care Team Providers Care Maintenance Millwright Name Role Phone Aditya Haley HU Primary Care Physician [phone] Encounter [facility] Date(s): 05/11/22 - 06/10/22 [facility] [address] [place] [id number] Allergies, Adverse Reactions, Alerts No Known Allergies Immunizations Given and Recorded Vaccine Date Status Refusal Reason [id number] 12y+ bivalent booster vax 1 04/27/22 Given influenza virus vaccine, inactivated 04/09/22 Carrillo rded influenza virus vaccine, inactivated 02/17/21 Carrillo rded influenza virus vaccine, inactivated 03/23/18 Carrillo rded influenza virus vaccine, inactivated 04/01/17 Carrillo rded influenza virus vaccine, inactivated 03/18/16 Carrillo rded SARS-CoV-2 mRNA ([id number]) vax 09/30/21 Recorded SARS-CoV-2 (COVID-19) mRNA BNT-162b2 [...] Given Parent Or Guardian Refuses 1Result Comment: [id number] Medications acetaminophen 160 mg/5 mL oral liquid 20 mL = 640 mg, By Mouth, 3 times a day, PRN Pain , Mild, Check temperature before using, # 480 mL,2 Refills, Maintenance, 12/22/21 14:32:00 EDT, Liquid, [facility] #[id number], Partial fill upon patient request if the prescription is for a sche... Start Date: 12/22/21 Status: Ordered cevimeline 30 mg oral capsule 1 capsule = 30 mg, By Mouth, 3 times a day, for 14 days, Stop taking Pilocarpine when taking this medication, # 42 capsule, 0 Refills, Hard Stop 06/14/22 11:18:00 EST, 05/31/22 11:18:00 EST, [facility] #[id number], Partial fill upon edita... Start Date: 05/31/22 Stop Date: 06/14/22 Status: Ordered cevimeline 30 mg oral capsule 1 capsule = 30 mg, By Mouth, 3 times a day, Stop taking Pilocarpine when taking this medication, # 90 capsule, 5 Refills, Maintenance, 06/14/22 11:18:00 EST, [facility] #[id number], Partial fill upon patient request if the prescription i... Start Date: 06/14/22 Stop Date: 12/11/22 Status: Ordered lidocaine-prilocaine 2.5%-2.5% topical cream 1 application, Topically, Once, use 40 min before port access, # 30 Gm, 0 Refills, Soft Stop, 11/30/21 16:17:00 EDT, [facility] #[id number], Partial fill upon patient request if the [...] Care Nurse Name: Haley Burgess NP Position: [facility] Associate Professional Member Role: PCP Address: Address: [address] [place] [address]- Name: Suhail Duckworth RN Position: S RN [...] Persons Name: ZAINA ROBERSON Address: home [address] [place] [address]
--- OUTSIDE RECORDS SUMMARY | 2024-04-14 23:42 | XMS_ITS | Continuity of Care Document ---
Author Organization [facility] Sal Jaquez Sergo Address [address] [place] [address]- Care Team Providers Care Cube Cutter Name Role Phone Aditya MANAGER UNITHaley Primary Care Physician Encounter [facility] Date(s): 10/28/22 - 11/27/22 [facility] Adult [address] [place] [address]- Allergies, Adverse Reactions, Alerts No Known Allergies Immunizations Given and Recorded Vaccine Date Status Refusal Reason [id number] 12y+ bivalent booster vax 1 04/27/22 Given influenza virus vaccine, inactivated 04/09/22 Carrillo rded influenza virus vaccine, inactivated 02/17/21 Carrillo rded influenza virus vaccine, inactivated 03/23/18 Carrillo rded influenza virus vaccine, inactivated 04/01/17 Carrillo rded influenza virus vaccine, inactivated 03/18/16 Carrillo rded SARS-CoV-2 mRNA ([id number]) vax 09/30/21 Recorded SARS-CoV-2 (COVID-19) mRNA BNT-162b2 [...] Given Parent Or Guardian Refuses 1Result Comment: [id number] Medications 1 breast prosthesis and three bras [...] mL,2 Refills, Maintenance, 12/22/21 14:32:00 EDT, Liquid, [facility] #[id number], Partial fill upon patient request if the prescription is for a sche... Start Date: 12/22/21 Status: Ordered cevimeline 30 mg oral capsule 1 capsule = 30 mg, By Mouth, 3 times a day, Stop taking Pilocarpine when taking this medication, # 90 capsule, 5 Refills, Maintenance, 06/14/22 11:18:00 EST, Capsule, [facility] #[id number], Partial fill upon patient request if the [...] 1 Refills, Maintenance, 07/16/22 11:49:00 EST, Tablet, [facility] #[id number], 156, cm, 07/14/22 10:10:00 EST, Height, 91.5, [...] 0 Refills, Maintenance, 09/26/22 11:11:00 EDT, Tablet, [facility]/pharmacy #[id number], Partial fill upon patient [...] Team Personnel Name: Camille Mathew RN Position: [facility] RN Member Role: Primary Care Nurse Name: Haley Burgess NP Position: [facility] Associate Professional Member Role: PCP Address: Address: [address] [place] [address] Name: Poornima Martinez RN Position: S RN Member Role: Primary Care Nurse Name: Suhail Duckworth RN Position: [facility] RN Supv Member Role: Primary Care Nurse Name: Katina Samaniego Position: S RN Member Role: Primary Care Nurse Name: Felecia Hernandez RN Position: [facility] Onco RN Member Role: Primary Care Nurse Name: Verito Alonzo RN Position: S RN Member Role: Primary Care Nurse Name: Minh Bryant RN Position: S RN Member Role: Primary Care Nurse Care Team Related Persons Name: ZAINA ROBERSON Address: home [address] [place] [address]
--- OUTSIDE RECORDS SUMMARY | 2024-04-14 23:42 | XMS_ITS | Continuity of Care Document ---
Author Organization [facility] Address [address] [place] [address]- Care Team Providers Care Java J2Ee Technical Lead Name Role Phone Ricardo Marie MD Primary Care Physician [phone] Encounter 04/15/20 - 04/22/20 [facility] [address], [address] [place] [address]- [phone] Attending Physician: Ricardo Marie MD Admitting Physician: [...]
--- OUTSIDE RECORDS SUMMARY | 2024-04-14 23:42 | XMS_ITS | Continuity of Care Document ---
Author Organization [facility] ter Address [address] [place] [id number]- Care Team Providers Care Communications Operator Name Role Phone Aditya Haley HU Primary Care Physician [phone] Encounter [facility] Date(s): 01/26/22 - 01/26/[address] [id number] Discharge Disposition: A-D/C Home Attending Physician: Scott Silva MD Admitting Physician: Scott Silva MD Referring Physician: Macy Irene Allergies, Adverse Reactions, Alerts No Known Allergies Immunizations Given and Recorded Vaccine Date Status Refusal Reason SARS-CoV-2 mRNA ([id number]) vax 09/30/21 Recorded SARS-CoV-2 (COVID-19) mRNA BNT-162b2 [...] mL,2 Refills, Maintenance, 12/22/21 14:32:00 EDT, Liquid, [facility] #[id number], Partial fill upon patient request if the prescription is for a sche... Start Date: 12/22/21 Status: Ordered cetirizine 1 mg/mL oral syrup 10 mL = 10 mg, By Mouth, Daily, PRN Itch, replaces benadryl, # 120 mL, 0 Refills, Maintenance, 12/28/21 10:47:00 EDT, Syrup, [facility] #[id number], 154.94, cm, 12/28/21 10:31:00 EDT, Height, 97.6, kg, 12/23/21 12:27:00 EDT, Dry Weight Start Date: 12/28/21 Stop Date: 01/11/22 Status: Ordered lidocaine-prilocaine 2.5%-2.5% topical cream 1 application, Topically, Once, use 40 min before port access, # 30 Gm, 0 Refills, Soft Stop, 11/30/21 16:17:00 EDT, Cream, [facility] #[id number], Partial fill upon patient request if the [...] Refills 5, Tot. Refills 5, Maintenance, Benadryl [id number]+Nystatin susp(100,000 u/ml)4oz+Visc.Lido2%100ml+Mylanta 8oz. 5-10cc swish+spit/swallow Q2 hr PRN mouth-throat pain., 12/16/21 9:44:00 EDT, Compou... Start Date: 12/16/21 Status: Ordered MiraLax oral powder for reconstitution = 17 Gm, By Mouth, Daily, dissolve in water before taking, # 527 Gm, 1 Refills, Maintenance, 01/01/22 9:53:00 EDT, REC Powder, [facility] #[id number], Partial fill upon patient request if the prescription is for a schedule II opioid drug., 17 Gm... Start Date: 01/01/22 Status: Ordered [facility] Rx Refills 0, Maintenance, [facility], 10/27/21 14:50:00 EDT, Supply Start Date: 10/27/21 Status: Ordered omeprazole 2 mg/mL oral suspension 10 mL = 20 mg, By Mouth, Daily, or give through G-tube, # 300 mL, 2 Refills, Maintenance, 01/08/22 13:02:00 EDT, Suspension, [facility], Partial fill upon patient request if the prescription is for a schedule II opioid drug., 154.94, cm,... Start Date: 01/08/22 Status: Ordered ondansetron 4 mg oral tablet, disintegrating 1 tablet = 4 mg, By Mouth, Every 8 hours, PRN as needed for nausea/vomiting, # 30 tablet, 1 Refills, Maintenance, 01/26/22 13:41:00 EDT, DIS Tablet, [facility] #[id number], Patient not tolerating PO. Partial fill upon patient request if the presc... Start Date: 01/26/22 Status: Ordered oxyCODONE 5 mg/5 mL oral solution 5 mL = 5 mg, G Tube, Every 4 hours, PRN Pain , Severe, # 60 mL, 0 Refills, Maintenance, 01/26/22 13:41:00 EDT, Solution, [facility] #[id number], Patient nt tolerating PO. Partial fill upon patient request if the prescription is for a schedule II... Start Date: 01/26/22 Status: Ordered Silvadene 1% cream 1 application, Topically, 2 times a day, # 400 Gm, 1 Refills, Acute 04/18/22 13:59:00 EDT, 01/18/2213:59:00 EDT, Cream, [facility] #[id number], Partial fill upon patient request if the prescription is for a schedule II opioid drug., 1 applicatio... Start Date: 01/18/22 Stop Date: 04/18/22 Status: Ordered sucralfate 1 gm oral tablet See Instructions, DISSOLVE 1 TABLET IN 10 ML WARM WATER AND DRINK THREE TIMES DAILY BEFORE A MEAL, # 270 tablet, Refills 0, Instructions Replace Required Details, Route to Pharmacy Electronically, [facility] #[id number], 154.94, cm, 01/05/22 14:3... Start Date: 01/11/22 Status: Ordered Problem List Condition Effective Dates Status Health Status Inform ant Allergic rhinitis(Confirmed) Active OAB (overactive bladder)(Confirmed) Active Chronic kidney disease (CKD) stage G3a/Ax(Confirmed) Active Bochdalek hernia(Confirmed) Active Degenerative lumbar disc(Confirmed) Active Gastrostomy tube dependent(Confirmed) Active Dyslipidemia(Confirmed) Active GERD (gastroesophageal reflu x disease)(Confirmed) Active History of breast cancer ([facility] breast) 1996 S/P umpectomy and radiation(Confirmed) Active Hypertension(Confirmed) Active Nephrolithiasis(Confirmed) Active Malignant neoplasm of tonsil(Confirmed) Active Multiple pulmonary nodules(Confirmed) Active DNR (do not resuscitate)(Confirmed) Active Obese class II(Confirmed) Active Osteopenia of femoral neck(Confirmed) Active NSAID long-term use(Confirmed) Active Vital Signs Most recent to oldest [Reference Range]: 1 Height 156 cm (01/26/22 7:42 AM) Weight 92.7 kg (01/26/22 7:42 AM) Oxygen Saturation [94-100 %] 95 % (01/26/22 7:42 AM) Pulse Rate [55-90 bpm] 105 bpm *H* (01/26/22 7:42 AM) Body Mass Index [18.5-24.99] 38.09 *>HHI* (8/9/22 7:42 AM) Blood Pressure [90-138/55-84 mm Hg] 122/ 67mm Hg (01/26/22 7:42 AM) Respiratory Rate [16-30 br/min] 20 br/mi n (01/26/22 7:42 AM) Temperature [96.8-100.4 DegF] 99.2 DegF (01/26/22 7:42 AM) Mode of Delivery (Oxygen) Room air (01/26/22 7:42 AM) Blood pressure sites Arm, left (01/26/22 7:42 AM) Temperature Route Oral (01/26/22 7:42 AM) Dry Weight 92.7 kg (01/26/22 7:42 AM) Weight Obtained Via Standing scale (01/26/22 7:42 AM) Dry Weight Obtained Via Standing scale (01/26/22 7:42 AM) Social History Social History Type Response Smoking Status Former smoker, quit more than 30 days ago; Tobacco use times per day: social smoker; Started at age: 18; Stopped at age: 23; entered on: 06/29/21 Sex
--- OUTSIDE RECORDS SUMMARY | 2024-04-14 23:42 | XMS_ITS | Continuity of Care Document ---
Author Organization [facility] Leonid Sergo lt Address [address] [place] [address]- Care Team Providers Care Equity Manager Name Role Phone Aditya COVERSTITCH MACHINE OPERATORHaley Primary Care Physician Encounter [facility] Date(s): 02/29/24 - 03/30/24 [facility] [place] [facility] [address] [place] [address]- Allergies, Adverse Reactions, Alerts No Known Allergies [...] virus vaccine, inactivated 03/18/16 Carrillo rded SARS-CoV-2(COVID-19)mRNA-LNP vac([id number]) 04/09/23 Recorded pneumococcal 20-valent conjugate vaccine 1 01/17/23 Given [id number] 12y+ bivalent booster vax 2 04/27/22 Given SARS-CoV-2 mRNA ([id number]-[id number]) vax 09/30/21 Recorded SARS-CoV-2 (COVID-19) mRNA BNT-162b2 [...] pneumococcal 13-valent vaccine 06/20/15 Recorded 1Result Comment: [id number] 2Result Comment: [id number] Medications Acetaminophen take 2 tabs in AM & 1 QHS, 0 Refills, Maintenance, 01/16/24 9:54:00 EDT, Partial fill upon patient request if the prescription is for a schedule II opioid drug. Start Date: 01/16/24 Status: Ordered cevimeline 30 mg oral capsule 1 capsule, By Mouth, 3 times a day, # 90 capsule, 5 Refills, Maintenance, 03/01/24 12:29:00 EDT, [id number], 154, cm, 01/16/24 9:26:00 EDT, Height, 95.2, kg, 10/13/23 14:03:00 EDT, Dry Weight Start Date: 03/01/24 Status: Ordered fenofibrate 160 mg oral tablet [...] 6 Refills, Maintenance, 04/14/23 18:52:00 EDT, Paste, [facility]/pharmacy #[id number], Partial fill upon patient request if the [...] Care Nurse Name: Haley Burgess NP Position: [facility] Associate Professional Member Role: PCP Address: Address: [address] [place] [address]- [place] Name: Poornima Martinez RN Position: S RN Member Role: Primary Care Nurse Name: Suhail Duckworth RN Position: [facility] RN Supv Member Role: Primary Care Nurse Name: Holli Ramos RN Position: S RN Member Role: Primary Care Nurse Name: Katina Samaniego RN Position: S RN Member Role: Primary Care Nurse Name: Felecia Hernandez RN Position: [facility] Onco RN Member Role: Primary Care Nurse Name: Verito Alonzo NP Position: [facility] Associate Professional Member Role: Primary Care Nurse Address: Address: [address] [place] [address] [facility] [place] [address]- [place] Name: Minh Bryant RN Position: S RN Member Role: Primary Care Nurse Care Team Related Persons Name: ZAINA ROBERSON Address: home [address] [place] [id number]
--- OUTSIDE RECORDS SUMMARY | 2024-04-14 23:42 | XMS_ITS | Continuity of Care Document ---
Author Organization [facility] Leonid Sergo lt Address [address] [place] [address]- Care Team Providers Care Vault Cashier Name Role Phone Aditya HOME CARE PHYSICAL THERAPIST, Haley Brownlee Primary Care Physician Encounter [facility] [place] Date(s): 04/27/22 - 05/27/22 [facility] [place] [facility] [address] [place] [address]- Attending Physician: Admtr, Rich8 Admitting Physician: Admtr, Ar8 Referring Physician: Admtr, Ar8 Allergies, Adverse Reactions, Alerts No Known Allergies Immunizations Given and Recorded Vaccine Date Status Refusal Reason [id number] 12y+ bivalent booster vax 1 04/27/22 Given influenza virus vaccine, inactivated 04/09/22 Carrillo rded influenza virus vaccine, inactivated 02/17/21 Carrillo rded influenza virus vaccine, inactivated 03/23/18 Carrillo rded influenza virus vaccine, inactivated 04/01/17 Carrillo rded influenza virus vaccine, inactivated 03/18/16 Carrillo rded SARS-CoV-2 mRNA (divgvlv-smso-maifw) vax 09/30/21 Recorded SARS-CoV-2 (COVID-19) mRNA BNT-162b2 [...] Given Parent Or Guardian Refuses 1Result Comment: [id number] Medications acetaminophen 160 mg/5 mL oral liquid 20 mL = 640 mg, By Mouth, 3 times a day, PRN Pain , Mild, Check temperature before using, # 480 mL,2 Refills, Maintenance, 12/22/21 14:32:00 EDT, [facility] #[id number], Partial fill upon patient request if the prescription is for a sche... Start Date: 12/22/21 Status: Ordered cevimeline 30 mg oral capsule 1 capsule = 30 mg, By Mouth, 3 times a day, Stop taking Pilocarpine when taking this medication, # 42 capsule, 0 Refills, Maintenance, 05/11/22 11:52:00 EST, Capsule, [facility] #[id number], Partial fill upon patient request if the prescription i... Start Date: 05/11/22 Stop Date: 05/25/22 Status: Ordered lidocaine-prilocaine 2.5%-2.5% topical cream 1 application, Topically, Once, use 40 min before port access, # 30 Gm, 0 Refills, Soft Stop, 11/30/21 16:17:00 EDT, [facility][id number], Partial fill upon patient request if the [...] Confirmed Active NSAID long-term use Confirmed Active Social History Social History Type Response Smoking Status Former smoker, quit more than 30 days ago; Tobacco use times per day: social smoker; Started at age: 18; Stopped at age: 23; entered on: 06/29/21 Sex Note * Event Display: IR Special Procedures, Non-BH Authored Date: * Event Display: IR Special Procedures, Non-BH Authored Date: * Event Display: Non BH Lab Results Authored Date: * Event Display: Non BH Lab Results Authored Date: * Event Display: Non BH Lab Results Authored Date: Patient Care team information Care Team Personnel Name: Camille Mathew RN Position: S RN Member Role: Primary Care Nurse Name: Haley Burgess NP Position: [facility] Associate Professional Member Role: PCP Address: Address: [address] [place] [address]- Name: Suhail Duckworth RN Position: S RN [...] Team Related Persons Name: ZAINA ROBERSON Address: [address] [address]
--- OUTSIDE RECORDS SUMMARY | 2024-04-14 23:42 | XMS_ITS | Continuity of Care Document ---
Author Organization [facility] Address Unknown Care Team Providers Care Imaging Tech Name Role Phone Aditya Haley HU Primary Care Physician [place] [facility] 09/28/21 - 10/28/21 [facility] Allergies, Adverse Reactions, Alerts No Known Allergies [...]
--- OUTSIDE RECORDS SUMMARY | 2024-04-14 23:42 | XMS_ITS | Continuity of Care Document ---
Author Organization [facility] Leonid Sergo lt Address [address] [place] [address]- Care Team Providers Care Paint Line Operator Name Role Phone Aditya AQUATICS ASSISTANT DEPARTMENT HEADHaley Primary Care Physician Encounter [facility] Date(s): 11/24/21 - 12/24/21 [facility] [place] [facility] [address] [place] [address]- Allergies, Adverse Reactions, Alerts No Known Allergies [...] mL,2 Refills, Maintenance, 12/22/21 14:32:00 EDT, Liquid, [facility] #[id number], Partial fill upon patient request if the [...] Refills, Soft Stop, 11/30/21 16:17:00 EDT, Cream, [facility] #[id number], Partial fill upon patient request if the prescription is for a schedule II opioid drug., 1 applica... Start Date: 11/30/21 Status: Ordered Miracle Mouthwash Miracle Mouthwash, See Instructions, # 580 mL, Refills 5, Tot. Refills 5, Maintenance, Benadryl betpfk1no+Nystatin susp(100,000 u/ml)4oz+Visc.Lido2%100ml+Mylanta 8oz. 5-10cc swish+spit/swallow Q2 hr [...] 1 Refills, Maintenance, 11/30/21 8:53:00 EDT, Tablet, [facility] #[id number], Partial fill upon patient request if the prescription is for a schedule II opi... Start Date: 11/30/21 Status: Ordered prochlorperazine 5 mg oral tablet 1 tablet = 5 mg, By Mouth, Every 6 hours, PRN Nausea & Vomiting, may cause drowsiness, # 30 tablet, 0 Refills, Maintenance, 11/30/21 8:53:00 EDT, [facility] #[id number], Partial fill upon patient request if the prescription is for a schedule II o... Start Date: 11/30/21 Status: Ordered traMADol 50 mg oral tablet 1 tablet = 50 mg, By Mouth, Every 12 hours, PRN as needed for pain, # 8 tablet, 0 Refills, Maintenance, 11/25/21 14:58:00 EDT, Tablet, [facility] #[id number], Partial fill upon patient request if the [...]
--- OUTSIDE RECORDS SUMMARY | 2024-04-14 23:42 | XMS_ITS | Continuity of Care Document ---
Author Organization [facility] Address [address] [place] [address]- Care Team Providers Care Tv Production Assistant Name Role Phone Aditya INSTRUCTOR MODELINGHaley Primary Care Physician Encounter 12/26/21 - 02/22/22 [facility] [address] [place] [address]- Discharge Disposition: GOALS MET Allergies, Adverse Reactions, Alerts No Known Allergies Immunizations Given and Recorded Vaccine Date Status Refusal Reason SARS-CoV-2 mRNA (qiqlnij-odql-ffqpn) vax 09/30/21 Recorded SARS-CoV-2 (COVID-19) mRNA BNT-162b2 [...] mL,2 Refills, Maintenance, 12/22/21 14:32:00 EDT, Liquid, [facility] #[id number], Partial fill upon patient request if the prescription is for a sche... Start Date: 12/22/21 Status: Ordered cetirizine 1 mg/mL oral syrup 10 mL = 10 mg, By Mouth, Daily, PRN Itch, replaces benadryl, # 120 mL, 0 Refills, Maintenance, 12/28/21 10:47:00 EDT, Syrup, [facility] #[id number], 154.94, cm, 12/28/21 10:31:00 EDT, Height, 97.6, kg, 12/23/21 12:27:00 EDT, Dry Weight Start Date: 12/28/21 Stop Date: 01/11/22 Status: Ordered lidocaine-prilocaine 2.5%-2.5% topical cream 1 application, Topically, Once, use 40 min before port access, # 30 Gm, 0 Refills, Soft Stop, 11/30/21 16:17:00 EDT, [facility] #[id number], Partial fill upon patient request if the [...] Refills 5, Tot. Refills 5, Maintenance, Benadryl [id number]+Nystatin susp(100,000 u/ml)4oz+Visc.Lido2%100ml+Mylanta 8oz. 5-10cc swish+spit/swallow Q2 hr PRN mouth-throat pain., 12/16/21 9:44:00 EDT, Compou... Start Date: 12/16/21 Status: Ordered MiraLax oral powder for reconstitution = 17 Gm, By Mouth, Daily, dissolve in water before taking, # 527 Gm, 1 Refills, Maintenance, 01/01/22 9:53:00 EDT, REC Powder, [facility] #[id number], Partial fill upon patient request if the prescription is for a schedule II opioid drug., 17 Gm... Start Date: 01/01/22 Status: [facility], Maintenance, [facility], 10/27/21 14:50:00 EDT, Supply Start Date: 10/27/21 Status: Ordered omeprazole 2 mg/mL oral suspension 10 mL = 20 mg, By Mouth, Daily, or give through G-tube, # 300 mL, 2 Refills, Maintenance, 01/08/22 13:02:00 EDT, Suspension, [facility] 3, Partial fill upon patient request if the prescription is for a schedule II opioid drug., 154.94, cm,... Start Date: 01/08/22 Status: Ordered ondansetron 4 mg oral tablet, disintegrating 1 tablet = 4 mg, By Mouth, Every 8 hours, PRN as needed for nausea/vomiting, # 30 tablet, 1 Refills, Maintenance, 02/09/22 14:30:00 EDT, DIS Tablet, [facility] #[id number], Patient not tolerating PO. Partial fill upon patient request if the presc... Start Date: 02/09/22 Status: Ordered oxyCODONE 5 mg/5 mL oral solution 5 - 7.5 mL, G Tube, Every 6 hours, PRN Pain , Severe, # 210 mL, 0 Refills, Maintenance, 02/16/22 17:18:00 EDT, Solution, [facility] #[id number], Partial fill upon patient request if the prescription is for a schedule II opioid drug., 156, cm, ... Start Date: 02/16/22 Stop Date: 02/23/22 Status: Ordered Silvadene 1% cream 1 application, Topically, 2 times a day, # 400 Gm, 1 Refills, Acute 04/18/22 13:59:00 EDT, 01/18/2213:59:00 EDT, Cream, [facility] #[id number], Partial fill upon patient request if the [...] Replace Required Details, Route to Pharmacy Electronically, [facility] S... Start Date: 02/02/22 Status: Ordered Problem List Condition Effective Dates Status Health Status Inform ant Allergic rhinitis(Confirmed) Active OAB (overactive bladder)(Confirmed) Active Chronic kidney disease (CKD) stage G3a/Ax(Confirmed) Active Bochdalek hernia(Confirmed) Active Degenerative lumbar disc(Confirmed) Active Gastrostomy tube dependent(Confirmed) Active Dyslipidemia(Confirmed) Active GERD (gastroesophageal reflu x disease)(Confirmed) Active History of breast cancer (ri t breast) 1996 S/P umpectomy and radiation(Confirmed) Active [...] at age: 23; entered on: 06/29/21 Sex Care Team Personnel Name: Haley Burgess NP Address: [address] [place] [address]
--- OUTSIDE RECORDS SUMMARY | 2024-04-14 23:42 | XMS_ITS | Continuity of Care Document ---
Author Organization [facility] Leonid Sergo lt Address [address] [place] [address]- Care Team Providers Care Resource Manager Name Role Phone Haley Burgess NP Primary Care Physician [phone] Encounter [facility] Date(s): 07/18/23 - 07/25/23 [facility] Adult [address] [place] [address]- Encounter Diagnosis Medicare annual wellness visit, subsequent(Discharge Diagnosis) - 07/16/23 Severe obesity (BMI 35.0-39.9) with comorbidity(Discharge Diagnosis) - 07/16/23 Chronic kidney disease (CKD) stage G3a/Ax(Discharge Diagnosis) - 07/16/23 Dyslipidemia(Discharge Diagnosis) - 07/16/23 GERD (gastroesophageal reflux disease)(Discharge Diagnosis) - 07/16/23 History of cancer tonsil(Discharge Diagnosis) - 07/16/23 History of breast cancer (right breast) 1997 S/P umpectomy and radiation (Discharge Diagnosis) - 07/16/23 Multiple pulmonary nodules(Discharge Diagnosis) - 07/16/23 Osteopenia of femoral neck(Discharge Diagnosis) - 07/16/23 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) - 07/16/23 Attending Physician: Haley Burgess NP Referring Physician: Marisa SEGURA, Cezar Murray Allergies, Adverse Reactions, Alerts No Known Allergies Immunizations Given and Recorded Vaccine Date Status Refusal Reason influenza virus vaccine, inactivated 04/09/23 Carrillo rded influenza virus vaccine, inactivated 04/09/22 Carrillo rded influenza virus vaccine, inactivated 02/17/21 Carrillo rded influenza virus vaccine, inactivated 03/23/18 Carrillo rded influenza virus vaccine, inactivated 04/01/17 Carrillo rded influenza virus vaccine, inactivated 03/18/16 Carrillo rded SARS-CoV-2(COVID-19)mRNA-LNP vac([id number]) 04/09/23 Recorded pneumococcal 20-valent conjugate vaccine 1 01/17/23 Given [id number] 12y+ bivalent booster vax 2 04/27/22 Given SARS-CoV-2 mRNA ([id number]) vax 09/30/21 Recorded SARS-CoV-2 (COVID-19) mRNA BNT-162b2 [...] pneumococcal 13-valent vaccine 06/20/15 Recorded 1Result Comment: [id number] 2Result Comment: [id number] Medications 1 breast prosthesis and three bras [...] this medication, # 90 capsule, 1 Refills, Hard Stop 08/13/23 12:25:00 EST, 06/14/23 12:25:00 EST, Capsule,[id number], Partial fill upon patient reque... Start Date: 06/14/23 Stop Date: 08/13/23 Status: [...] Maintenance, 04/05/23 10:51:00 EDT, [facility]), 153, cm, 01/17/23 9:12:00 EDT, [...] Effective Dates Health Status Clinical Service Informant Medicare annual wellness visit, subsequent Discharge Diagnosis 07/16/23 Severe obesity (BMI 35.0-39.9) with comorbidity Discharge Diagnosis 07/16/23 Chronic kidney disease (CKD) stage G3a/Ax Discharge Diagnosis 07/16/23 Dyslipidemia Discharge Diagnosis 07/16/23 GERD (gastroesophageal reflux disease) Discharge Diagnosis 07/16/23 History of cancer tonsil Discharge Diagnosis 07/16/23 History of breast cancer (right breast) 1996 S/P umpectomy and radiation Discharge Diagnosis 07/16/23 Multiple pulmonary nodules Discharge Diagnosis 07/16/23 Osteopenia of femoral neck Discharge Diagnosis 07/16/23 Xerostomia due to radiotherapy Discharge Diagnosis 07/16/23 Vital Signs Most recent to oldest [Reference Range]: 1 2 Height 153 cm (07/18/23 10:07 AM) 153 cm (07/18/23 9:31 AM) Weight 92.8 kg (07/18/23 9:31 AM) Oxygen Saturation [94-100 %] 96 % (07/18/23 9:31 AM) Pulse Rate [55-90 bpm] 90 bpm (07/18/23 10:07 AM) 94 bpm *H* (07/18/23 9:31 AM) Body Mass Index [18.5-24.99 kg/m2] 39.64 kg/m2 *>HHI* (07/18/23 9:31 AM) Blood Pressure [90-138/55-84 mm Hg] 116/ 68mm Hg (07/18/23 10:07 AM) 132/53mm Hg (07/18/23 9:31 AM) Temperature [96.8-100.4 DegF] 97.6 DegF (07/18/23 9:31 AM) Mode of Delivery (Oxygen) Room air (07/18/23 9:31 AM) Blood pressure sites Arm, left (07/18/23 10:07 AM) Arm, left (07/18/23 9:31 AM) Temperature Route Oral (07/18/23 9:31 AM) Weight Obtained Via Standing scale (07/18/23 9:31 AM) Social History Social History Type Response Smoking Status Former smoker, quit more than 30 days ago; Tobacco use times per day: social smoker; Started at age: 18; Stopped at age: 23; entered on: 06/29/21 Sex Note * John Aide: PERFORM, SIGN, VERIFY Event Display: Patient Education/Instruction Authored Date: [id number] [facility] *LIZZY Ludwig Clinical Summary Name OBINNA RIOS Age 78 Years 1945 PCP Haley Burgess NP PCP Visit Date 07/18/2023 09:28:00 Additional Instructions: Scheduled Appointments?? Future Appointments ?*[facility]??Gastro ?[address]??[place],??[place],??[address] ?Phone:??--?Fax:??-- ?Appt. Date:??08/17/2023?3:45 PM ?Scheduled Provider:??Presley Nassar MD Follow-Up Instructions ?? With: Address: When: Haley Burgess NP In 6 months Diagnosis Gastro-esophageal reflux disease without esophagitis; Encounter for general adult medical examination without abnormal findings; Morbid (severe) obesity due to excess calories; Chronic kidney disease, stage 3a; Personal history of malignant neoplasm of breast; Other specified disorders of bone density and structure, unspecified thigh; Hyperlipidemia, unspecified; Personal history of malignant neoplasm of other sites of lip, oral cavity, and pharynx; Disturbances of salivary secretion; Other nonspecific abnormal finding of lung field Medications: Please continue your medications until treatment is completed or stopped by your provider. Discuss any questions related to medications with your provider. Medications to Continue Taking That Have Changed [id number] [address], [place] [phone], [phone] - Cevimeline (cevimeline 30 mg oral capsule) 1 capsule Oral 3 times a day for 30 Days. Refills: 5. Next Dose: These medications were not printed or sent to your pharmacy - Cevimeline (cevimeline 30 mg oral capsule) 1 capsule Oral 3 times a day for 30 Days. Stop taking Pilocarpine when taking this medication. Refills: 1. Next Dose: Medications to Continue with No Changes These medications were not printed or sent to your pharmacy Durable Medical Equipment (1 breast prosthesis and three bras) DX: Breast cancer. Refills: 0. Next Dose: Fenofibrate (fenofibrate 160 mg oral tablet) 1 tab(s) Oral Daily. Refills: 1. Next Dose: fluoride-potassium nitrate topical (PreviDent 5000 Enamel Protect 1.1%-5% topical paste) 1 aminah Topically twice a day for 60 Days. rinse and spit; do not swallow. Refills: 6. Next Dose: Omeprazole (omeprazole 20 mg oral enteric coated capsule) 1 capsule Oral Daily as needed NEEDED FOR DYSPEPSIA. Refills: 1. Next Dose: Allergy Info:?? NKA Medications Given This Visit Future Orders ?MM Digital Mammo Screening? Order Date:07/18/23?- Complete on or after?07/18/23 Vital Signs Height 153 cm Weight 92.8 kg BMI 39.64 kg/m2 Blood Pressure 116 mm Hg/68 mm Hg Temperature 97.6 DegF Pulse Rate 90 bpm Respiratory Rate 02 Sat Mode of Delivery 96 %/Room air You can now view a summary of your hospital visit from the comfort of your home through a free online portal called [employer] is a website that allows you to securely view your medical information including discharge summary, medications and follow-up visits. ??You can alsosend a secure electronic message to your doctor???s office to request appointments, renew medications or just ask a question. You can enroll at [email or web address] or register during your next office [...] primary care provider, you may find a [facility] provider by calling [facility] [employer] at [phone]. [facility], in keeping with [facility] guidance, no longer requires face masks for staff, patientsor visitors in most situations. Similar to time spent indoors at other locations, there is the chance that you were exposed to respiratory viruses during your time with us (such as flu or COVID-19).? If you develop symptoms concerning for a viral respiratory infection, please seek testing (and treatment if indicated) from your medical provider or home test kit. For information about the plan of care [...] time for those born between 1945 and 1964 At routine exams High cholesterol or triglycerides [...] group Every exam 1American [employer] Society ?? 7317-4324 [employer]. [address] [place] [address]. All rights reserved. This information is not intended as a substitute for professional medical care. Always follow your healthcare professional's instructions. Patient Care team information Care Team Personnel Name: Camille Mathew RN Position: S RN Member Role: Primary Care Nurse Name: Haley Burgess NP Position: [facility] PCO Associate Professional Member Role: PCP Address: Address: [address] [place] [address]- Name: Poornima Martinez RN Position: S RN [...] Member Role: Primary Care Nurse Address: Address: [address] [place] [address] [place] [address]- Name: Minh Bryant RN Position: [facility] RN Member Role: Primary Care Nurse Care Team Related Persons Name: ZAINA ROBERSON Address: home [address] [place] [address]
--- OUTSIDE RECORDS SUMMARY | 2024-04-14 23:42 | XMS_ITS | Continuity of Care Document ---
Author Organization [facility] Elonid Sergo lt Address [address] [place] [address]- Care Team Providers Care Route Jumper Name Role Phone Aditya IMPRESSION PRINTERHaley Primary Care Physician Encounter [facility] Date(s): 09/21/23 - 09/28/23 [facility] Adult [address] [place] [address]- Encounter Diagnosis Left ankle sprain(Discharge Diagnosis) - 09/21/23 Attending Physician: Not on Staff, Attending MD [...] virus vaccine, inactivated 03/18/16 Carrillo rded SARS-CoV-2(COVID-19)mRNA-LNP vac([id number]) 04/09/23 Recorded pneumococcal 20-valent conjugate vaccine 1 01/17/23 Given [id number] 12y+ bivalent booster vax 2 04/27/22 Given SARS-CoV-2 mRNA (fbklrwg-lyyb-wqdgu) vax 09/30/21 Recorded SARS-CoV-2 (COVID-19) mRNA BNT-162b2 [...] pneumococcal 13-valent vaccine 06/20/15 Recorded 1Result Comment: [id number] 2Result Comment: [id number] Medications cevimeline 30 mg oral capsule 1 capsule = 30 mg, By Mouth, 3 times a day, # 90 capsule, 5 Refills, Maintenance, 08/13/23 12:25:00EST, Capsule, [id number], 153, cm, 07/18/23 10:07:00 EST, Height, [...] Maintenance, 04/05/23 10:51:00 EDT, [facility]), 153, cm, 01/17/23 9:12:00 EDT, Height, 93.3, kg, 09/29/22 15:49:00 EDT, Dry Weight Start Date: 04/05/23 Status: Ordered PreviDent 5000 Enamel Protect 1.1%-5% topical paste 1 application, Topically, 2 times a day, rinse and spit; do not swallow, # 100 mL, 6 Refills, Maintenance, 04/14/23 18:52:00 EDT, Paste, [facility] #[id number], Partial fill upon patient request if [...] Dates Health Status Cl inical Service Informant Left ankle sprain Discharge Diagnosis 09/21/23 Vital Signs Most recent to oldest [Reference Range]: 1 Height 154 cm (09/21/23 12:06 PM) Weight 95.9 kg (09/21/23 12:06 PM) Oxygen Saturation [94-100 %] 97 % (09/21/23 12:06 PM) Pulse Rate [55-90 bpm] 88 bpm (09/21/23 12:06 PM) Body Mass Index [18.5-24.99 kg/m2] 40.44 kg/m2 *>HHI* (09/21/23 12:06 PM) Blood Pressure [90-138/55-84 mm Hg] 133/ 77mm Hg (09/21/23 12:06 PM) Temperature [96.8-100.4 DegF] 97.8 DegF (09/21/23 12:06 PM) Mode of Delivery (Oxygen) Room air (09/21/23 12:06 PM) Blood pressure sites Arm, left (09/21/23 12:06 PM) Temperature Route Oral (09/21/23 12:06 PM) Weight Obtained Via Standing scale (09/21/23 12:06 PM) Social History Social History Type Response Smoking Status Former smoker, quit more than 30 days ago; Tobacco use times per day: social smoker; Started at age: 18; Stopped at age: 23; entered on: 06/29/21 Sex Patient Care team information Care Team Personnel Name: Camille Mathew RN Position: [facility] RN Member Role: Primary Care Nurse Name: Haley Burgess NP Position: [facility] PCO Associate Professional Member Role: PCP Address: Address: [address] [facility] [place] [address]- [place] Name: Poornima Martinez RN Position: S RN Member Role: Primary Care Nurse Name: Suhail Duckworth RN Position: [facility] RN Supv Member Role: Primary Care Nurse Name: Holli Ramos RN Position: S RN Member Role: Primary Care Nurse Name: Katina Samaniego Position: S RN Member Role: Primary Care Nurse Name: Felecia Hernandez RN Position: [facility] Onco RN Member Role: Primary Care Nurse Name: Verito Alonzo NP Position: [facility] PCO Associate Professional Member Role: Primary Care Nurse Address: Address: [address] [facility] [place] [address]- [place] Name: Minh Bryant RN Position: S RN Member Role: Primary Care Nurse Care Team Related Persons Name: ZAINA ROBERSON Address: home [address] [place] [address]
--- OUTSIDE RECORDS SUMMARY | 2024-04-14 23:42 | XMS_ITS | Continuity of Care Document ---
Author Organization [facility] ter Address [address] [place] [address]- Care Team Providers Care Instrument Technician Name Role Phone Aditya Haley HU Primary Care Physician [place] [facility] [place] 03/19/22 - 07/09/[address] [address] Attending Physician: Cory Campbell MD Admitting Physician: Cory Campbell MD Referring Physician: Cory Campbell MD Allergies, Adverse Reactions, Alerts No Known Allergies Immunizations Given and Recorded Vaccine Date Status Refusal Reason [id number] 12y+ bivalent booster vax 1 04/27/22 Given influenza virus vaccine, inactivated 04/09/22 Carrillo rded influenza virus vaccine, inactivated 02/17/21 Carrillo rded influenza virus vaccine, inactivated 03/23/18 Carrillo rded influenza virus vaccine, inactivated 04/01/17 Carrillo rded influenza virus vaccine, inactivated 03/18/16 Carrillo rded SARS-CoV-2 mRNA (jzeqdlr-vrja-luixc) vax 09/30/21 Recorded SARS-CoV-2 (COVID-19) mRNA BNT-162b2 vac 03/26/21 Recorded SARS-CoV-2 (COVID-19) mRNA BNT-162b2 vac 08/25/20 Given SARS-CoV-2 (COVID-19) mRNA BNT-162b2 vac 08/04/20 Given Influenza Virus Vaccine (oldterm) 03/19/20 Recorde d Influenza Virus Vaccine (oldterm) 03/17/19 Recorde d zoster vaccine, inactivated 08/05/18 Recorded zoster vaccine, inactivated 03/23/18 Recorded pneumococcal 23-valent vaccine 04/01/17 Recorded pneumococcal 23-valent vaccine 1/1/10 Recorded pneumococcal 13-valent vaccine 10/28/15 Recorded pneumococcal 13-valent vaccine 06/20/15 Recorded Not Given Vaccine Date Status Refusal Reason tetanus-diphtheria toxoids (Td) 06/27/19 Not Given Parent Or Guardian Refuses tetanus-diphtheria toxoids (Td) 01/16/19 Not Given Parent Or Guardian Refuses 1Result Comment: [id number] Medications acetaminophen 160 mg/5 mL oral liquid 20 mL = 640 mg, By Mouth, 3 times a day, PRN Pain , Mild, Check temperature before using, # 480 mL,2 Refills, Maintenance, 12/22/21 14:32:00 EDT, Liquid, [id number], Partial fill upon patient request if the prescription is for a sche... Start Date: 12/22/21 Status: Ordered cevimeline 30 mg oral capsule 1 capsule = 30 mg, By Mouth, 3 times a day, Stop taking Pilocarpine when taking this medication, # 90 capsule, 5 Refills, Maintenance, 06/14/22 11:18:00 EST, Capsule, [id number], Partial fill upon patient request if the prescription i... Start Date: 06/14/22 Stop Date: 12/11/22 Status: Ordered lidocaine-prilocaine 2.5%-2.5% topical cream 1 application, Topically, Once, use 40 min before port access, # 30 Gm, 0 Refills, Soft Stop, 11/30/21 16:17:00 EDT, [id number], Partial fill upon patient request if the [...] Care Nurse Name: Haley Burgess NP Position: [facility] PCO Associate Professional Member Role: PCP Address: Address: [address] [place] [address] Name: Suhail Duckworth RN Position: [facility] RN Supv Member Role: Primary Care Nurse Name: Holli Ramos RN Position: S RN Member Role: Primary Care Nurse Name: Felecia Hernandez RN Position: [facility] Onco RN Member Role: Primary Care Nurse Name: Verito Alonzo RN Position: S RN Member Role: Primary Care Nurse Name: Minh Bryant RN Position: S RN Member Role: Primary Care Nurse Care Team Related Persons Name: ZAINA ROBERSON Address: home [address] [place] [address]
--- OUTSIDE RECORDS SUMMARY | 2024-04-14 23:42 | XMS_ITS | Continuity of Care Document ---
Author Organization [facility] Theodore Sergo lt Address [address] [place] [address]- Care Team Providers Care Specialty Finishing Utility Person Name Role Phone Aditya MAYTE, Haley Brownlee Primary Care Physician [place] [facility] [place]17[place] 09/16/21 [facility] Adult [address] [place] [address]- Allergies, Adverse Reactions, Alerts No Known Allergies [...] x disease)(Confirmed) Active History of breast cancer ([facility] breast) 1996 S/P umpectomy and radiation(Confirmed) [...]
--- OUTSIDE RECORDS SUMMARY | 2024-04-14 23:42 | XMS_ITS | Continuity of Care Document ---
Author Organization [facility] Address [address] [place] [address]- Care Team Providers Care Pharmacist In Charge Name Role Phone Aditya Haley HU Primary Care Physician Encounter [facility] Date(s): 10/16/21 - 11/15/21 [facility] [address] [place] [address]- Attending Physician: Dena Burroughs Admitting Physician: AdmDena whitfield Referring Physician: Admtr, ArWeston Allergies, Adverse Reactions, Alerts No Known Allergies [...] x disease)(Confirmed) Active History of breast cancer ([facility] breast) 1996 S/P umpectomy and radiation(Confirmed) [...]
--- OUTSIDE RECORDS SUMMARY | 2024-04-14 23:42 | XMS_ITS | Continuity of Care Document ---
Author Organization [facility] Address Unknown Care Team Providers Care Warm In Worker Name Role Phone Aditya Haley HU Primary Care Physician Encounter [facility] Date(s): 10/29/21 - 11/28/21 [facility] Attending Physician: AdmDena whitfield Admitting Physician: AdmtrDena Referring Physician: Admtr, Ar8 Allergies, Adverse Reactions, [...] 0 Refills, Maintenance, 11/25/21 14:58:00 EDT, Tablet, [id number], Partial fill upon patient request if the [...]
--- OUTSIDE RECORDS SUMMARY | 2024-04-14 23:42 | XMS_ITS | Continuity of Care Document ---
Author Organization [facility] Leonid Sergo lt Address [address] [place] [address]- Care Team Providers Care Director Check Name Role Phone Ricardo Marie MD Primary Care Physician [phone] Encounter [facility] Date(s): 06/21/19 - 07/27/19 [facility] Adult [address] [place] [address]- [facility] Attending Physician: Ricardo Marie MD Allergies, Adverse [...]
--- OUTSIDE RECORDS SUMMARY | 2024-04-14 23:43 | XMS_ITS | Continuity of Care Document ---
Author Organization [facility] Leonid Sergo lt Address [address] [place] [address]- Care Team Providers Care Outside Sales Engineer Name Role Phone Cynthia SEGURA, Ricardo Nicole Primary Care Physician [phone] Encounter [facility] Date(s): 12/27/19 - 01/26/20 [facility] Adult [address] [place] [address]- [facility] Allergies, Adverse Reactions, Alerts Substance Reaction Severity [...]
--- OUTSIDE RECORDS SUMMARY | 2024-04-14 23:43 | XMS_ITS | Continuity of Care Document ---
Author Organization [facility] Sergo lt Address [address] [place] [address]- Care Team Providers Care Patient Accounting Representative Name Role Phone Haley Burgess NP Primary Care Physician [phone] Encounter [facility] Date(s): 01/17/23 - 01/24/23 [facility] Adult [address] [place] [address]- Encounter Diagnosis Chronic kidney disease (CKD) stage G3a/Ax(Discharge Diagnosis) - 01/17/23 Dyslipidemia(Discharge Diagnosis) - 01/17/23 GERD (gastroesophageal reflux disease)(Discharge Diagnosis) - 01/17/23 Multiple pulmonary nodules(Discharge Diagnosis) - 01/17/23 Osteopenia of femoral neck(Discharge Diagnosis) - 01/17/23 Severe obesity (BMI 35.0-39.9) with comorbidity(Discharge Diagnosis) - 01/17/23 Dysphagia(Discharge Diagnosis) - 01/17/23 History of cancer tonsil(Discharge Diagnosis) - 01/17/23 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) - 01/17/23 Attending Physician: Haley Burgess NP Referring Physician: Cezar Cunningham MD Allergies, Adverse Reactions, Alerts No Known Allergies Immunizations Given and Recorded Vaccine Date Status Refusal Reason pneumococcal 20-valent conjugate vaccine 1 01/17/23 Given [id number] 12y+ bivalent booster vax 2 04/27/22 Given influenza virus vaccine, inactivated 04/09/22 Carrillo rded influenza virus vaccine, inactivated 02/17/21 Carrillo rded influenza virus vaccine, inactivated 03/23/18 Carrillo rded influenza virus vaccine, inactivated 04/01/17 Carrillo rded influenza virus vaccine, inactivated 03/18/16 Carrillo rded SARS-CoV-2 mRNA ([id number]-lscv-xyaow) vax 09/30/21 Recorded SARS-CoV-2 (COVID-19) mRNA BNT-162b2 [...] Given Parent Or Guardian Refuses 1Result Comment: [id number] 2Result Comment: [id number] Medications 1 breast prosthesis and three bras [...] Daily, # 90 tablet, 1 Refills, Maintenance, 01/17/23 9:44:00 EDT, Tablet, [id number], 153, cm, 01/17/23 9:12:00 EDT, Height, 93.3, kg, 09/29/22 15:49:00 EDT, Dry Weight Start Date: 01/17/23 Stop Date: 07/16/23 Status: Ordered omeprazole 20 mg oral enteric [...] Effective Dates Health Status Clinical Service Informant Chronic kidney disease (CKD) stage G3a/Ax Discharge Diagnosis 01/17/23 Dyslipidemia Discharge Diagnosis 01/17/23 GERD (gastroesophageal reflux disease) Discharge Diagnosis 01/17/23 Multiple pulmonary nodules Discharge Diagnosis 01/17/23 Osteopenia of femoral neck Discharge Diagnosis 01/17/23 Severe obesity (BMI 35.0-39.9) with comorbidity Discharge Diagnosis 01/17/23 Dysphagia Discharge Diagnosis 01/17/23 History of cancer tonsil Discharge Diagnosis 01/17/23 Xerostomia due to radiotherapy Discharge Diagnosis 01/17/23 Vital Signs Most recent to oldest [Reference Range]: 1 Height 153 cm (01/17/23 9:12 AM) Weight 89.0 kg (01/17/23 9:12 AM) Oxygen Saturation [94-100 %] 97 % (01/17/23 9:12 AM) Pulse Rate [55-90 bpm] 88 bpm (01/17/23 9:12 AM) Body Mass Index [18.5-24.99 kg/m2] 38.02 kg/m2 *>HHI* (01/17/23 9:12 AM) Blood Pressure [90-138/55-84 mm Hg] 117/ 71mm Hg (01/17/23 9:12 AM) Temperature [96.8-100.4 DegF] 97.9 DegF (01/17/23 9:12 AM) Mode of Delivery (Oxygen) Room air (01/17/23 9:12 AM) Blood pressure sites Arm, left (01/17/23 9:12 AM) Temperature Route Oral (01/17/23 9:12 AM) Weight Obtained Via Standing scale (01/17/23 9:12 AM) Social History Social History Type Response Smoking Status Former smoker, quit more than 30 days ago; Tobacco use times per day: social smoker; Started at age: 18; Stopped at age: 23; entered on: 06/29/21 Sex Note * Nita Mar: PERFORM, SIGN, VERIFY Event Display: Patient Education/Instruction Authored Date: [id number] [facility] *[facility] Candice Ludwig Clinical Summary Name OBINNA RIOS Age 78 Years 1945 PCP Haley Burgess NP PCP Visit Date 01/17/2023 09:07:00 Additional Instructions: Scheduled Appointments?? Future Appointments ?No Future Appointments Scheduled Follow-Up Instructions ?? With: Address: When: Haley Burgess NP Comments: for annual exam With: Address: When: Haley Burgess NP In 6 months Diagnosis Chronic kidney disease, stage 3a; Hyperlipidemia, unspecified; Other specified disorders of bone density and structure, unspecified thigh; Morbid (severe) obesity due to excess calories; Other nonspecific abnormal finding of lung field; Gastro-esophageal reflux disease without esophagitis Medications: Please continue your medications until treatment is completed or stopped by your provider. Discuss any questions related to medications with your provider. New Medications [id number], [address], [place] [id number], [phone] Fenofibrate (fenofibrate 160 mg oral tablet) 1 tab(s) Oral Daily for 90 Days. Refills: 1. Next Dose: Medications to Continue Taking That Have Changed These medications were not printed or sent to your pharmacy - Cevimeline (cevimeline 30 mg oral capsule) 1 capsule Oral 3 times a day for 30 Days. Stop taking Pilocarpine when taking this medication. Refills: 5. Next Dose: Medications to Continue with No Changes These medications were not printed or sent to your pharmacy Durable Medical Equipment (1 breast prosthesis and three bras) DX: Breast cancer. Refills: 0. Next Dose: Omeprazole (omeprazole 20 mg oral enteric coated capsule) 1 capsule Oral Daily as needed Dyspepsia. Next Dose: Allergy Info:?? NKA Medications Given This Visit Medication Dose Route pneumococcal 20-valent conjugate vaccine (pneumococcal 20-valent vacc) 0.5 mL Intramuscular Future Orders ?No future orders Vital Signs Height 153 cm Weight 89.0 kg BMI 38.02 kg/m2 Blood Pressure 117 mm Hg/71 mm Hg Temperature 97.9 DegF Pulse Rate 88 bpm Respiratory Rate 02 Sat Mode of Delivery 97 %/Room air You can now view a summary of your hospital visit from the comfort of your home through a free online portal called [employer]. [employer] is a website that allows you to securely view your medical information including discharge summary, medications and follow-up visits. ??You can alsosend a secure electronic message to your doctor???s office to request appointments, renew medications or just ask a question. You can enroll at [email or web address] or register during your next office visit. [...] care provider, you may find a [facility] provider by calling [facility] Link at [phone]. For information about the plan of care [...] Care Nurse Name: Haley Burgess NP Position: [facility] Associate Professional Member Role: PCP Address: Address: [address] [place] [address]- Name: Poornima Martinez RN Position: S RN [...] Related Persons Name: ZAINA ROBERSON Address: home [address] [place] [id number]
--- OUTSIDE RECORDS SUMMARY | 2024-04-14 23:43 | XMS_ITS ---
Author Organization [facility] Address [address] [place] [address] Care Team Providers Care Cost Accounting Analyst Name Role Phone Haley Flores Primary Care Provider Unavail able John, Juany Unavailable [phone] REASON FOR VISIT Seen Sooner Encounters Encounter Location Date Provider Diagnosis [address] [address] 01/02/2024 Juany Lopez PLAN OF TREATMENT Next Appt Details Provider Name:Juany Lopez , 06/25/2024 02:45:00 PM, [address] [place] [address], [phone],
--- OUTSIDE RECORDS SUMMARY | 2024-04-14 23:43 | XMS_ITS | Continuity of Care Document ---
Author Organization [facility] Address [address] [place] [address]- Care Team Providers Care Fitness Manager Name Role Phone Aditya Haley HU Primary Care Physician Encounter [facility] Date(s): 08/17/23 - 09/16/23 [facility] [address] [place] [address]- Attending Physician: Dena Burroughs Admitting Physician: Dena Burroughs Referring Physician: AdmtrDena Allergies, Adverse Reactions, Alerts No Known Allergies Immunizations Given and Recorded Vaccine Date Status Refusal Reason influenza virus vaccine, inactivated 04/09/23 Carrillo rded influenza virus vaccine, inactivated 04/09/22 Carrillo rded influenza virus vaccine, inactivated 02/17/21 Carrillo rded influenza virus vaccine, inactivated 03/23/18 Carrillo rded influenza virus vaccine, inactivated 04/01/17 Carrillo rded influenza virus vaccine, inactivated 03/18/16 Carrillo rded SARS-CoV-2(COVID-19)mRNA-LNP vac([id number]) 04/09/23 Recorded pneumococcal 20-valent conjugate vaccine 1 01/17/23 Given [id number] 12y+ bivalent booster vax 2 04/27/22 Given SARS-CoV-2 mRNA (wtxlcdp-cygj-dmbwd) vax 09/30/21 Recorded SARS-CoV-2 (COVID-19) mRNA BNT-162b2 [...] pneumococcal 13-valent vaccine 06/20/15 Recorded 1Result Comment: [id number] 2Result Comment: [id number] Medications 1 breast prosthesis and three bras [...] Maintenance, 04/05/23 10:51:00 EDT, [facility]), 153, cm, 01/17/23 9:12:00 EDT, Height, 93.3, kg, 09/29/22 15:49:00 EDT, Dry Weight Start Date: 04/05/23 Status: Ordered PreviDent 5000 Enamel Protect 1.1%-5% topical paste 1 application, Topically, 2 times a day, rinse and spit; do not swallow, # 100 mL, 6 Refills, Maintenance, 04/14/23 18:52:00 EDT, Paste, [id number], Partial fill upon patient request if the [...] Associate Professional Member Role: PCP Address: Address: [address] [place] [address]- Name: Poornima Martinez RN Position: S RN Member Role: Primary Care Nurse Name: Suhail Duckworth RN Position: S RN Supjuice Member Role: Primary Care Nurse Name: Holli Ramos RN Position: S RN Member Role: Primary Care Nurse Name: Katina Samaniego Position: S RN Member Role: Primary Care Nurse Name: Felecia Hernandez RN Position: S Onco RN Member Role: Primary Care Nurse Name: Verito Alonzo NP Position: [facility] Associate Professional Member Role: Primary Care Nurse Address: Address: [address] [place] [address]- [place] Name: Minh Bryant RN Position: [facility] RN Member Role: Primary Care Nurse Care Team Related Persons Name: ZAINA ROBERSON Address: home [address] [place] [address]
--- OUTSIDE RECORDS SUMMARY | 2024-04-14 23:43 | XMS_ITS | Continuity of Care Document ---
Author Organization [facility] Leonid Sergo lt Address [address] [place] [address]- Care Team Providers Care Supervisor Research Shop Name Role Phone Cynthia SEGURA, Ricardo Nicole Primary Care Physician [facility]counter [facility] Date(s): 06/23/20 - 07/23/20 [facility] Adult [address] [place] [address]- Allergies, Adverse Reactions, Alerts Substance Reaction Severity [...]
--- OUTSIDE RECORDS SUMMARY | 2024-04-14 23:43 | XMS_ITS ---
Author Organization [facility] Address [address] [place] [address] Care Team Providers Care Railroad Car Repairman Name Role Phone Haley Flores Primary Care Provider Unavail able Black, Juany Unavailable [phone] ALLERGIES Allergen (clinical drug ingredient) Drug/Non Drug Allergy documented on EMR Reaction Allergy Type Onset Date Status codeine Codeine rash Drug Allergy Active adhesive tape rash Drug Allergy Act marbella REASON FOR VISIT Pcp- 09/21/23, Ankle pain, Foot pain MEDICATIONS Medication SIG (Take, Route, Frequency, Duration) Notes Start Date End Date Status CeleBREX 200mg as directed Orally Not-Taking Keflex 500 MG 1 capsule Orally kris ry 12 hrs for 10 day(s) 05/20/2016 Not-Taking Keflex 500 MG 1 capsule Orally Twi ce a day for 10 day(s) 09/06/2016 Not-Taking Benazepril HCl 20-25mg as directed Orally Not-Taking Glucosamine 500 MG 1 capsule with a robert l Orally Once a day for 30 day(s) Not-Taking Multivitamin Active Physical Therapy . . . 2-3x/week for 3- 4 weeks 10/03/2023 Active Fenofibrate 160 MG 1 tablet Orally Once a day for 30 day(s) Active Omeprazole 20 MG 1 tablet Orally Once a day for 14 day(s) Active Cevimeline HCl 30 MG 1 capsule Orally Th ree times a day for 30 day(s) Active SOCIAL HISTORY Sex Assigned At : Social History Observation Description Sex Assigned At Unknown Alcohol Screen Question Answer Notes Did you have a drink containing alcohol in the p ast year? No Points 0 Interpretation Negative Tobacco use other than smoking: Question Answer Notes Are you an other tobacco user? 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) Active confirmed 716616136 VITAL SIGNS Height 5 ft 1 in in 12/01/2023 Weight 206 lbs 12/01/2023 BMI 38.92 kg/m2 12/01/2023 Blood pressure systolic 132 mm Hg 12/01/19 24 Blood pressure diastolic 78 mm Hg 024 PROCEDURES Procedure Date Ordered Date Performed Result Body Sit e 42534,[id number]-FUI TENDON SHEATH/LIGAMENT 12/01/2023 N/A Encounters Encounter Location Date Provider Diagnosis [facility] [place] [address] [place] [address] 12/01/2023 Juany Black Pain in left foot M79.672 ; Hallux varus, left M20.32 ; Peroneal tendinitis, left M76.72 ; Tendonitis M77.9 ; Pain in joint, ankle and foot, left M25.572 ; Pain in left ankle and joints of left foot M25.572 ; Bursitis of left foot M77.52 ; Hallux valgus (acquired), left foot M20.12 ; Sprain of anterior talofibular ligament of left ankle, subsequent encounter S93.492D and Sprain of left foot, subsequent encounter S93.602D ASSESSMENTS Encounter Date Diagnosis Assessment Notes Treatment Notes Treatment Clinical Notes 12/01/2023 Pain in left foot (ICD-10 - M79.672) 12/01/2023 Hallux varus, left (ICD-10 - M20.32) 12/01/2023 Peroneal tendinitis, left (ICD-10 - M76.72) 12/01/2023 Tendonitis (ICD-10 - M77.9) Patient Educated with: INJECTIONTHERAPY. pdf (INJECTIONTHERAPY .pdf) 12/01/2023 Pain in joint, ankle and foot, left (ICD-10 - M25.572) 12/01/2023 Pain in left ankle and joints of left foot (ICD-10 - M25.572) 12/01/2023 Bursitis of left foot (ICD-10 - M77.52) 12/01/2023 Hallux valgus (acquired), left foot (ICD-10 - M20.12) 12/01/2023 Sprain of anterior talofibular ligament of left ankle, subsequent encounter (ICD-10 - S93.492D) 12/01/2023 Sprain of left foot, subsequent encounter (ICD-10 - S93.602D) PLAN OF TREATMENT Treatment Notes Assessment Notes Tendonitis Patient Educated wit h: INJECTIONTHERAPY.pdf (INJECTIONTHERAPY.pdf) Pending Test Test Name Order Date ,[id number] TENDON SHEATH/LIGAMENT 0 12/01/2023 Next Appt Details Follow Up: 6 Weeks, Reason: Provider Name:Juany A John , 06/25/2024 02:45:00 PM, [address] [place] [address], [phone], Procedure Notes * Category Sub-Category Detail Notes Injection Tendon Sheath or Fascia , J 07 Injection Tendon Sheath w/ Celestone Soluspan 3mg + 1cc 1% Xylocaine Pl. anes. utilizing aseptic technique. The patient tolerated the procedure well. A dry sterile dressing was applied. Post injection instructions were dispensed, verbally discussed, and confirmed understood by the patient. I explained that a steroid and local anesthetic injections are administered to relieve pain and inflammation and thereby meant to improve function. I explained the possible complications including but not limited to signs/symptoms of steroid flare, infection, bruising, atrophy, discoloration of skin, change/deviation in toe position, and that additional injections may be necessary, Patient relates post-procedural pain assessment improved at ( 0-1) out of 10 , LEFT foot Progress Notes * Examination Category Sub-Category Detail Notes Neurological TINEL'S COMPRESSION: Negative ta rsal tunnel, carlos pedis, and medial calcaneal nerves , Negative, Saphenous nerve distribution Orthopedic GAIT ABNORMALITY: antalgic FOOT MORPHOLOGY: Pes Planus structure , Decreased Ankle joint dorsiflexion ROM, knee extended BUNION: Hallux in varus posi tion , LEFT , Medially prominent 1st MPJ, (+) Pain on palpation, inflammation present medially, Lateral tracking 1st MPJ incompletely reducible, LEFT ANKLE PAIN LOCATED: LEFT , Lateral ankle , (+) swelling , pain with ankle joint ROM , limited ankle joint range of motion , Pain on palpation to , ATFL , Peroneal tendons EDB TENDON LEFT at 20 percent less DIGITAL DEFORMITIES: Digital contracture , PIPJ, 2-5 B/L, incompl-reducible with WB, or to push-up test, no over, nor underlapping MUSCLE STRENGTH: 5/5 all groups in a symmetrical fashion, B/L General Examination GENERAL APPEARANCE: Reveals a pleasant, alert, well nourished, well-developed, well hydrated individual, who demonstrates proper attention to hygiene/body habitus, and is in no acute distress, Pt serves as own historian for office visit today ORIENTED: person, place, and t lyndon Heel Pain INSPECTION: History and Physical Notes * HPI (History of Present Illness) Category Sub-Category Detail Notes Ankle Pain Duration: a month Nature: sharp , aching Treatments: rest/alter normal da horacio activity,compression , Physical therapy Course: , improved 20 percen t Location: Outside aspect of th e Left ankle Onset/Cause: sudden-twisted foot/ ankle Aggravated by: standing , walking Foot Pain Location: Inside, Great to e joint, LEFT Duration: several months Course: worse Aggravated: any pressure Treatments: rest/alter normal da horacio activity
--- OUTSIDE RECORDS SUMMARY | 2024-04-14 23:43 | XMS_ITS | Continuity of Care Document ---
Author Organization [facility] al Address [address] [place] [address]- Care Team Providers Care Otr Driver Name Role Phone Aditya Haley HU Primary Care Physician Encounter [facility] Date(s): 09/28/22 - 09/29/[address] [address]- Discharge Disposition: Transferred to short-term general hospit Attending Physician: Hardeep Farrell MD Admitting Physician: Hardeep Farrell MD Referring Physician: Not on Staff, Referring MD Allergies, Adverse Reactions, Alerts No Known Allergies Immunizations Given and Recorded Vaccine Date Status Refusal Reason [id number] 12y+ bivalent booster vax 1 04/27/22 Given influenza virus vaccine, inactivated 04/09/22 Carrillo rded influenza virus vaccine, inactivated 02/17/21 Carrillo rded influenza virus vaccine, inactivated 03/23/18 Carrillo rded influenza virus vaccine, inactivated 04/01/17 Carrillo rded influenza virus vaccine, inactivated 03/18/16 Carrillo rded SARS-CoV-2 mRNA ([id number]-[id number]-kcirg) vax 09/30/21 Recorded SARS-CoV-2 (COVID-19) mRNA BNT-162b2 [...] Given Parent Or Guardian Refuses 1Result Comment: [id number] Medications acetaminophen 160 mg/5 mL oral liquid 20 mL = 640 mg, By Mouth, 3 times a day, PRN Pain , Mild, Check temperature before using, # 480 mL,2 Refills, Maintenance, 12/22/21 14:32:00 EDT, Liquid, [id number], Partial fill upon patient request if the prescription is for a sche... Start Date: 12/22/21 Status: Ordered cevimeline 30 mg oral capsule 1 capsule = 30 mg, By Mouth, 3 times a day, Stop taking Pilocarpine when taking this medication, # 90 capsule, 5 Refills, Maintenance, 06/14/22 11:18:00 EST, Capsule, [facility] #[id number], Partial fill upon patient request if the [...] 1 Refills, Maintenance, 07/16/22 11:49:00 EST, Tablet, [facility] #[id number], 156, cm, 07/14/22 10:10:00 EST, Height, 91.5, [...] Exam Date Time Procedure Performing Provider Status 09/28/22 9:[address] Abd/Pelvis W/ IV Contrast Only Megan Hardwick; Hardik (Verified) Notes: (CT Abd/Pelvis W/ IV Contrast Only) Reason For Exam: Pain RESULT: CT Abd/Pelvis W/ IV Contrast Only CT Abd/Pelvis W/ IV Contrast Only Hx of Present Illness: Pt comes in from home. Began vomiting on tuesday. Now presents with lumnp on her abd. Sent here by PCP for possible incarcerated hernia; Reason: Pain; Clinical Question(s): Obstruction; Order Comment: TECHNIQUE: Spiral CT through the abdomen and pelvis with IV contrast formatted in 3 planes. 100 cc of Omnipaque 300 was administered intravenously. This study was performed without oral contrast. Weight-based protocol using automatic tube modulation was used to optimize exposure parameters. CTDIvol Body: 21.32 mGy, DLP Body: 1045 mGy*cm. COMPARISON: 08/21/2018 CT of the chest, abdomen and pelvis. FINDINGS: Medical Billing And Coding Instructor View Findings, Lines and Tubes: None. Visualized Chest: 0.5 cm solid nodule in the right lower lobe (image 8 series 2) unchanged from 2020. Mild left basilar atelectasis secondary to compression from Bochdalek hernia. Diaphragm: Small to moderate fat-containing left Bochdalek hernia. Liver: Normal. Gallbladder: No CT evidence of gallbladder pathology. Bile ducts: No biliary ductal dilation. Spleen: Normal. Pancreas: Normal. Adrenal glands: Normal. Kidneys and ureters: No hydronephrosis, stones, or suspicious masses. Small hypodensities that are too small to characterize are noted, requiring no dedicated follow up. Multiple benign peripelvic cysts bilaterally, also not requiring follow-up. Cortical scarring in the upper pole of the right kidney. Questionable 1.0 cm hypoenhancing area at the upper pole of the left kidney could represent a prominent calyx secondary to scarring, however an underlying lesion is difficult to exclude. Bladder: Underdistended. Mild adjacent inflammatory changes could be secondary to the hernia. Reproductive organs: Prior hysterectomy. No adnexal masses. Stomach, small bowel, and large bowel: Moderate sized gastric diverticulum arising from the fundus.The stomach otherwise appears normal. Diffuse dilation of multiple small bowel loops, which measureup to 3.6 cm in caliber. The transition point corresponds to a moderate-sized right femoral hernia containing an obstructed loop of ileum. Mild inflammatory changes and trace fluid are seen within the hernia sac. Hernia neck measures 2.1 cm. The bowel loop in the hernia sac is mildly thickened, butwithout pneumatosis or definite imaging findings of ischemia. The remainder of the small bowel is decompressed leading up to the ileocecal valve. The rectum is normal. There is colonic diverticulosis predominantly affecting the descending and sigmoid colon without findings of acute diverticulitis. Appendix: Not seen, but no evidence of appendicitis. Peritoneum and retroperitoneum: Trace pelvic free fluid. No omental or mesenteric lesions. Lymph nodes: No enlarged lymph nodes. Blood vessels: Mild vascular calcifications but no aneurysm. No evidence of venous thrombosis. Abdominal and pelvic wall: Moderate sized right femoral hernia containing an obstructed loop of ileum. The neck of the hernia measures 2.1 cm. Bones: Degenerative changes in the spine. No acute osseous abnormality. IMPRESSION: 1. Small bowel obstruction secondary to a right femoral hernia containing a nonobstructed loop of ileum. There are mild inflammatory changes within the hernia sac and the loop of ileum in the hernia sac is mildly thickened which may indicate incarceration/strangulation. No pneumatosis or evidence of perforation. 2. Questionable 1.0 cm hypoenhancing area in the upper pole of the left kidney could be a prominentcalyx related to cortical scarring, however consider renal mass protocol MRI to exclude an underlying lesion. Preliminary findings were reported by virtual radiology. No significant discrepancy. WSN: [id number] Ordering Physician: Hardeep Farrell Dictated By: Geovanny Cardona MD Dictated Date/Time: 09/29/22 10:06 a Reviewed By: Geovanny Cardona MD Signed By: Geovanny Cardona MD Signed Date/Time: 09/29/22 10:06 am Transcribed By: ALVIN Transcribed Date/Time: 09/29/22 9:52 am Vital Signs Most recent to oldest [Reference Range]: 1 2 3 Height 155 cm (09/29/22 1:12 AM) 155 cm (09/28/22 11:09 PM) 155 cm (09/28/22 1:58 PM) Weight 88.5 kg (09/29/22 1:12 AM) 88.5 kg (09/28/22 11:09 PM) 88.5 kg (09/28/22 1:58 PM) Oxygen Saturation [94-100 %] 96 % (09/29/22 2:00 AM) 93 % *L* (09/29/22 1:12 AM) 97 % (09/28/22 11:09 PM) Pulse Rate [55-90 bpm] 88 bpm (09/29/22 2:00 AM) 89 bpm (09/29/22 1:12 AM) 93 bpm *H* (09/28/22 11:09 PM) Body Mass Index [18.5-24.99 kg/m2] 36.84 kg/m2 *>HHI* (09/29/22 1:12 AM) 36.84 kg/m2 *>HHI* (09/28/22 11:09 PM) Blood Pressure [90-138/55-84 mm Hg] 143/82mm Hg *H* (09/29/22 2:00 AM) 134/72mm Hg (09/29/22 1:12 AM) 142/72mm Hg *H* (09/28/22 11:09 PM) Respiratory Rate [16-30 br/min] 18 br/min (09/29/22 2:00 AM) 16 br/min (09/29/22 1:12 AM) 16 br/min (09/28/22 11:09 PM) Temperature [96.8-100.4 DegF] 97.6 DegF (09/29/22 2:00 AM) 97.4 DegF (09/29/22 1:12 AM) 97.5 DegF (09/28/22 11:09 PM) Mode of Delivery (Oxygen) Room air (09/29/22 2:00 AM) Room air (09/29/22 1:12 AM) Room air (09/28/22 11:09 PM) Blood pressure sites Arm, left (09/29/22 2:00 AM) Arm, left (09/29/22 1:12 AM) Arm, left (09/28/22 11:09 PM) Temperature Route Temporal (09/29/22 2:00 AM) Temporal (09/29/22 1:12 AM) Temporal (09/28/22 11:09 PM) Dry Weight 88.5 kg (09/29/22 1:12 AM) 88.5 kg (09/28/22 11:09 PM) 88.5 kg (09/28/22 1:58 PM) Social History Social History Type Response Smoking Status Former smoker, quit more than 30 days ago; Tobacco use times per day: social smoker; Started at age: 18; Stopped at age: 23; entered on: 06/29/21 Sex EKG study * Event Display: ECG 12-Lead Authored Date: Please click on pdf link to open report * Event Display: ECG 12-Lead Authored Date: Ventricular Rate: 101 BPM Atrial Rate: 101 BPM P-R Interval: 124 ms QRS Duration: 78 ms Q-T Interval: 350 ms QTC Calculation(Bazett): 453 ms P Exton: -8 degrees R Exton: 14 degrees T Exton: 5 degrees Sinus tachycardia Otherwise normal ECG When compared with ECG of 21-AUG-2018 07:27, No significant change was found Confirmed by TYLER CHEEMA MD ([id number]) on 09/29/2022 5:52:27 PM [place]: TYLER CHEEMA MD Note * Event Display: Discharge/Transfer Note Hospital Authored Date: * Event Display: Discharge/Transfer Note Hospital Authored Date: CT Abdomen and Pelvis W contrast IV * Radha , ATIYA S: Geovanny Briones MD: VERIFY Event Display: Result: Authored Date: CT Abd/Pelvis W/ IV Contrast Only Hx of Present Illness: Pt comes in from home. Began vomiting on tuesday. Now presents with lumnp on her abd. Sent here by PCP for possible incarcerated hernia; Reason: Pain; Clinical Question(s): Obstruction; Order Comment: TECHNIQUE: Spiral CT through the abdomen and pelvis with IV contrast formatted in 3 planes. 100 cc of Omnipaque 300 was administered intravenously. This study was performed without oral contrast. Weight-based protocol using automatic tube modulation was used to optimize exposure parameters. CTDIvol Body: 21.32 mGy, DLP Body: 1045 mGy*cm. COMPARISON: 08/21/2018 CT of the chest, abdomen and pelvis. FINDINGS: Medical Billing And Coding Instructor View Findings, Lines and Tubes: None. Visualized Chest: 0.5 cm solid nodule in the right lower lobe (image 8 series 2) unchanged from 2020. Mild left basilar atelectasis secondary to compression from Bochdalek hernia. Diaphragm: Small to moderate fat-containing left Bochdalek hernia. Liver: Normal. Gallbladder: No CT evidence of gallbladder pathology. Bile ducts: No biliary ductal dilation. Spleen: Normal. Pancreas: Normal. Adrenal glands: Normal. Kidneys and ureters: No hydronephrosis, stones, or suspicious masses. Small hypodensities that are too small to characterize are noted, requiring no dedicated follow up. Multiple benign peripelvic cysts bilaterally, also not requiring follow-up. Cortical scarring in the upper pole of the right kidney. Questionable 1.0 cm hypoenhancing area at the upper pole of the left kidney could represent a prominent calyx secondary to scarring, however an underlying lesion is difficult to exclude. Bladder: Underdistended. Mild adjacent inflammatory changes could be secondary to the hernia. Reproductive organs: Prior hysterectomy. No adnexal masses. Stomach, small bowel, and large bowel: Moderate sized gastric diverticulum arising from the fundus.The stomach otherwise appears normal. Diffuse dilation of multiple small bowel loops, which measureup to 3.6 cm in caliber. The transition point corresponds to a moderate-sized right femoral hernia containing an obstructed loop of ileum. Mild inflammatory changes and trace fluid are seen within the hernia sac. Hernia neck measures 2.1 cm. The bowel loop in the hernia sac is mildly thickened, butwithout pneumatosis or definite imaging findings of ischemia. The remainder of the small bowel is decompressed leading up to the ileocecal valve. The rectum is normal. There is colonic diverticulosis predominantly affecting the descending and sigmoid colon without findings of acute diverticulitis. Appendix: Not seen, but no evidence of appendicitis. Peritoneum and retroperitoneum: Trace pelvic free fluid. No omental or mesenteric lesions. Lymph nodes: No enlarged lymph nodes. Blood vessels: Mild vascular calcifications but no aneurysm. No evidence of venous thrombosis. Abdominal and pelvic wall: Moderate sized right femoral hernia containing an obstructed loop of ileum. The neck of the hernia measures 2.1 cm. Bones: Degenerative changes in the spine. No acute osseous abnormality. IMPRESSION: 1. Small bowel obstruction secondary to a right femoral hernia containing a nonobstructed loop of ileum. There are mild inflammatory changes within the hernia sac and the loop of ileum in the hernia sac is mildly thickened which may indicate incarceration/strangulation. No pneumatosis or evidence of perforation. 2. Questionable 1.0 cm hypoenhancing area in the upper pole of the left kidney could be a prominentcalyx related to cortical scarring, however consider renal mass protocol MRI to exclude an underlying lesion. Preliminary findings were reported by virtual radiology. No significant discrepancy. WSN: [id number] Ordering Physician: Hardeep Farrell Dictated By: Geovanny Cardona MD Dictated Date/Time: 09/29/22 10:06 a Reviewed By: Geovanny Cardona MD Signed By: Geovanny Cardona MD Signed Date/Time: 09/29/22 10:06 am Transcribed By: ALVIN Transcribed Date/Time: 09/29/22 9:52 am Patient Care team information Care Team Personnel Name: Camille Mathew RN Position: S RN Member Role: Primary Care Nurse Name: Haley Burgess NP Position: [facility] Associate Professional Member Role: PCP Address: Address: [address] [place] [address]- Name: Suhail Duckworth RN Position: [facility] RN Supv Member Role: Primary Care Nurse Name: Holli Ramos RN Position: [facility] RN Member Role: Primary Care Nurse Name: Katina Samaniego Position: [facility] RN Member Role: Primary Care Nurse Name: Felecia Hernandez RN Position: [facility] Onco RN Member Role: Primary Care Nurse Name: Verito Alonzo RN Position: [facility] RN Member Role: Primary Care Nurse Name: Minh Bryant RN Position: [facility] RN Member Role: Primary Care Nurse Name: Eh Hu Position: [facility] ED TA [facility] Member Role: Patient Care Provider Name: Hardeep Farrell MD Position: [facility] ED Medicine MD Member Role: ED Attending Physician Address: Address: [address] [place] [address] [place] [address]- Name: Carlota Lam RN Position: [facility] ED RN W/OE and Tasks Member Role: Patient Care Provider Care Team Related Persons Name: ZAINA RBOERSON Address: home [address] [address]
--- OUTSIDE RECORDS SUMMARY | 2024-04-14 23:43 | XMS_ITS | Continuity of Care Document ---
Author Organization [facility] Sergo lt Address [address] [place] [address]- Care Team Providers Care Insulation Board Back Tender Name Role Phone Aditya GENERAL SUPERVISORHaley Primary Care Physician [phone] Encounter [facility] Date(s): 01/17/24 - 02/16/24 [facility] Adult [address] [place] [address]- Allergies, Adverse Reactions, Alerts No Known Allergies [...] virus vaccine, inactivated 03/18/16 Carrillo rded SARS-CoV-2(COVID-19)mRNA-LNP vac([id number]) 04/09/23 Recorded pneumococcal 20-valent conjugate vaccine 1 01/17/23 Given [id number] 12y+ bivalent booster vax 2 04/27/22 Given SARS-CoV-2 mRNA (josqvhl-erei-amifw) vax 09/30/21 Recorded SARS-CoV-2 (COVID-19) mRNA BNT-162b2 [...] pneumococcal 13-valent vaccine 06/20/15 Recorded 1Result Comment: [id number] 2Result Comment: [id number] Medications Acetaminophen take 2 tabs in AM [...] 6 Refills, Maintenance, 04/14/23 18:52:00 EDT, Geraldine, [facility] #[id number], Partial fill upon patient request if the [...] Care Nurse Name: Haley Burgess NP Position: [facility] Associate Professional Member Role: PCP Address: Address: [address] [place] [address]- Name: Poornima Martinez RN Position: S RN [...] Care Nurse Name: Verito Alonzo NP Position: [facility] Associate Professional Member Role: Primary Care Nurse Address: Address: [address] [place] [address]- [place] Name: Minh Bryant RN Position: S RN Member Role: Primary Care Nurse Care Team Related Persons Name: ZAINA ROBERSON Address: home [address] [place] [address]
--- OUTSIDE RECORDS SUMMARY | 2024-04-14 23:43 | XMS_ITS | Continuity of Care Document ---
Author Organization [facility] Sergo lt Address [address] [place] [address]- Care Team Providers Care Psychologist Clinical Name Role Phone Aditya ELEMENTARY INSTRUCTIONAL COACHHaley Primary Care Physician Encounter [facility] Date(s): 11/15/23 - 12/15/23 [facility] Adult [address] [place] [address]- Allergies, Adverse Reactions, Alerts No Known Allergies Immunizations Given and Recorded Vaccine Date Status Refusal Reason influenza virus vaccine, inactivated 04/09/23 Carrillo rded influenza virus vaccine, inactivated 04/09/22 Carrillo rded influenza virus vaccine, inactivated 02/17/21 Carrillo rded influenza virus vaccine, inactivated 03/23/18 Carrillo rded influenza virus vaccine, inactivated 04/01/17 Carrillo rded influenza virus vaccine, inactivated 03/18/16 Carrillo rded SARS-CoV-2(COVID-19)mRNA-LNP vac([id number]) 04/09/23 Recorded pneumococcal 20-valent conjugate vaccine 1 01/17/23 Given [id number] 12y+ bivalent booster vax 2 04/27/22 Given SARS-CoV-2 mRNA (vbhvlmn-qelm-dieac) vax 09/30/21 Recorded SARS-CoV-2 (COVID-19) mRNA BNT-162b2 [...] pneumococcal 13-valent vaccine 06/20/15 Recorded 1Result Comment: [id number] 2Result Comment: [id number] Medications cevimeline 30 mg oral capsule 1 capsule = 30 mg, By Mouth, 3 times a day, # 90 capsule, 5 Refills, Maintenance, 08/13/23 12:25:00EST, Capsule, [facility]/pharmacy #[id number], 153, cm, 07/18/23 10:07:00 EST, Height, [...] 6 Refills, Maintenance, 04/14/23 18:52:00 EDT, Paste, [facility]/pharmacy #[id number], Partial fill upon patient request if [...] Care Nurse Name: Haley Burgess NP Position: [facility] Associate Professional Member Role: PCP Address: Address: [address] [place] [id number]- [place] Name: Poornima Martinez RN Position: S RN Member Role: Primary Care Nurse Name: Suhail Duckworth RN Position: [facility] RN Supv Member Role: Primary Care Nurse Name: Holli Ramos RN Position: S RN Member Role: Primary Care Nurse Name: Katina Samaniego RN Position: S RN Member Role: Primary Care Nurse Name: Felecia Hernandez RN Position: S Onco RN Member Role: Primary Care Nurse Name: Verito Alonzo NP Position: [facility] Associate Professional Member Role: Primary Care Nurse Address: Address: [address] [place] [address] [facility] [place] [address]- [place] Name: Minh Bryant RN Position: S RN Member Role: Primary Care Nurse Care Team Related Persons Name: ZAINA ROBERSON Address: [address] [address]
--- OUTSIDE RECORDS SUMMARY | 2024-04-14 23:43 | XMS_ITS ---
Author Organization [facility] Address [address] [place] [address] Care Team Providers Care Wireless Field Technician Name Role Phone Haley Flores Primary Care Provider Unavail able Black, Juany Unavailable [phone] ALLERGIES Allergen (clinical drug ingredient) Drug/Non Drug Allergy documented on EMR Reaction Allergy Type Onset Date Status codeine Codeine rash Drug Allergy Active adhesive tape rash Drug Allergy Act marbella REASON FOR VISIT Pcp- 09/21/23, Ankle pain, Foot pain MEDICATIONS Medication SIG (Take, Route, Frequency, Duration) Notes Start Date End Date Status Physical Therapy . . . 2-3x/week for 3- 4 weeks 10/03/2023 Not-Taking Keflex 500 MG 1 capsule Orally Twi ce a day for 10 day(s) 09/06/2016 Not-Taking Keflex 500 MG 1 capsule Orally kris ry 12 hrs for 10 day(s) 05/20/2016 Not-Taking Benazepril HCl 20-25mg as directed Orally Not-Taking Glucosamine 500 MG 1 capsule with a robert l Orally Once a day for 30 day(s) Not-Taking Fenofibrate 160 MG 1 tablet Orally Once a day for 30 day(s) Active Omeprazole 20 MG 1 tablet Orally Once a day for 14 day(s) Active Multivitamin Active CeleBREX 200mg as directed Orally Not-Taking Cevimeline HCl 30 MG 1 capsule Orally Th ree times a day for 30 day(s) Active SOCIAL HISTORY Sex Assigned At : Social History Observation Description Sex Assigned At Unknown Tobacco use other than smoking: Question Answer Notes Are you an other tobacco user? 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 Localized, primary osteoarthritis of the ankle and/or foot ([id number]) VITAL SIGNS Height 5 ft 1 in in 03/08/2024 Weight 210 lbs 03/08/2024 BMI 39.67 kg/m2 03/08/2024 Blood pressure systolic 125 mm Hg 03/08/20 24 Blood pressure diastolic 72 mm Hg 024 Encounters Encounter Location Date Provider Diagnosis [facility] [place] [address] [place] [address] 03/08/2024 Juany Lopez Pain in left foot M79.672 ; Tendonitis M77.9 ; Pain in joint, ankle and foot, left M25.572 ; Osteoarthritis of right ankle and foot M19.071 ; Bursitis of left foot M77.52 and Pain in right ankle and joints of right foot M25.571 ASSESSMENTS Encounter Date Diagnosis Assessment Notes Treatment Notes Treatment Clinical Notes 03/08/2024 Pain in left foot (ICD-10 - M79.672) 03/08/2024 Tendonitis (ICD-10 - M77.9) Patient Educated with: INJECTIONTHERAPY .pdf (INJECTIONTHERAP Y.pdf) 03/08/2024 Pain in joint, ankle and foot, left (ICD-10 - M25.572) 03/08/2024 Osteoarthritis of right ankle and foot (ICD-10 - M19.071) 03/08/2024 Bursitis of left jong t (ICD-10 - M77.52) 03/08/2024 Pain in right ankle and joints of right foot (ICD-10 - M25.571) PLAN OF TREATMENT Treatment Notes Assessment Notes Tendonitis Patient Educated wit h: INJECTIONTHERAPY.pdf (INJECTIONTHERAPY.pdf) Next Appt Details Follow Up: 2 Months, Reason: Provider Name:Juany Lopez , 06/25/2024 02:45:00 PM, [address] [place], [address], Procedure Notes * Category Sub-Category Detail Notes Injection Tendon Sheath or Fascia 02356, J 0702 Injection Tendon Sheath w/ Celestone Soluspan 3mg [...] 0-1) out of 10 , LEFT foot (2) Progress Notes * Examination Category Sub-Category Detail Notes Neurological TINEL'S COMPRESSION: Negative ta rsal tunnel, carlos pedis, and medial calcaneal nerves , Negative, Saphenous nerve distribution Orthopedic GAIT ABNORMALITY: antalgic FOOT MORPHOLOGY: Pes Planus structure , Decreased Ankle joint dorsiflexion ROM, knee extended, Prominent, painful 1st Met-Cuneiform joint WITH inflammation left BUNION: Hallux in varus posi tion , LEFT , Medially prominent 1st MPJ, (+) Pain on palpation, inflammation present medially, Lateral tracking 1st MPJ incompletely reducible, LEFT ANKLE PAIN LOCATED: LEFT , Lateral ankle , (less) swelling , pain with ankle joint ROM , limited ankle joint range of motion ,No Pain on palpation to , ATFL , Peroneal tendons POP EDB TENDON LEFT at 50 percent less DIGITAL DEFORMITIES: Digital contracture , [...] today ORIENTED: person, place, and t lyndon X-Rays - IMAGING REPORT Findings: mild gen eralized decrease in bone density , dorsal degenerative changes of the tarsal joints Fracture: Negative fractures i dentified Digits: show asymmetrical dean int space narrowing at the PIPJ consistent with clinical finding of hammertoe deformity, show enlarged/hypertrophied phalangeal head(s) consistent for clinical finding of hammertoe deformity Foot structure: reveals excess prona tion with , anterior break in cyme line Views: 3 views of Foot , RI GHT , AP , LAT , MO Clinical Indication(s): Evaluate for Fra cture , Evaluate Biomechanical Deformity Heel Pain INSPECTION: History and Physical Notes * HPI (History of Present Illness) Category Sub-Category Detail Notes Ankle Pain Duration: a month Nature: sharp , aching Treatments: rest/alter normal da horacio activity,compression , Physical therapy,steriod injection (1L) Course: , improved 50percent Location: Outside aspect of th e Left ankle Onset/Cause: sudden-twisted foot/ ankle Aggravated by: standing , walking Foot Pain Location: , Midfoot , RIGH T Duration: , several weeks Course: worse Aggravated: any pressure Treatments: rest/alter normal da horacio activity
--- OUTSIDE RECORDS SUMMARY | 2024-04-14 23:43 | XMS_ITS | Continuity of Care Document ---
Author Organization [facility] ter Address [address] [place] [id number]- Care Team Providers Care Equipment Maintenance Technician Name Role Phone Aditya Haley HU Primary Care Physician [place] [facility] [place]18[place] - 12/18/[address] [id number] Discharge Disposition: A-D/C Home Attending Physician: [...] Refills, Soft Stop, 11/30/21 16:17:00 EDT, Cream, [facility] #[id number], Partial fill upon patient request if the prescription is for a schedule II opioid drug., 1 applica... Start Date: 11/30/21 Status: Ordered Miracle Mouthwash Miracle Mouthwash, See Instructions, # 580 mL, Refills 5, Tot. Refills 5, Maintenance, Benadryl ifwaty1ib+Nystatin susp(100,000 u/ml)4oz+Visc.Lido2%100ml+Mylanta 8oz. 5-10cc swish+spit/swallow Q2 hr [...] 1 Refills, Maintenance, 11/30/21 8:53:00 EDT, Tablet, [facility] #[id number], Partial fill upon patient request if the prescription is for a schedule II opi... Start Date: 11/30/21 Status: Ordered prochlorperazine 5 mg oral tablet 1 tablet = 5 mg, By Mouth, Every 6 hours, PRN Nausea & Vomiting, may cause drowsiness, # 30 tablet, 0 Refills, Maintenance, 11/30/21 8:53:00 EDT, [facility] #[id number], Partial fill upon patient request if the prescription is for a schedule II o... Start Date: 11/30/21 Status: Ordered traMADol 50 mg oral tablet 1 tablet = 50 mg, By Mouth, Every 12 hours, PRN as needed for pain, # 8 tablet, 0 Refills, Maintenance, 11/25/21 14:58:00 EDT, Tablet, [facility] #[id number], Partial fill upon patient request if the prescription is for a schedule II opioid drug.... Start Date: 11/25/21 Status: Ordered Problem List Condition Effective Dates Status Health Status Inform ant Allergic rhinitis(Confirmed) Active OAB (overactive bladder)(Confirmed) Active Chronic kidney disease (CKD) stage G3a/Ax(Confirmed) Active Bochdalek hernia(Confirmed) Active Degenerative lumbar disc(Confirmed) Active Dyslipidemia(Confirmed) Active GERD (gastroesophageal reflu x disease)(Confirmed) Active History of breast cancer ([facility] breast) 1996 S/P umpectomy and radiation(Confirmed) Active Hypertension(Confirmed) Active Nephrolithiasis(Confirmed) Active Malignant neoplasm of tonsil(Confirmed) Active Morbid obesity(Confirmed) Active Multiple pulmonary nodules - incidental finding stable, next CT December 2019(Confirmed) Active DNR (do not resuscitate)(Confirmed) Active Osteopenia of femoral neck(Confirmed) Active NSAID long-term use(Confirmed) Active Severe obesity(Confirmed) Active Vital Signs Most recent to oldest [Reference Range]: 1 2 Height 154.94 cm (12/18/21 12:06 PM) 154.94 cm (12/16/21 10:55 AM) Weight 100.45 kg (12/16/21 10:55 AM) Oxygen Saturation [94-100 %] 96 % (12/18/21 12:06 PM) Pulse Rate [55-90 bpm] 89 bpm (12/18/21 12:06 PM) Body Mass Index [18.5-24.99] 41.84 *>HHI* (12/16/21 10:55 AM) Blood Pressure [90-138/55-84 mm Hg] 136/ 57mm Hg (12/18/21 12:06 PM) Respiratory Rate [16-30 br/min] 18 br/mi n (12/18/21 12:06 PM) Temperature [96.8-100.4 DegF] 98.4 DegF (12/18/21 12:06 PM) Mode of Delivery (Oxygen) Room air (12/18/21 12:06 PM) Temperature Route Oral (12/18/21 12:06 PM) Dry Weight 100.45 kg (12/16/21 10:55 AM) Social History Social History Type Response Smoking Status Former smoker, quit more than 30 days ago; Tobacco use times per day: social smoker; Started at age: 18; Stopped at age: 23; entered on: 06/29/21 Sex
--- OUTSIDE RECORDS SUMMARY | 2024-04-14 23:44 | XMS_ITS | Patient Health Record ---
Author Organization [facility] Address [address] [place] [address] Care Team Providers Care Communications Maintainer Name Role Phone Haley Flores Primary Care Provider Unavail able Black, Juany Unavailable [phone] ALLERGIES Allergen (clinical drug ingredient) Drug/Non Drug Allergy documented on EMR Reaction Allergy Type Onset Date Status codeine Codeine rash Drug Allergy Active adhesive tape rash Drug Allergy Act marbella RESULTS Component Value Reference Range Notes X ray : Ankle, left 2V Reviewed date:10/03/2023 05:13:57 PM Interpretation:See Examination above Performing Lab: Notes/Report: See Examination above packs X ray : Foot, left 2V Reviewed date:10/03/2023 05:13:46 PM Interpretation:See Examination above Performing Lab: Notes/Report: See Examination above REASON FOR REFERRAL No Information MEDICATIONS Medication SIG (Take, Route, Frequency, Duration) Notes Start Date End Date Status Fenofibrate 160 MG 1 tablet Orally Once a day for 30 day(s) Active Omeprazole 20 MG 1 tablet Orally Once a day for 14 day(s) Active Multivitamin Active Physical Therapy . . . 2-3x/week for 3- 4 weeks 10/03/2023 Not-Taking Keflex 500 MG 1 capsule Orally Twi ce a day for 10 day(s) 09/06/2016 Not-Taking CeleBREX 200mg as directed Orally Not-Taking Cevimeline HCl 30 MG 1 capsule Orally Th ree times a day for 30 day(s) Active Keflex 500 MG 1 capsule Orally kris ry 12 hrs for 10 day(s) 05/20/2016 Not-Taking Benazepril HCl 20-25mg as directed Orally Not-Taking Glucosamine 500 MG 1 capsule with a robert l Orally Once a day for 30 day(s) Not-Taking SOCIAL HISTORY Sex Assigned At : Social [...] (acquired), left foot (M20.12) Active confirmed Acquired hallu x valgus (99095351) Problem Other hammer toe(s) (acquired), right foot (M20.41) Active confirmed Acquired hamme r toe of right foot (3969604241784227 ) Problem Other hammer toe(s) (acquired), left foot (M20.42) Active confirmed Acquired hamme r toe of left foot (0099025577926995 ) Problem Osteoarthritis of right ankle and foot (M19.071) Active confirmed Localized, primary osteoarthritis of the ankle and/or foot (915687525) Problem Interstitial myositis of left foot (M60.172) Active confirmed Interstitial myositis (30220308) Problem Varus deformity of left great toe (M20.32) Active confirmed [id number] VITAL SIGNS Blood pressure diastolic 72 mm Hg 03/08/2024 Height 5 ft 1 in in 03/08/2024 Blood pressure systolic 125 mm Hg 03/08/2024 Weight 210 lbs 03/08/2024 BMI 39.67 kg/m2 03/08/2024 PROCEDURES Procedure Date Ordered Date Performed Result Body Sit e 75337,[id number]-WPI TENDON SHEATH/LIGAMENT 12/01/2023 N/A Encounters Encounter Location Date Provider Diagnosis [facility] [place] [address] [place] [address] 10/03/2023 Juany Black Pain in left foot M79.672 ; Sprain of anterior talofibular ligament of left ankle, initial encounter S93.492A ; Peroneal tendinitis, left M76.72 ; Tendonitis M77.9 ; Sprain of left foot, initial encounter S93.602A ; Hallux varus, left M20.32 and Pain in joint, ankle and foot, left M25.[address] [address] 12/01/2023 Juany Black Pain in left foot [...] Sprain of left foot, subsequent encounter S93.602D [address] [address] 01/02/2024 Juany Black [address] [address] 03/08/2024 Juany Black Pain in left foot M79.672 ; Tendonitis M77.9 ; Pain in joint, ankle and foot, left M25.572 ; Osteoarthritis of right ankle and foot M19.071 ; Bursitis of left foot M77.52 and Pain in right ankle and joints of right foot M25.571 ASSESSMENTS Encounter Date Diagnosis Assessment Notes Treatment Notes Treatment Clinical Notes 10/03/2023 Pain in left foot (ICD-10 - M79.672) 10/03/2023 Sprain of anterior talofibular ligament of left ankle, initial encounter (ICD-10 - S93.492A) 12/01/2023 Pain in left foot (ICD-10 - M79.672) 03/08/2024 Pain in left foot (ICD-10 - M79.672) 03/08/2024 Tendonitis (ICD-10 - M77.9) Patient Educated with: INJECTIONTHERAPY .pdf (INJECTIONTHERAP Y.pdf) 12/01/2023 Hallux varus, left (ICD-10 - M20.32) 03/08/2024 Pain in joint, ankle and foot, left (ICD-10 - M25.572) 12/01/2023 Peroneal tendinitis, left (ICD-10 - M76.72) 10/03/2023 Peroneal tendinitis, left (ICD-10 - M76.72) 10/03/2023 Tendonitis (ICD-10 - M77.9) 12/01/2023 Tendonitis (ICD-10 - M77.9) Patient Educated with: INJECTIONTHERAPY .pdf (INJECTIONTHERAP Y.pdf) 03/08/2024 Osteoarthritis of right ankle and foot (ICD-10 - M19.071) 03/08/2024 Bursitis of left jong t (ICD-10 - M77.52) 10/03/2023 Sprain of left foot, initial encounter (ICD-10 - S93.602A) 12/01/2023 Pain in joint, ankle and foot, left (ICD-10 - M25.572) 03/08/2024 Pain in right ankle and joints of right foot (ICD-10 - M25.571) 10/03/2023 Hallux varus, left (ICD-10 - M20.32) 12/01/2023 Pain in left ankle and joints of left foot (ICD-10 - M25.572) 10/03/2023 Pain in joint, ankle and foot, left (ICD-10 - M25.572) 12/01/2023 Bursitis of left jong t (ICD-10 - M77.52) 12/01/2023 Hallux valgus (acquired), left foot (ICD-10 - M20.12) 12/01/2023 Sprain of anterior talofibular ligament of left ankle, subsequent encounter (ICD-10 - S93.492D) 12/01/2023 Sprain of left foot, subsequent encounter (ICD-10 - S93.602D) 10/03/2023 Other PLAN OF TREATMENT Pending Test Test Name Order Date [id number] NAIL, 1-5 05/29/2012 62671-Oygpdgyn Plate 03/22/2012 35452-VWO 12/11/2012 45526-NUE 09/06/2016 36119- Debride <25 sq cm 10/07/2016 25903- Debride <25 sq cm 01/17/2013 94266- Debride <25 sq cm 02/14/2013 07417- Debride <25 sq cm 06/02/2016 09572-NLXPEBG SKIN/TISSUE 09/20/2016 [id number]-[id number] SKIN/TISSUE 01/03/2013 14778 I&D ABSCESS- SIMPLE,SINGLE 016 33924 I&D ABSCESS- SIMPLE,SINGLE 013 58529 I&D ABSCESS- SIMPLE,SINGLE 016 16394, J0702- INJECT or DRAIN, JOINT/BUR SA 12/08/2011 57536-Ldjb. Subungual Hematoma 2 32120,N8090-YKC TENDON SHEATH/LIGAMENT 0 12/01/2023 H3773-Iwjjmzypd 3mg 12/08/2011 Next Appt Details Provider Name:Juany Lopez , 06/25/2024 02:45:00 PM, [address] [place], [address], Insurance Providers Payer Name Payer Address Payer Phone Subscriber Number Group Number Insured Name Patient Relationship to Insured Coverage Start Date Coverage End Date Medicare National [employer] [address] [place] [address] [id number] Jennifer Mcmullen Self - patient is the insured A[employer] Secondary to Medicare [address] [place] [address] [id number] Jennifer Mcmullen Self - patient is the insured MEDICAL (GENERAL) HISTORY Medical History History ICD Code back, hip, knee pain throat cancer high blood pressure reflux measles mumps chicken pox Transfusions Broken bones CAD (Cholesterol) Cataracts covid-19 Kidney disease Cancer Surgical History Surgery Date(Month/Year) lumpectomy, right breast 1996 bilateral knee replacements 2010 hysterectomy 1990 knee surgery 2011 hernia 2022 kidney stones 2019 decompression ulnar nerve, left arm 2016 throat cancer 2021 cancer removed from left anterior griffin 2 024 Hospitalization History Reason Date(Month/Year) Revision of left knee sx 08/25/11
[2024-04-15] VITALS (7 sets, daily range): BP systolic 125–165; BP diastolic 53–82; PULSE 92–95; RESP 16–22; TEMP 36.7–36.9; O2SAT 94–99
[2024-04-15] MEDS: ondansetron HCL 4 MG/2 ML VIAL IVPUSH (01:18)
[2024-04-15] MEDS: propofoL 200 MG/20 ML VIAL 100 MG IVPUSH (01:20)
== END 2024-04-15 03:15 | disposition home or self-care (01) ==
PROVIDERS: Emergency Provider Emergency Medicine; PCP Nurse Practitioner Family
DX: S09.90XA Unspecified injury of head, initial encounter (principal); S43.014A Anterior dislocation of right humerus, initial encounter; W10.8XXA Fall (on) (from) other stairs and steps, initial encounter; Y93.89 Activity, other specified; Y92.018 Other place in single-family (private) house as the place of occurrence of the external cause; Y99.9 Unspecified external cause status
CPT/HCPCS: 23655; 70450; 72125; 73030; 73060; 99284; J2405; J2704